=== PATIENT | male | born 1930 | race African-American/Black ===

== ENCOUNTER 2016-10-12 08:34 | Day surgery (SDC) | payer MEDICARE, MEDICAID ==
[~2016-10-12 08:34] MED LIST: CYCLOPENTOLATE 0.2%/PHENYLEPHRINE 1% OPH SOLN 2 ML OS PRN; EPINEPHRINE INJ/PF 1 MG/1 ML AMPULE ONE; KETOROLAC TROMETHAMINE 0.45% 4 DROP/0.4 ML DROPERETTE OS PRN; LIDOCAINE 1% INJ-PF (10 MG/ML) 30 ML SDV ONE; TROPICAMIDE 1% OPH SOLN 3 ML OS PRN
[2016-10-12] MEDS: BESIFLOXACIN HCL 0.6% OPH SUSP 5 ML BOTTLE OS PRN ×4 (08:51→09:58)
[2016-10-12] MEDS: TETRACAINE HCL 0.5% OPH SOLN 2 ML OS PRN ×3 (08:52→09:33)
[2016-10-12] MEDS: CYCLOPENTOLATE 0.2%/PHENYLEPHRINE 1% OPH SOLN 2 ML OS PRN ×3 (08:56→09:16)
[2016-10-12] MEDS: TROPICAMIDE 1% OPH SOLN 3 ML OS PRN ×2 (09:03→09:14)
[2016-10-12] MEDS ORDERED: MIDAZOLAM 2 MG/2 ML INJ ONE (09:28)
[2016-10-12] MEDS: CHONDR SU A NA/HYALUR INTRAOC KIT (SURGICARE) ONE ×2 (09:53)
--- NOTE | 2016-10-12 16:54 | [facility] OPERATIVE REPORT E ---
[facility] Operative Report NAME: Terrell MA AGE: 86Y DATE OF SURGERY: ROOM: PREOPERATIVE DIAGNOSIS: CATARACT, LEFT EYE. POSTOPERATIVE DIAGNOSIS: CATARACT, LEFT EYE. OPERATION: Cataract extraction with intraocular lens implant of the left eye. SURGEON: MARCO A ANAND M.D. ANESTHESIA: Topical. PROCEDURE: After obtaining appropriate consent, the patient's left eye was prepped and draped in sterile fashion as well as the surgeon in a sterile manner and cataract surgery was started. First a paracentesis blade was used to make a small side-port incision. Viscoelastic was used to inflate the anterior chamber. Next a 2.4 mm incision was made with the paracentesis blade. A continuous capsulorrhexis incision was made using a cystotome and Utrata forceps. Following this hydrodissection was carried out to make the lens fully loose and mobile and it was rotated 90 degrees. Following this, a wcoxxe-rqz-yhqcitw technique was used to phacoemulsify the lens with a CDE of 15.48. The remaining cortex was removed with irrigation/aspiration. Provisc was instilled into the capsular bag to inflate the bag. A SN60WF, 19.0 diopter lens was placed. The remaining viscoelastic material was removed with irrigation/aspiration. Following this, a 10-0 nylon suture was used to close the incision and it was found to be watertight. Vigamox was instilled in the eye and a protective shield was placed over the eye. The patient returned to the postoperative recovery in stable condition. DICTATING PHYSICIAN: MARCO A ANAND M.D. [id number] PHY#: [id number] ID: [id number] JOB#: [id number] ACCT: [id number] cc:MARCO A ANAND M.D. >
--- NOTE | 2016-10-12 16:54 | DISCHARGE SUMMARY E ---
Discharge Summary NAME: Terrell MA : 1930 AGE: 86Y ADMITTED: 10/12/2016 DISCHARGED: 10/12/2016 HISTORY: This is an 86-year-old male who underwent cataract extraction of the left eye. DIAGNOSIS: Cataract left eye. He underwent surgery because he was having trouble seeing words on the TV. DISCHARGE INSTRUCTIONS: He is to be on a regular diet. No bending at his waist, no heavy lifting. He is to use Besivance, Ilevro, and Durezol at 3:00 p.m. and 8:00 p.m., and sleep with a rigid shield. I will see him for his one day postoperative tomorrow. DICTATING PHYSICIAN: MARCO A ANAND M.D. [id number] PHY#: [id number] ID: [id number] JOB#: [id number] ACCT: [id number] cc:MARCO A ANAND M.D. >
== END 2016-10-12 10:52 | disposition home or self-care (01) ==
LOC: SC 08:34
PROVIDERS: ATTEND Internal Medicine
PROC: 08RK3JZ Replacement of Left Lens with Synthetic Substitute, Percutaneous Approach (ICD-10-PCS; principal; 2016-10-12 09:30)
DX: H25.813 Combined forms of age-related cataract, bilateral (principal); E07.9 Disorder of thyroid, unspecified; I10 Essential (primary) hypertension; M10.9 Gout, unspecified; Z79.899 Other long term (current) drug therapy; Z79.82 Long term (current) use of aspirin; Z95.0 Presence of cardiac pacemaker
CPT/HCPCS: 66984; V2632; J2250; J3490 ×2; A9270; J0171; 142

== ENCOUNTER 2016-11-02 08:05 | Day surgery (SDC) | payer MEDICARE, MEDICAID ==
[~2016-11-02 08:05] MED LIST changes: -CYCLOPENTOLATE 0.2%/PHENYLEPHRINE 1% OPH SOLN 2 ML OS PRN; -EPINEPHRINE INJ/PF 1 MG/1 ML AMPULE ONE; +KETOROLAC TROMETHAMINE 0.45% 4 DROP/0.4 ML DROPERETTE OD PRN; -KETOROLAC TROMETHAMINE 0.45% 4 DROP/0.4 ML DROPERETTE OS PRN; -LIDOCAINE 1% INJ-PF (10 MG/ML) 30 ML SDV ONE; -TROPICAMIDE 1% OPH SOLN 3 ML OS PRN
[2016-11-02] MEDS: TETRACAINE HCL 0.5% OPH SOLN 2 ML OD PRN ×3 (08:52→09:32)
[2016-11-02] MEDS: TROPICAMIDE 1% OPH SOLN 3 ML OD PRN ×3 (08:53→09:13)
[2016-11-02] MEDS: CYCLOPENTOLATE 0.2%/PHENYLEPHRINE 1% OPH SOLN 2 ML OD PRN ×3 (08:54→09:14)
[2016-11-02] MEDS: BESIFLOXACIN HCL 0.6% OPH SUSP 5 ML BOTTLE OD PRN ×3 (08:54→10:06)
[2016-11-02] MEDS ORDERED: EPINEPHRINE INJ/PF 1 MG/1 ML AMPULE ONE (09:04)
[2016-11-02] MEDS ORDERED: LIDOCAINE 1% INJ-PF (10 MG/ML) 30 ML SDV ONE (09:05)
[2016-11-02] MEDS ORDERED: CHONDR SU A NA/HYALUR INTRAOC KIT (SURGICARE) ONE (09:05)
[2016-11-02] MEDS ORDERED: MIDAZOLAM 2 MG/2 ML INJ ONE (09:23)
[2016-11-02] MEDS ORDERED: FENTANYL CITRATE INJ/PF 100 MCG/2 ML AMPUL ONE (09:23)
--- NOTE | 2016-11-02 20:13 | [facility] OPERATIVE REPORT E ---
[facility] Operative Report NAME: Terrell MA AGE: 86Y DATE OF SURGERY: 11/02/2016 ROOM: PREOPERATIVE DIAGNOSIS: CATARACT, RIGHT EYE. POSTOPERATIVE DIAGNOSIS: CATARACT, RIGHT EYE. OPERATION: Cataract extraction with intraocular lens implant of the right eye. SURGEON: MARCO A ANAND M.D. ANESTHESIA: Topical. PROCEDURE: After obtaining appropriate consent, the patient's right eye was prepped and draped in sterile fashion as well as the surgeon in a sterile manner and cataract surgery was started. First a paracentesis blade was used to make a small side-port incision. Viscoelastic was used to inflate the anterior chamber. Next a 2.4 mm incision was made with the paracentesis blade. A continuous capsulorrhexis incision was made using a cystotome and Utrata forceps. Following this hydrodissection was carried out to make the lens fully loose and mobile and it was rotated 90 degrees. Following this, a gljbqs-ruo-fjwmsgr technique was used to phacoemulsify the lens with a CDE of 15.74. The remaining cortex was removed with irrigation/aspiration. Provisc was instilled into the capsular bag to inflate the bag. A SN60WF, 18.0 diopter lens was placed. The remaining viscoelastic material was removed with irrigation/aspiration. Following this, a 10-0 nylon suture was used to close the incision and it was found to be watertight. Vigamox was instilled in the eye and a protective shield was placed over the eye. The patient returned to the postoperative recovery in stable condition. DICTATING PHYSICIAN: MARCO A ANAND M.D. [id number] [id number] PHY#: [id number] ID: [id number] JOB#: [id number] ACCT: [id number] cc:MARCO A ANAND M.D. >
--- NOTE | 2016-11-02 20:18 | DISCHARGE SUMMARY E ---
Discharge Summary NAME: Terrell MA : 1930 AGE: 86Y ADMITTED: 11/02/2016 DISCHARGED: 11/02/2016 This is an 86-year-old male who underwent cataract extraction of the right eye. DIAGNOSIS: Cataract, right eye. He underwent surgery because he was having difficulty reading small print *------*. DISCHARGE INSTRUCTIONS: He is to be on a regular diet. No bending at his waist, no heavy lifting. He is to use Besivance, Ilevro, and Durezol at 3:00 p.m. and 8:00 p.m., and sleep with a rigid shield. I will see him for his one day postoperative tomorrow. DICTATING PHYSICIAN: MARCO A ANAND M.D. [id number] [id number] PHY#: [id number] ID: [id number] JOB#: [id number] ACCT: [id number] cc:MARCO A ANAND M.D. >
== END 2016-11-02 11:06 | disposition home or self-care (01) ==
LOC: SC 08:05
PROVIDERS: ATTEND Internal Medicine
PROC: 08RJ3JZ Replacement of Right Lens with Synthetic Substitute, Percutaneous Approach (ICD-10-PCS; principal; 2016-11-02 09:30)
DX: H25.811 Combined forms of age-related cataract, right eye (principal); Z96.1 Presence of intraocular lens; I10 Essential (primary) hypertension; E07.9 Disorder of thyroid, unspecified; M10.9 Gout, unspecified; Z79.899 Other long term (current) drug therapy; Z88.8 Allergy status to other drugs, medicaments and biological substances; Z79.82 Long term (current) use of aspirin
CPT/HCPCS: 66984; V2632; J2250; J3490 ×2; A9270; J0171; J3010; 142

== ENCOUNTER → 2016-11-17 | Outpatient (CLI) | payer MEDICARE, MEDICAID ==
[2016-11-17 12:09] LABS: ABSOLUTE BASOPHILS # (AUTO) 0.1 10^3/uL (0.0-0.2); ABSOLUTE EOSINOPHILS # (AUTO) 0.1 10^3/uL (0.0-0.6); ABSOLUTE LYMPHOCYTES (AUTO) 1.1 10^3/uL (0.5-4.7); ABSOLUTE MONOCYTES (AUTO) 0.8 10^3/uL (0.1-1.4); BASOPHILS % (AUTO) 1.4 % (0-2); HEMATOCRIT 32.2 % (37.9-51.0); HEMOGLOBIN 10.5 g/dL (13.5-17.0); HGB HCT DIFFERENCE -0.7; MEAN CORPUSCULAR HEMOGLOBIN 34.1 pg (27.0-33.4); MEAN CORPUSCULAR HGB CONC 32.6 g/dL (32.0-36.0); MEAN CORPUSCULAR VOLUME 105 fl (80-97); MONOCYTES % (AUTO) 15.1 % (3-13); RED BLOOD COUNT 3.08 10^6/uL (4.35-5.55); RED CELL DISTRIBUTION WIDTH 16.7 % (11.5-14.0); SEGMENTED NEUTROPHILS % (AUTO) 59.5 % (42-78); WHITE BLOOD COUNT 5.1 10^3/uL (4.0-10.5)
[2016-11-17 12:45] LABS: ALBUMIN 4.1 g/dL (3.5-5.0); ANION GAP 14 (5-19); BLOOD UREA NITROGEN 55 mg/dL (7-20); CARBON DIOXIDE 22 mmol/L (22-30); CHLORIDE 108 mmol/L (98-107); CREATININE RESULT 1.99 mg/dL (0.52-1.25); GLUCOSE 88 mg/dL (75-110); PHOSPHORUS 4.2 mg/dL (2.5-4.5); POTASSIUM 4.6 mmol/L (3.6-5.0); SODIUM 143.7 mmol/L (137-145)
[2016-11-18 10:37] LABS: CREATININE URINE 256.8 mg/dL (Not Estab.); MICROALBUMIN URINE 6.3 ug/mL (Not Estab.)
[2016-11-18 14:15] LABS: VITAMIN D 25-HYDROXY 61.2 ng/mL (30.0-100.0)
== END ==
LOC: OD 11:15
PROVIDERS: ATTEND Internal Medicine Nephrology
DX: N18.3 Chronic kidney disease, stage 3 (moderate) (principal); D63.1 Anemia in chronic kidney disease; E55.9 Vitamin D deficiency, unspecified
CPT/HCPCS: 36415; 80048; 82040; 82043; 82306; 82570; 83970; 84100; 85025

== ENCOUNTER → 2017-05-24 | Outpatient (CLI) | payer MEDICARE, MEDICAID ==
[2017-05-24 11:08] LABS: ABSOLUTE LYMPHOCYTES (AUTO) 0.8 10^3/uL (0.5-4.7); ABSOLUTE MONOCYTES (AUTO) 0.5 10^3/uL (0.1-1.4); ABSOLUTE NEUT (AUTO) 6.7 10^3/uL (1.7-8.2); BASOPHILS % (AUTO) 0.3 % (0-2); EOSINOPHILS % (AUTO) 0.1 % (0-6); HEMOGLOBIN 10.4 g/dL (13.5-17.0); HGB HCT DIFFERENCE 0.2; LYMPHOCYTES % (AUTO) 9.9 % (13-45); MEAN CORPUSCULAR HEMOGLOBIN 34.1 pg (27.0-33.4); MEAN CORPUSCULAR HGB CONC 33.4 g/dL (32.0-36.0); MEAN CORPUSCULAR VOLUME 102 fl (80-97); MONOCYTES % (AUTO) 6.3 % (3-13); RED BLOOD COUNT 3.04 10^6/uL (4.35-5.55); RED CELL DISTRIBUTION WIDTH 15.8 % (11.5-14.0); SEGMENTED NEUTROPHILS % (AUTO) 83.4 % (42-78)
[2017-05-24 11:26] LABS: ANION GAP 17 (5-19); BLOOD UREA NITROGEN 38 mg/dL (7-20); CALCIUM 9.9 mg/dL (8.4-10.2); CARBON DIOXIDE 21 mmol/L (22-30); CHLORIDE 104 mmol/L (98-107); GLUCOSE 109 mg/dL (75-110); POTASSIUM 4.5 mmol/L (3.6-5.0); SODIUM 141.6 mmol/L (137-145)
[2017-05-24 12:32] LABS: FOLATE 8.97 ng/mL (>2.76)
== END ==
LOC: OD 10:08
PROVIDERS: ATTEND Internal Medicine Nephrology
DX: N18.3 Chronic kidney disease, stage 3 (moderate) (principal); D63.1 Anemia in chronic kidney disease
CPT/HCPCS: 36415; 80048; 82607; 82728; 82746; 83540; 83550; 85025

== ENCOUNTER → 2017-11-28 | Outpatient (CLI) | payer MEDICARE, MEDICAID ==
[2017-11-28 10:39] LABS: ABSOLUTE EOSINOPHILS # (AUTO) 0.1 10^3/uL (0.0-0.6); ABSOLUTE LYMPHOCYTES (AUTO) 1.7 10^3/uL (0.5-4.7); ABSOLUTE MONOCYTES (AUTO) 0.4 10^3/uL (0.1-1.4); ABSOLUTE NEUT (AUTO) 3.6 10^3/uL (1.7-8.2); BASOPHILS % (AUTO) 0.5 % (0-2); EOSINOPHILS % (AUTO) 2.2 % (0-6); HEMATOCRIT 33.1 % (37.9-51.0); HEMOGLOBIN 10.8 g/dL (13.5-17.0); LYMPHOCYTES % (AUTO) 28.6 % (13-45); MEAN CORPUSCULAR HEMOGLOBIN 33.1 pg (27.0-33.4); MEAN CORPUSCULAR HGB CONC 32.7 g/dL (32.0-36.0); MEAN CORPUSCULAR VOLUME 101 fl (80-97); MONOCYTES % (AUTO) 7.1 % (3-13); PLATELET COUNT 117 10^3/uL (150-450); RED BLOOD COUNT 3.27 10^6/uL (4.35-5.55); RED CELL DISTRIBUTION WIDTH 14.6 % (11.5-14.0); SEGMENTED NEUTROPHILS % (AUTO) 61.6 % (42-78); TOTAL CELLS COUNTED % (AUTO) 100 %; WHITE BLOOD COUNT 5.8 10^3/uL (4.0-10.5)
[2017-11-28 10:45] LABS: ANION GAP 12 (5-19); BLOOD UREA NITROGEN 39 mg/dL (7-20); CALCIUM 9.9 mg/dL (8.4-10.2); CARBON DIOXIDE 25 mmol/L (22-30); CHLORIDE 106 mmol/L (98-107); GLUCOSE 126 mg/dL (75-110); IRON(TIBC) 119.1 ug/dL (49-181); POTASSIUM 3.9 mmol/L (3.6-5.0); SODIUM 142.9 mmol/L (137-145)
[2017-11-28 11:48] LABS: FOLATE 7.91 ng/mL (>2.76)
== END ==
LOC: OD 09:09
PROVIDERS: ATTEND Internal Medicine Nephrology
DX: N18.9 Chronic kidney disease, unspecified (principal)
CPT/HCPCS: 36415; 80048; 82607; 82728; 82746; 83540; 83550; 84466; 85025

== ENCOUNTER → 2018-05-31 | Outpatient (CLI) | payer MEDICARE, MEDICAID ==
[2018-05-31 13:18] LABS: APPEARANCE,URINE CLOUDY; BILIRUBIN,URINE NEGATIVE (NEGATIVE); GLUCOSE, URINE NEGATIVE (NEGATIVE); KETONES,URINE NEGATIVE (NEGATIVE); LEUKOCYTE ESTERASE,URINE TRACE (NEGATIVE); NITRITE,URINE NEGATIVE (NEGATIVE); PROTEIN,URINE NEGATIVE (NEGATIVE)
[2018-05-31 13:20] LABS: COLOR,URINE YELLOW
[2018-05-31 13:47] LABS: ALBUMIN 3.8 g/dL (3.5-5.0); ANION GAP 13 (5-19); BLOOD UREA NITROGEN 24 mg/dL (7-20); CALCIUM 9.7 mg/dL (8.4-10.2); CARBON DIOXIDE 21 mmol/L (22-30); CHLORIDE 108 mmol/L (98-107); GLUCOSE 103 mg/dL (75-110); PHOSPHORUS 3.6 mg/dL (2.5-4.5); POTASSIUM 4.5 mmol/L (3.6-5.0); SODIUM 141.8 mmol/L (137-145)
[2018-05-31 14:18] LABS: ABSOLUTE EOSINOPHILS # (AUTO) 0.2 10^3/uL (0.0-0.6); ABSOLUTE LYMPHOCYTES (AUTO) 1.4 10^3/uL (0.5-4.7); ABSOLUTE MONOCYTES (AUTO) 0.4 10^3/uL (0.1-1.4); ABSOLUTE NEUT (AUTO) 3.4 10^3/uL (1.7-8.2); BASOPHILS % (AUTO) 0.9 % (0-2); EOSINOPHILS % (AUTO) 3.3 % (0-6); HEMATOCRIT 32.6 % (37.9-51.0); HEMOGLOBIN 10.9 g/dL (13.5-17.0); MEAN CORPUSCULAR HEMOGLOBIN 34.5 pg (27.0-33.4); MEAN CORPUSCULAR HGB CONC 33.3 g/dL (32.0-36.0); MEAN CORPUSCULAR VOLUME 103 fl (80-97); PLATELET COUNT 143 10^3/uL (150-450); RED BLOOD COUNT 3.15 10^6/uL (4.35-5.55); RED CELL DISTRIBUTION WIDTH 16.2 % (11.5-14.0); SEGMENTED NEUTROPHILS % (AUTO) 61.8 % (42-78); TOTAL CELLS COUNTED % (AUTO) 100 %; WHITE BLOOD COUNT 5.5 10^3/uL (4.0-10.5)
[2018-06-01 13:37] LABS: CREATININE URINE 199.6 mg/dL (Not Estab.); MICROALBUMIN URINE 13.7 ug/mL (Not Estab.)
== END ==
LOC: OD 12:02
PROVIDERS: ATTEND Internal Medicine Nephrology
DX: I12.9 Hypertensive chronic kidney disease with stage 1 through stage 4 chronic kidney disease, or unspecified chronic kidney disease (principal); N18.3 Chronic kidney disease, stage 3 (moderate); D63.1 Anemia in chronic kidney disease; E55.9 Vitamin D deficiency, unspecified
CPT/HCPCS: 36415; 80048; 81001; 82040; 82043; 82306; 82570; 83970; 84100; 85025

== ENCOUNTER → 2018-08-16 | Outpatient (CLI) | payer MEDICARE, MEDICAID ==
--- NOTE | 2018-08-16 13:11 | RADIOLOGY REPORT (SQ) ---
EXAM DESCRIPTION: CHEST PA/LATERAL COMPLETED DATE/TIME: 08/16/2018 12:41 pm REASON FOR STUDY: SOB COMPARISON: Two-view chest 08/19/2014 CT chest 06/22/2011 EXAM PARAMETERS: NUMBER OF VIEWS: two views TECHNIQUE: Digital Frontal and Lateral radiographic views of the chest acquired. RADIATION DOSE: NA LIMITATIONS: none FINDINGS: LUNGS AND PLEURA: Small bilateral pleural effusions are present. There is mild bibasilar airspace disease likely atelectasis. Pneumonia could not entirely be exclude d. No pneumothorax MEDIASTINUM AND HILAR STRUCTURES: No masses or contour abnormalities. HEART AND VASCULAR STRUCTURES: Mild cardiomegaly BONES: No acute findings. HARDWARE: Left-sided pacemaker/defibrillator OTHER: No other significant finding. IMPRESSION: Small bilateral pleural effusions with mild bibasilar atelectasis TECHNICAL DOCUMENTATION: JOB ID: [id number] [employer]- All Rights Reserved Reading location - IP/workstation name: [email or web address]
--- NOTE | 2018-08-16 13:13 | RADIOLOGY REPORT (SQ) ---
EXAM DESCRIPTION: KUB COMPLETED DATE/TIME: 08/16/2018 12:41 pm REASON FOR STUDY: ABDOMINAL PAIN R06.02 SHORTNESS OF BREATH R10.84 GENERALIZED ABDOMINAL PAIN COMPARISON: Three-way abdomen series 08/18/2014 CT abdomen pelvis 08/19/2014 NUMBER OF VIEWS: One view. TECHNIQUE: Supine radiographic image of the abdomen acquired. LIMITATIONS: None. FINDINGS: BOWEL GAS PATTERN: Normal bowel gas pattern. No dilated loops. CALCIFICATIONS: Multiple calcified pelvic phleboliths. Arterial vascular calcifications in the pelvi s SOFT TISSUES: No gross mass or suggestion of organomegaly. HARDWARE: None in the abdomen. BONES: Advanced osteoarthritis bilateral hips. Advanced facet arthropathy lower lumbar spine OTHER: No other significant finding. IMPRESSION: NO RADIOGRAPHIC EVIDENCE FOR ACUTE ABDOMINAL DISEASE. TECHNICAL DOCUMENTATION: JOB ID: [id number] [employer]- All Rights Reserved Reading location - IP/workstation name: [email or web address]
== END ==
LOC: OD 12:17
PROVIDERS: ATTEND Family Medicine
DX: J90 Pleural effusion, not elsewhere classified (principal); R06.02 Shortness of breath; R10.84 Generalized abdominal pain
CPT/HCPCS: 71046; 74018

== ENCOUNTER → 2018-10-14 | Outpatient (CLI) | payer MEDICARE, MEDICAID ==
[2018-10-14 12:28] LABS: ANION GAP 11 (5-19); BLOOD UREA NITROGEN 28 mg/dL (7-20); CALCIUM 9.2 mg/dL (8.4-10.2); CARBON DIOXIDE 24 mmol/L (22-30); CHLORIDE 110 mmol/L (98-107); GLUCOSE 88 mg/dL (75-110); POTASSIUM 3.8 mmol/L (3.6-5.0); SODIUM 144.6 mmol/L (137-145)
== END ==
LOC: OD 10:38
PROVIDERS: ATTEND Internal Medicine Nephrology
DX: N18.3 Chronic kidney disease, stage 3 (moderate) (principal); D63.1 Anemia in chronic kidney disease
CPT/HCPCS: 36415; 80048

== ENCOUNTER → 2018-11-11 | Outpatient (CLI) | payer MEDICARE, MEDICAID ==
[2018-11-11 13:21] LABS: ABSOLUTE EOSINOPHILS # (AUTO) 0.1 10^3/uL (0.0-0.6); ABSOLUTE LYMPHOCYTES (AUTO) 0.9 10^3/uL (0.5-4.7); ABSOLUTE MONOCYTES (AUTO) 0.4 10^3/uL (0.1-1.4); ABSOLUTE NEUT (AUTO) 1.7 10^3/uL (1.7-8.2); BASOPHILS % (AUTO) 1.4 % (0-2); HEMOGLOBIN 10.9 g/dL (13.5-17.0); LYMPHOCYTES % (AUTO) 28.8 % (13-45); MEAN CORPUSCULAR HEMOGLOBIN 34.5 pg (27.0-33.4); MEAN CORPUSCULAR VOLUME 105 fl (80-97); MONOCYTES % (AUTO) 12.9 % (3-13); PLATELET COUNT 100 10^3/uL (150-450); RED BLOOD COUNT 3.16 10^6/uL (4.35-5.55); RED CELL DISTRIBUTION WIDTH 17.5 % (11.5-14.0); SEGMENTED NEUTROPHILS % (AUTO) 52.9 % (42-78); TOTAL CELLS COUNTED % (AUTO) 100 %; WHITE BLOOD COUNT 3.1 10^3/uL (4.0-10.5)
[2018-11-11 13:42] LABS: ALBUMIN 3.5 g/dL (3.5-5.0); ANION GAP 9 (5-19); BLOOD UREA NITROGEN 27 mg/dL (7-20); CARBON DIOXIDE 30 mmol/L (22-30); CHLORIDE 102 mmol/L (98-107); GLUCOSE 103 mg/dL (75-110); PHOSPHORUS 3.8 mg/dL (2.5-4.5); SODIUM 141.4 mmol/L (137-145)
[2018-11-11 13:51] LABS: POTASSIUM 2.9 mmol/L (3.6-5.0)
[2018-11-11 14:32] LABS: APPEARANCE,URINE SLIGHTLY HAZY; BILIRUBIN,URINE NEGATIVE (NEGATIVE); COLOR,URINE LIGHT YELLOW; GLUCOSE, URINE NEGATIVE (NEGATIVE); KETONES,URINE NEGATIVE (NEGATIVE); LEUKOCYTE ESTERASE,URINE TRACE (NEGATIVE); NITRITE,URINE NEGATIVE (NEGATIVE); PROTEIN,URINE 30 mg/dL (NEGATIVE); URINE SPECIFIC GRAVITY 1.014
[2018-11-11 14:33] LABS: ADD MANUAL MICROSCOPIC YES; BACTERIA,URINE TRACE /HPF; GRANULAR CASTS,URINE 0-1 /LPF
[2018-11-11 14:34] LABS: WBC,URINE 0-1 /HPF
== END ==
LOC: OD 12:11
PROVIDERS: ATTEND Internal Medicine Nephrology
DX: I12.9 Hypertensive chronic kidney disease with stage 1 through stage 4 chronic kidney disease, or unspecified chronic kidney disease (principal); N18.3 Chronic kidney disease, stage 3 (moderate); D63.1 Anemia in chronic kidney disease; R80.9 Proteinuria, unspecified; E53.9 Vitamin B deficiency, unspecified
CPT/HCPCS: 36415; 80069; 81001; 82306; 83970; 85025

== ENCOUNTER 2019-01-07 08:32 | Inpatient (IN) | payer MEDICARE, MEDICAID ==
--- NOTE | 2019-01-07 08:42 | ER Document Report ---
ED General - General Stated Complaint: WEAKNESS Time Seen by Provider: 01/07/19 08:36 Primary Care Provider: MAL LYNCH MD [Primary Care Provider] - Follow up as needed Notes: 88-year-old male resents from home via EMS for generalized weakness not taking medications and lethargy for 3 days. History of CKD has not had any of his meds. Hypotensive to 50 systolic for EMS, received a total of 2 L of fluid increasing his pressure to the 110s. He says only his toes hurt. He is largely disoriented and unclear if this is his baseline. Apparently he has an EF in the 30s. TRAVEL OUTSIDE OF THE [place] IN LAST 30 DAYS: No - Related Data Allergies/Adverse Reactions: pseudoephedrine HCl [From Sudafed] Allergy (Severe, Verified 01/07/19 09:09) SWELLING amlodipine besylate [From Lotrel] Allergy (Unknown, Verified 01/07/19 09:09) benazepril HCl [From Lotrel] Allergy (Unknown, Verified 01/07/19 09:09) Past Medical History - Social History Smoking Status: Never Smoker Family History: None - Past Medical History Cardiac Medical History: Reports: Hx Hypertension Denies: Hx Heart Attack Pulmonary Medical History: Denies: Hx Asthma Neurological Medical History: Denies: Hx Cerebrovascular Accident, Hx Seizures GI Medical History: Denies: Hx Hepatitis, Hx Hiatal Hernia, Hx Ulcer Infectious Medical History: Denies: Hx Hepatitis Past Surgical History: Reports: Hx Pacemaker. Denies: Hx Open Heart Surgery - Immunizations Hx Diphtheria, Pertussis, Tetanus Vaccination: Yes Review of Systems - Review of Systems Notes: REVIEW OF SYSTEMS Due to dementia PHYSICAL EXAMINATION General: Appears dehydrated and chronically ill Head: Atraumatic, normocephalic ENT: Mouth normal, oropharynx moist, no exudates or tonsillar enlargement Eyes: Conjunctiva normal, pupils equal, lids normal Neck: No JVD, supple, no guarding CVS: Normal rate, regular rhythm, no murmurs Resp: No resp distress, equal and normal breath sounds bilaterally GI: Nondistended, soft, no tenderness to palpation, no rebound or guarding Ext: No deformities, no edema, normal range of motion in upper and lower ext Back: No CVA or midline TTP Skin: No rash, warm Lymphatic: No lymphadeopathy noted Neuro: Awake, alert. Face follows commands with all 4 extremities, oriented to name and place but not year Physical Exam - Vital signs Vitals: Resp Pulse Ox 20 100 01/07/19 09:00 01/07/19 09:00 Course - Re-evaluation Re-evalutation: 01/07/19 09:20 Presents with hypotension and altered mental status in the setting of poor EF and lack of food or medication. Electro lites versus infection versus anemia versus dehydration. Given fluids. We did send a septic work-up on the patient. His EKG showed a paced rhythm. After arrival his blood pressure dropped and at about 9:20 AM had a long conversation with his son/power of divorce attorney. We agreed to continue aggressive care up until pressors and antibiotics but we both agreed that he would not want to have CPR or be intubated so he was made DNR per his son's wishes and I filled out this paperwork. 01/07/19 10:26 Reevaluated after fluidsblood pressure is in the 110s and patient looks better. Today he has acute kidney injury with low magnesium and very mild hyperkalemia. Is likely the cause of his ectopy. I have ordered a magnesium I will also treat for hyperkalemia given his EKG abnormality is although is difficult to tell given his pacemaker. 01/07/19 10:[address] Barton who recommends inpatient admission to the ICU, and that I speak with Dr. Nelson from renal. Agrees with treatment plan. 01/07/19 10:40 Patient's chest x-ray and CT head are negative. Acute changes. - Vital Signs Vital signs: Temp Pulse Resp BP Pulse Ox 97.5 F 29 H 105/39 L 100 01/07/19 09:12 01/07/19 10:09 01/07/19 10:09 01/07/19 09:46 - Laboratory Result Diagrams: 01/07/19 09:00 01/07/19 09:00 Laboratory results interpreted by me: 01/07/19 01/07/19 09:00 09:00 WBC 3.7 L RBC 3.22 L Hgb 10.6 L Hct 33.4 L MCV 104 H MCHC 31.8 L RDW 16.0 H Plt Count 87 L Potassium 5.5 H Chloride 109 H Carbon Dioxide 21 L BUN 79 H Creatinine 3.72 H Est GFR ( Amer) 19 L Est GFR (Non-Af Amer) 15 L Glucose 131 H Magnesium 1.3 L - Diagnostic Test Radiology reviewed: Image reviewed, Reports reviewed - EKG Interpretation by Me EKG shows normal: Sinus rhythm, QRS Complexes - Wide/paced Rate: Tachycardia When compared to previous EKG there are: Changes noted - Ectopic beats Critical Care Note - Critical Care Note Total time excluding time spent on procedures (mins): 35 Comments: The above patient is critically ill. Not including procedures, but including direct re-evaluations, speaking with patient and/or consultants, interpreting results, and documenting, I spent the total amount of minute listed listed above on critical care time. CODE STATUS changed from full code to DNR. Discharge - Discharge Clinical Impression: Hypotension Qualifiers: Hypotension type: unspecified hypotension type Qualified Code(s): I95.9 - Hypotension, unspecified Condition: Critical Disposition: ADMITTED INPATIENT Admitting Provider: [facility] Unit Admitted: ICU Referrals: MAL LYNCH MD [Primary Care Provider] - Follow up as needed
[2019-01-07] MEDS ORDERED: RINGERS SOLUTION,LACTATED 1,000 ML IV ONE (09:19)
[2019-01-07] MEDS ORDERED: CEFTRIAXONE 1 GM/D5W RTU 1 GM/50 ML RTUPB IV ONE (09:19)
[2019-01-07 09:29] LABS: ABSOLUTE EOSINOPHILS # (AUTO) 0.1 10^3/uL (0.0-0.6); ABSOLUTE LYMPHOCYTES (AUTO) 0.8 10^3/uL (0.5-4.7); ABSOLUTE MONOCYTES (AUTO) 0.5 10^3/uL (0.1-1.4); ABSOLUTE NEUT (AUTO) 2.3 10^3/uL (1.7-8.2); BASOPHILS % (AUTO) 1.2 % (0-2); EOSINOPHILS % (AUTO) 1.7 % (0-6); HEMATOCRIT 33.4 % (37.9-51.0); HEMOGLOBIN 10.6 g/dL (13.5-17.0); LYMPHOCYTES % (AUTO) 22.7 % (13-45); MEAN CORPUSCULAR HGB CONC 31.8 g/dL (32.0-36.0); MEAN CORPUSCULAR VOLUME 104 fl (80-97); MONOCYTES % (AUTO) 12.8 % (3-13); RED BLOOD COUNT 3.22 10^6/uL (4.35-5.55); SEGMENTED NEUTROPHILS % (AUTO) 61.6 % (42-78); TOTAL CELLS COUNTED % (AUTO) 100 %; WHITE BLOOD COUNT 3.7 10^3/uL (4.0-10.5)
[2019-01-07 09:31] LABS: ANION GAP 11 (5-19); BLOOD UREA NITROGEN 79 mg/dL (7-20); CALCIUM 9.5 mg/dL (8.4-10.2); CARBON DIOXIDE 21 mmol/L (22-30); CHLORIDE 109 mmol/L (98-107); GLUCOSE 131 mg/dL (75-110); POTASSIUM 5.5 mmol/L (3.6-5.0); SODIUM 141.4 mmol/L (137-145)
[2019-01-07 09:56] LABS: PLATELET COUNT 87 10^3/uL (150-450)
--- NOTE | 2019-01-07 10:22 | RADIOLOGY REPORT (SQ) ---
EXAM DESCRIPTION: CT HEAD WITHOUT COMPLETED DATE/TIME: 01/07/2019 10:02 am REASON FOR STUDY: AMS COMPARISON: CT brain 06/13/2011 TECHNIQUE: Axial images acquired through the brain without intravenous contrast. Images reviewed wi th bone, brain and subdural windows. Additional sagittal and coronal reconstructions were generated. Images stored on PACS. All CT scanners at this facility use dose modulation, iterative reconstruction, and/or weight based d osing when appropriate to reduce radiation dose to as low as reasonably achievable (ALARA). [facility]: Dose Right [facility]: CareDose [facility]: Dose Right [facility]: Teradose 4D [facility]: GovDelivery RADIATION DOSE: CT Rad equipment meets quality standard of care and radiation dose reduction techniq ues were employed. CTDIvol: 53.2 mGy. DLP: 1044 mGy-cm. mGy. LIMITATIONS: None. FINDINGS: VENTRICLES: Normal size and contour. CEREBRUM: No masses. No hemorrhage. No midline shift. No evidence for acute infarction. Bilateral basal ganglia calcifications. Minimal spotty age-appropriate bifrontal and biparietal chronic small vessel ischemic change in the hemispheric white matter CEREBELLUM: No masses. No hemorrhage. No alteration of density. No evidence for acute infarction. EXTRAAXIAL SPACES: No fluid collections. No masses. ORBITS AND GLOBE: No intra- or extraconal masses. Globes post cataract surgery CALVARIUM: No fracture. PARANASAL SINUSES: No fluid or mucosal thickening. SOFT TISSUES: No mass or hematoma. OTHER: No other significant finding. IMPRESSION: No acute findings EVIDENCE OF ACUTE STROKE: NO. COMMENT: Quality ID # [id number]: Final reports with documentation of one or more dose reduction techniques (e.g., Automated exposure control, adjustment of the mA and/or kV according to patient size, use of iterative reconstruction technique) TECHNICAL DOCUMENTATION: JOB ID: [id number] [employer]- All Rights Reserved Reading location - IP/workstation name: [email or web address]
[2019-01-07] MEDS ORDERED: MAGNESIUM SULFATE/D5W 1 GM/100 ML RTUPB IV ONE (10:24)
--- NOTE | 2019-01-07 10:24 | RADIOLOGY REPORT (SQ) ---
EXAM DESCRIPTION: CHEST SINGLE VIEW COMPLETED DATE/TIME: 01/07/2019 9:58 am REASON FOR STUDY: FTT, rpo PNA COMPARISON: Two-view chest 08/16/2018, 08/19/2014 EXAM PARAMETERS: NUMBER OF VIEWS: One view. TECHNIQUE: Single frontal radiographic view of the chest acquired. RADIATION DOSE: NA LIMITATIONS: None. FINDINGS: LUNGS AND PLEURA: No opacities, masses or pneumothorax. No pleural effusion. MEDIASTINUM AND HILAR STRUCTURES: No masses. Contour normal. HEART AND VASCULAR STRUCTURES: Mild cardiomegaly BONES: No acute findings. HARDWARE: Left-sided dual lead pacemaker OTHER: No other significant finding. IMPRESSION: NO ACUTE RADIOGRAPHIC FINDING IN THE CHEST. TECHNICAL DOCUMENTATION: JOB ID: [id number] [employer]- All Rights Reserved Reading location - IP/workstation name: [email or web address]
[2019-01-07] MEDS ORDERED: ALBUTEROL SULFATE 0.083% NEB 2.5 MG/3 ML AMPUL NEB ONE (10:27)
[2019-01-07] MEDS ORDERED: DEXTROSE 5%-1/2 NORMAL SALINE 1,000 ML IV ONE (10:28)
[2019-01-07] MEDS ORDERED: NORMAL SALINE 1000 ML 1,000 ML IV PRN (10:31)
[2019-01-07] MEDS ORDERED: IPRATROPIUM/ALBUTEROL 0.5-2.5 MG/3 ML AMPUL NEB PRN (10:31)
[2019-01-07 10:54] LABS: APPEARANCE,URINE SLIGHTLY-CLOUDY; BILIRUBIN,URINE NEGATIVE (NEGATIVE); COLOR,URINE YELLOW; GLUCOSE, URINE NEGATIVE (NEGATIVE); KETONES,URINE NEGATIVE (NEGATIVE); LEUKOCYTE ESTERASE,URINE NEGATIVE (NEGATIVE); NITRITE,URINE NEGATIVE (NEGATIVE); PROTEIN,URINE NEGATIVE (NEGATIVE); URINE SPECIFIC GRAVITY 1.009; UROBILINOGEN,URINE NEGATIVE mg/dL (<2.0)
[2019-01-07] MEDS: PIPERACILLIN SODIUM/TAZOBACTAM 2.25 GM in NORMAL SALINE 50 ML IV SCH ×3 (11:24→23:15)
--- NOTE | 2019-01-07 13:20 | PDOC H&P ---
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 Nelson history of the hypertension's hyperlipidemia history of the underlying dementia and multiple other comorbidity brought to the emergency department because of the patient was very lethargic for the last 3 days not eating not drinking much and patient's blood pressure was systolic around 50 patient at this point giving IV fluid and patient had underlying further blood work and a CT scan with source the patient on acute renal failure and hyperkalemia and hypomagnesemia CT head was negative for any acute stroke or any findings Patient at this point most likely from hypovolemic shock due to the dehydra tion's and acute renal failure Patient's when I saw in the emergency department feeling much better more alert awake oriented patient's blood pressure systolic 120 but diastolic is still running low in the 40 range Patient denied any chest pain denied any shortness of the breath Patient is denied any abdominal pain no nausea no vomiting Patient is complaining of right toe pain No fever no chills Past Medical History Cardiac Medical History: Reports: Congestive Heart Failure, Coronary Artery Disease, Hyperlipidema, Hypertension Denies: Myocardial Infarction Pulmonary Medical History: Denies: Asthma Neurological Medical History: Denies: Seizures Renal/ Medical History: Reports: Chronic Kidney Disease GI Medical History: Reports: Gastroesophageal Reflux Disease Denies: Hepatitis, Hiatal Hernia Musculoskeltal Medical History: Reports: Arthritis - osteo Hematology: Reports: Anemia Denies: Sickle Cell Disease Past Surgical History Past Surgical History: Reports: Pacemaker Social History Smoking Status: Never Smoker Frequency of Alcohol Use: None - Advance Directive Resuscitation Status: Do Not Resuscitate Family History Family History: None Parental Family History Reviewed: Yes Children Family History Reviewed: Yes Sibling(s) Family History Reviewed.: Yes Medication/Allergy Home Medications: Allopurinol [Zyloprim 300 mg Tablet] 300 mg PO DAILY 01/07/19 Carvedilol [Coreg 3.125 mg Tablet] 3.125 mg PO Q12 01/07/19 Colchicine [Colcrys 0.6 mg Tablet] 0.6 mg PO DAILYP PRN 01/07/19 Docusate Sodium [Colace 100 mg Capsule] 100 mg PO DAILY 01/07/19 Dutasteride [Avodart Lf 0.5 mg Capsule] 0.5 mg PO DAILY 01/07/19 Ferrous Sulfate [Feosol 325 mg Tablet] 325 mg PO DAILY 01/07/19 Furosemide [Lasix 20 mg Tablet] 20 mg PO QPM 01/07/19 Furosemide [Lasix 20 mg Tablet] 40 mg PO QAM 01/07/19 Levothyroxine Sodium [Synthroid 0.1 mg Tablet] 0.1 mg PO Q6AM 01/07/19 Paricalcitol [Zemplar 1 Mcg Capsule] 1 mcg PO MOWEFR@1000 01/07/19 Potassium Chloride [Klor-Con M20] 20 meq PO DAILY 01/07/19 Pravastatin Sodium [Pravachol] 40 mg PO QHS 01/07/19 Allergies/Adverse Reactions: pseudoephedrine HCl [From Sudafed] Allergy (Severe, Verified 01/07/19 09:09) SWELLING amlodipine besylate [From Lotrel] Allergy (Unknown, Verified 01/07/19 09:09) benazepril HCl [From Lotrel] Allergy (Unknown, Verified 01/07/19 09:09) Review of Systems Constitutional: PRESENT: fatigue, weakness. ABSENT: chills, fever(s), headache(s), weight gain, weight loss Eyes: ABSENT: visual disturbances Ears: ABSENT: hearing changes Cardiovascular: ABSENT: chest pain, dyspnea on exertion, edema, orthropnea, palpitations Respiratory: ABSENT: cough, hemoptysis Gastrointestinal: ABSENT: abdominal pain, constipation, diarrhea, hematemesis, hematochezia, nausea, vomiting Genitourinary: ABSENT: dysuria, hematuria Musculoskeletal: ABSENT: joint swelling Integumentary: ABSENT: rash, wounds Neurological: ABSENT: abnormal gait, abnormal speech, confusion, dizziness, focal weakness, syncope Psychiatric: ABSENT: anxiety, depression, homidical ideation, suicidal ideation Endocrine: ABSENT: cold intolerance, heat intolerance, menstrual abnormalities, polydipsia, polyuria Hematologic/Lymphatic: ABSENT: easy bleeding, easy bruising, lymphadenopathy Physical Exam Vital Signs: Temp Pulse Resp BP Pulse Ox 97.5 F 14 125/33 L 100 01/07/19 09:12 01/07/19 12:31 01/07/19 12:31 01/07/19 12:11 Intake & Output 01/06/19 01/07/19 01/08/19 06:59 06:59 06:59 Intake Total 2100 Output Total Balance 2094 Weight 65.7 kg General appearance: PRESENT: no acute distress, well-developed, well-nourished Head exam: PRESENT: atraumatic, normocephalic Eye exam: PRESENT: conjunctiva pink, EOMI, PERRLA. ABSENT: scleral icterus Ear exam: PRESENT: normal external ear exam Mouth exam: PRESENT: moist, tongue midline Neck exam: PRESENT: full ROM. ABSENT: carotid bruit, JVD, lymphadenopathy, thyromegaly Respiratory exam: PRESENT: clear to auscultation rama Cardiovascular exam: PRESENT: RRR. ABSENT: diastolic murmur, rubs, systolic murmur Vascular exam: PRESENT: normal capillary refill GI/Abdominal exam: PRESENT: normal bowel sounds, soft. ABSENT: distended, guarding, mass, organolmegaly, rebound, tenderness Rectal exam: PRESENT: deferred Extremities exam: ABSENT: pedal edema Neurological exam: PRESENT: alert, awake, oriented to person, oriented to place, oriented to time, oriented to situation, CN II-XII grossly intact. ABSENT: motor sensory deficit Psychiatric exam: PRESENT: appropriate affect, normal mood. ABSENT: homicidal ideation, suicidal ideation Skin exam: PRESENT: dry, intact, warm. ABSENT: cyanosis, rash Results Laboratory Results: 01/07/19 09:00 01/07/19 09:00 01/07/19 01/07/19 01/07/19 09:00 09:00 09:29 WBC 3.7 L RBC 3.22 L Hgb 10.6 L Hct 33.4 L MCV 104 H MCH 33.0 MCHC 31.8 L RDW 16.0 H Plt Count 87 L Seg Neutrophils % 61.6 Lymphocytes % 22.7 Monocytes % 12.8 Eosinophils % 1.7 Basophils % 1.2 Absolute Neutrophils 2.3 Absolute Lymphocytes 0.8 Absolute Monocytes 0.5 Absolute Eosinophils 0.1 Absolute Basophils 0.0 Sodium 141.4 Potassium 5.5 H Chloride 109 H Carbon Dioxide 21 L Anion Gap 11 BUN 79 H Creatinine 3.72 H Est GFR ( Amer) 19 L Est GFR (Non-Af Amer) 15 L Glucose 131 H Lactic Acid 2.0 Calcium 9.5 Magnesium 1.3 L Urine Color Urine Appearance Urine pH Ur Specific [place] Urine Protein Urine Glucose (UA) Urine Ketones Urine Blood Urine Nitrite Ur Leukocyte Esterase Urine WBC (Auto) Urine RBC (Auto) 01/07/19 10:25 WBC RBC Hgb Hct MCV MCH MCHC RDW Plt Count Seg Neutrophils % Lymphocytes % Monocytes % Eosinophils % Basophils % Absolute Neutrophils Absolute Lymphocytes Absolute Monocytes Absolute Eosinophils Absolute Basophils Sodium Potassium Chloride Carbon Dioxide Anion Gap BUN Creatinine Est GFR ( Amer) Est GFR (Non-Af Amer) Glucose Lactic Acid Calcium Magnesium Urine Color YELLOW Urine Appearance SLIGHTLY-CLOUDY Urine pH 5.0 Ur Specific [place] 1.009 Urine Protein NEGATIVE Urine Glucose (UA) NEGATIVE Urine Ketones NEGATIVE Urine Blood NEGATIVE Urine Nitrite NEGATIVE Ur Leukocyte Esterase NEGATIVE Urine WBC (Auto) 1 Urine RBC (Auto) 0 Impressions: Chest X-Ray 01/07/19 08:36 IMPRESSION: NO ACUTE RADIOGRAPHIC FINDING IN THE CHEST. Head CT 01/07/19 08:36 IMPRESSION: No acute findings EVIDENCE OF ACUTE STROKE: NO. Assessment & Plan - Diagnosis (1) Hypotension Qualifiers: Hypotension type: unspecified hypotension type Qualified Code(s): I95.9 - Hypotension, unspecified Is this a current diagnosis for this admission?: Yes Plan: Most likely due to the hypovolemic shock due to the mostly dehydration's and currently in acute renal failure Patient is already started feeling better after IV hydration's With the patient's very low EF only 20%'s was slowly hydrate the patient's continues closely monitor currently hold all blood pressure medications and hold the diuretics We also get the cultures to rule out any underlying sepsis and empirically cover with the IV antibiotic (2) Acute renal failure Qualifiers: Acute renal failure type: unspecified Qualified Code(s): N17.9 - Acute kidney failure, unspecified Is this a current diagnosis for this admission?: Yes Plan: Due to the patient's generalized weakness poor p.o. intake we will continue IV hydrations consult the nephrology (3) Combined congestive systolic and diastolic heart failure Qualifiers: Heart failure chronicity: chronic Qualified Code(s): I50.42 - Chronic co mbined systolic (congestive) and diastolic (congestive) heart failure Is this a current diagnosis for this admission?: Yes Plan: We will consult the cardiology to rule out any other cardiogenic issues with the low blood pressure especially diastolic blood pressure is running low (4) Hypertension Qualifiers: Hypertension type: unspecified Qualified Code(s): I10 - Essential (primary) hypertension Is this a current diagnosis for this admission?: Yes Plan: Please hold the blood pressure medications (5) Dementia Qualifiers: Dementia type: unspecified type Dementia behavioral disturbance: without behavioral disturbance Qualified Code(s): F03.90 - Unspecified dementia without behavioral disturbance Is this a current diagnosis for this admission?: Yes (6) Pacemaker Is this a current diagnosis for this admission?: Yes (7) Prostatic hyperplasia Is this a current diagnosis for this admission?: Yes - Time Time Spent: 50 to 70 Minutes Critical Time spent with patient: 35 or more minutes Medications reviewed and adjusted accordingly: Yes Anticipated discharge: SNF Within: Other - Inpatient Certification Based on my medical assessment, after consideration of the patient's comorbidities, presenting symptoms, or acuity I expect that the services needed warrant INPATIENT care.: Yes I certify that my determination is in accordance with my understanding of Medicare's requirements for reasonable and necessary INPATIENT services [42 CFR 412.3e].: Yes Medical Necessity: Need Close Monitoring Due to Risk of Patient Decompensation, Need For IV Fluids, Need For Continuous Telemetry Monitoring, Need for IV Antibiotics Post Hospital Care: D/C [employer] Engagement Partner Documentation - Plan Summary Plan Summary: Admit the patient in ICU Continues to IV fluid and IV antibiotic Consult the cardiology and nephrology Discussed with the patient's nephew who is currently caregiver for the patient and discussed with the patient's patient is currently DNR/DNI
[2019-01-07] MEDS ORDERED: HEPARIN SOD (PORCINE) 5,000 UNIT/ML 1 ML SYRINGE SUBCUT SCH (14:00)
[2019-01-07 16:16] LABS: ANION GAP 12 (5-19); BLOOD UREA NITROGEN 73 mg/dL (7-20); CALCIUM 9.4 mg/dL (8.4-10.2); CARBON DIOXIDE 20 mmol/L (22-30); CHLORIDE 108 mmol/L (98-107); GLUCOSE 151 mg/dL (75-110); POTASSIUM 5.3 mmol/L (3.6-5.0); SODIUM 139.8 mmol/L (137-145)
--- NOTE | 2019-01-07 17:45 | EKG REPORT ---
SEVERITY:- ABNORMAL ECG - ATRIAL-SENSED VENTRICULAR-PACED COMPLEXES IVCD, CONSIDER ATYPICAL RBBB : Confirmed by: Arpita Cintron MD 07-Jan-2019 17:44:35
[2019-01-07] MEDS: DOCUSATE SODIUM 100 MG CAPSULE PO SCH (18:25)
[2019-01-07] MEDS: DEXTROSE 5%-1/2 NORMAL SALINE 1,000 ML IV PRN (21:16)
[2019-01-07] MEDS ORDERED: (PENDING PHARMACY ID) (Pravastatin Sodium [Pravachol] 40 MG) PO SCH (22:00)
[2019-01-07] MEDS ORDERED: FAMOTIDINE INJ/PF 20 MG/2 ML SDV IV SCH (22:00)
--- NOTE | 2019-01-07 22:51 | PDOC CONSULTATION ---
Consultation-Blank Consultation: CARDIOLOGY CONSULTATION by Dr. Arpita Cintron on 01/07/2019. REASON FOR CONSULTATION: Hypotension in a patient with the cardiomyopathy. CONSULT REQUESTING PHYSICIAN: Dr. Rudi Barton HISTORY OF PRESENT ILLNESS: Past Medical History Cardiac Medical History: Reports: Congestive Heart Failure, Coronary Artery Disease, Hyperlipidema, Hypertension Denies: Myocardial Infarction Pulmonary Medical History: Denies: Asthma Neurological Medical History: Denies: Seizures Renal/ Medical History: Reports: Chronic Kidney Disease GI Medical History: Reports: Gastroesophageal Reflux Disease Denies: Hepatitis, Hiatal Hernia Musculoskeltal Medical History: Reports: Arthritis - osteo Hematology: Reports: Anemia Denies: Sickle Cell Disease Past Surgical History Past Surgical History: Reports: AICD, and cardiac catheterization. Social History Smoking Status: Never Smoker Frequency of Alcohol Use: None - Advance Directive Resuscitation Status: Do Not Resuscitate. The patient's nephew is his surrogate healthcare decision maker. Family History Family History: Is positive for hypertension. Negative for coronary artery dis ease. Home Medications: Allopurinol [Zyloprim 300 mg Tablet] 300 mg PO DAILY 01/07/19 Carvedilol [Coreg 3.125 mg Tablet] 3.125 mg PO Q12 01/07/19 Colchicine [Colcrys 0.6 mg Tablet] 0.6 mg PO DAILYP PRN 01/07/19 Docusate Sodium [Colace 100 mg Capsule] 100 mg PO DAILY 01/07/19 Dutasteride [Avodart Lf 0.5 mg Capsule] 0.5 mg PO DAILY 01/07/19 Ferrous Sulfate [Feosol 325 mg Tablet] 325 mg PO DAILY 01/07/19 Furosemide [Lasix 20 mg Tablet] 20 mg PO QPM 01/07/19 Furosemide [Lasix 20 mg Tablet] 40 mg PO QAM 01/07/19 Levothyroxine Sodium [Synthroid 0.1 mg Tablet] 0.1 mg PO Q6AM 01/07/19 Paricalcitol [Zemplar 1 Mcg Capsule] 1 mcg PO MOWEFR@1000 01/07/19 Potassium Chloride [Klor-Con M20] 20 meq PO DAILY 01/07/19 Pravastatin Sodium [Pravachol] 40 mg PO QHS 01/07/19 Allergies/Adverse Reactions: pseudoephedrine HCl [From Sudafed] Allergy (Severe, Verified 01/07/19 09:09) SWELLING amlodipine besylate [From Lotrel] Allergy (Unknown, Verified 01/07/19 09:09) benazepril HCl [From Lotrel] Allergy (Unknown, Verified 01/07/19 09:09) Review of Systems Constitutional: PRESENT: fatigue, weakness. ABSENT: chills, fever(s), headache(s), weight gain, weight loss Eyes: ABSENT: visual disturbances Ears: ABSENT: hearing changes Cardiovascular: ABSENT: chest pain, dyspnea on exertion, edema, orthropnea, palpitations Respiratory: ABSENT: cough, hemoptysis Gastrointestinal: ABSENT: abdominal pain, constipation, diarrhea, hematemesis, hematochezia, nausea, vomiting Genitourinary: ABSENT: dysuria, hematuria Musculoskeletal: ABSENT: joint swelling Integumentary: ABSENT: rash, wounds Neurological: ABSENT: abnormal gait, abnormal speech, confusion, dizziness, focal weakness, syncope Psychiatric: ABSENT: anxiety, depression, homidical ideation, suicidal ideation Endocrine: ABSENT: cold intolerance, heat intolerance, menstrual abnormalities, polydipsia, polyuria Hematologic/Lymphatic: ABSENT: easy bleeding, easy bruising, lymphadenopathy PHYSICAL EXAMINATION: The patient is chronically ill appearing, frail build, and is malnourished. Selected Entries 01/07/19 01/07/19 01/07/19 08:32 09:45 16:02 Heart Rate ( 91 Monitors) Respiratory 25 H Rate Blood Pressure 99/60 L Blood Pressure 73 Mean O2 Sat by Pulse 100 Oximetry Oxygen Delivery Room Air Method ( includes room air) HEAD: Is atraumatic, normocephalic. EYES: Pupils equal round regular reactive to light accommodation. Extraocular movements are normal. There is no conjunctival pallor. There is no scleral icterus. EARS: Tympanic memories are intact. External auditory canals are clear. NOSE: There is no deviated nasal septum. There is no inflammation nasal mucous membrane. MOUTH: Mucous members of mouth are dry. Tongue is dry. There is no ulcers in the mouth. There is no bleeding from the gums. THROAT: There is no redness of the oropharynx. There is no exudates. SKIN: There is no skin rashes, there is no petechia or ecchymosis. There is no skin lesions. NECK: Is supple. There is no JVD. Carotids are equal there is no bruit. LUNGS: Clear to auscultation percussion without any rhonchi rales or wheezing. HEART: S1-S2 is heard. There is no S3 gallop. There is no S4 gallop. There is systolic murmur left sternal border and the apex there is no rub. ABDOMEN: Soft. Nontender. There is no hepat osplenic megaly. Bowel sounds are well heard. EXTREMITIES: Femorals are diminished. There is no femoral bruits. Leg pulses are diminished. There is no pedal edema. There is no DVT or cellulitis. There is no cyanosis or clubbing. There is no calf tenderness. [employer]: Patient is conscious awake ,alert, but confused, with no focal deficits PSYCHIATRIC: The patient does not appear to be anxious or agitated. In-depth psychiatric exam not done Current Medications Generic Name Dose Route Start Last Admin Trade Name Freq PRN Reason Stop Dose Admin Acetaminophen 650 mg 01/07/19 10:31 Tylenol 325 Mg Tablet PO 02/06/19 10:30 Q4HP PRN FOR PAIN OR TEMP Albuterol/Ipratropium 3 ml 01/07/19 10:31 Duoneb 3 Ml Ampul NEB 02/06/19 10:30 [id number] PRN SHORTNESS OF BREATH Atorvastatin Calcium 10 mg 01/07/19 22:00 Lipitor 10 Mg Tablet PO 02/06/19 21:59 QHS ELVIN Docusate Sodium 100 mg 01/07/19 18:00 01/07/19 18:25 Colace 100 Mg Capsule PO 02/06/19 17:59 100 mg BID ELVIN Administration Dutasteride 0.5 mg 01/08/19 10:00 Avodart Lf 0.5 Mg Capsule PO 02/07/19 09:59 DAILY ELVIN Famotidine 20 mg 01/07/19 22:00 Pepcid Inj/Pf 20 Mg/2 Ml Sdv IV 02/06/19 21:59 QHS ELVIN Piperacillin Sod/Tazobactam 50 mls @ 100 mls/hr 01/07/19 12:00 01/07/19 18:57 Sod 2.25 gm/ Sodium Chloride IV 01/14/19 11:59 Infused Q6 ELVIN Infusion Dextrose/Sodium Chloride 1,000 mls @ 100 mls/hr 01/07/19 16:49 01/07/19 22:31 D5-1/2ns 1000 Ml Iv Soln IV 02/06/19 16:48 100 mls/hr CONTINUOUS PRN Infusion THIS MED IS NOT "PRN" Levothyroxine Sodium 0.1 mg 01/08/19 06:00 Synthroid 0.1 Mg Tablet PO 02/07/19 05:59 Q6AM ELVIN Sodium Chloride 2.5 ml 01/07/19 14:00 01/07/19 13:34 Saline Flush 2.5 Ml Monoject Prefil Syrin IV 02/06/19 13:59 2.5 ml Q8 ELVIN Administration Discontinued Medications Generic Name Dose Route Start Last Admin Trade Name Freq PRN Reason Stop Dose Admin Albuterol 5 mg 01/07/19 10:27 01/07/19 10:49 Ventolin 0.083% Neb 2.5 Mg/3 Ml Ampul NEB 01/07/19 10:28 5 mg NOW ONE Administration Heparin Sodium (Porcine) 5,000 unit 01/07/19 14:00 01/07/19 13:33 Heparin Inj 5,000 Units/Ml 1 Ml Syringe SUBCUT 02/06/19 13:59 Not Given Q8 ELVIN Ceftriaxone Sodium/Dextrose 1 gm in 50 mls @ 100 mls/hr 01/07/19 09:19 01/07/19 10:35 Rocephin Rtu 1 Gm/D5w 50 Ml Premix IV 01/07/19 09:48 Infused NOW ONE Infusion Lactated Ringer's 1,000 mls @ 500 mls/hr 01/07/19 09:19 01/07/19 11:22 Lactated Ringers 1000 Ml Iv Soln IV 01/07/19 11:18 Infused NOW ONE Infusion Magnesium Sulfate/Dextrose 1 gm in 100 mls @ 100 mls/hr 01/07/19 10:24 01/07/19 11:48 Magnesium Sulfate Rtu-D5w 1 Gm/100 Ml Premix IV 01/07/19 11:23 Infused NOW ONE Infusion Dextrose/Sodium Chloride 1,000 mls @ 150 mls/hr 01/07/19 10:28 01/07/19 18:26 D5-1/2ns 1000 Ml Iv Soln IV 01/07/19 17:07 Infused NOW ONE Infusion Sodium Chloride 1,000 mls @ 70 mls/hr 01/07/19 10:31 Nacl 0.9% 1000 Ml Iv Soln IV 02/06/19 10:30 CONTINUOUS PRN THIS MED IS NOT "PRN" Labs- All tests 24 hr 01/07/19 01/07/19 01/07/19 09:00 09:00 09:29 WBC 3.7 L RBC 3.22 L Hgb 10.6 L Hct 33.4 L MCV 104 H MCH 33.0 MCHC 31.8 L RDW 16.0 H Plt Count 87 L Seg Neutrophils % 61.6 Lymphocytes % 22.7 Monocytes % 12.8 Eosinophils % 1.7 Basophils % 1.2 Absolute Neutrophils 2.3 Absolute Lymphocytes 0.8 Absolute Monocytes 0.5 Absolute Eosinophils 0.1 Absolute Basophils 0.0 Sodium 141.4 Potassium 5.5 H Chloride 109 H Carbon Dioxide 21 L Anion Gap 11 BUN 79 H Creatinine 3.72 H Est GFR ( Amer) 19 L Est GFR (Non-Af Amer) 15 L Glucose 131 H Lactic Acid 2.0 Calcium 9.5 Magnesium 1.3 L Urine Color Urine Appearance Urine pH Ur Specific [place] Urine Protein Urine Glucose (UA) Urine Ketones Urine Blood Urine Nitrite Urine Bilirubin Urine Urobilinogen Ur Leukocyte Esterase Urine WBC (Auto) Urine RBC (Auto) U Hyaline Cast (Auto) Squamous Epi Cells Auto Urine Mucus (Auto) Urine Ascorbic Acid 01/07/19 01/07/19 10:25 15:35 WBC RBC Hgb Hct MCV MCH MCHC RDW Plt Count Seg Neutrophils % Lymphocytes % Monocytes % Eosinophils % Basophils % Absolute Neutrophils Absolute Lymphocytes Absolute Monocytes Absolute Eosinophils Absolute Basophils Sodium 139.8 Potassium 5.3 H Chloride 108 H Carbon Dioxide 20 L Anion Gap 12 BUN 73 H Creatinine 3.22 H Est GFR ( Amer) 22 L Est GFR (Non-Af Amer) 18 L Glucose 151 H Lactic Acid Calcium 9.4 Magnesium Urine Color YELLOW Urine Appearance SLIGHTLY-CLOUDY Urine pH 5.0 Ur Specific [place] 1.009 Urine Protein NEGATIVE Urine Glucose (UA) NEGATIVE Urine Ketones NEGATIVE Urine Blood NEGATIVE Urine Nitrite NEGATIVE Urine Bilirubin NEGATIVE Urine Urobilinogen NEGATIVE Ur Leukocyte Esterase NEGATIVE Urine WBC (Auto) 1 Urine RBC (Auto) 0 U Hyaline Cast (Auto) 28 Squamous Epi Cells Auto 16 Urine Mucus (Auto) OCC Urine Ascorbic Acid NEGATIVE Chest X-Ray 01/07/19 08:36 IMPRESSION: NO ACUTE RADIOGRAPHIC FINDING IN THE CHEST. Head CT 01/07/19 08:36 IMPRESSION: No acute findings EVIDENCE OF ACUTE STROKE: NO.
[2019-01-07] MEDS: ATORVASTATIN CALCIUM 10 MG TABLET PO SCH (23:12)
[2019-01-07] MEDS: FAMOTIDINE INJ/PF 20 MG/2 ML SDV IV SCH (23:12)
[2019-01-08] MEDS: PIPERACILLIN SODIUM/TAZOBACTAM 2.25 GM in NORMAL SALINE 50 ML IV SCH ×4 (05:29→23:09)
[2019-01-08] MEDS: LEVOTHYROXINE SODIUM 0.1 MG TABLET PO SCH (05:30)
[2019-01-08] MEDS: DEXTROSE 5%-1/2 NORMAL SALINE 1,000 ML IV PRN (06:02)
[2019-01-08 07:45] LABS: ABSOLUTE BASOPHILS # (AUTO) 0.1 10^3/uL (0.0-0.2); ABSOLUTE EOSINOPHILS # (AUTO) 0.1 10^3/uL (0.0-0.6); ABSOLUTE LYMPHOCYTES (AUTO) 1.1 10^3/uL (0.5-4.7); ABSOLUTE MONOCYTES (AUTO) 0.6 10^3/uL (0.1-1.4); ABSOLUTE NEUT (AUTO) 2.4 10^3/uL (1.7-8.2); BASOPHILS % (AUTO) 1.2 % (0-2); EOSINOPHILS % (AUTO) 2.7 % (0-6); HEMOGLOBIN 10.8 g/dL (13.5-17.0); LYMPHOCYTES % (AUTO) 25.5 % (13-45); MEAN CORPUSCULAR HEMOGLOBIN 33.1 pg (27.0-33.4); MEAN CORPUSCULAR HGB CONC 32.6 g/dL (32.0-36.0); MEAN CORPUSCULAR VOLUME 102 fl (80-97); MONOCYTES % (AUTO) 13.5 % (3-13); RED BLOOD COUNT 3.25 10^6/uL (4.35-5.55); RED CELL DISTRIBUTION WIDTH 15.7 % (11.5-14.0); SEGMENTED NEUTROPHILS % (AUTO) 57.1 % (42-78); TOTAL CELLS COUNTED % (AUTO) 100 %; WHITE BLOOD COUNT 4.2 10^3/uL (4.0-10.5)
[2019-01-08 08:07] LABS: ALANINE AMINOTRANSFERASE 39 U/L (21-72); ALBUMIN 3.3 g/dL (3.5-5.0); ALKALINE PHOSPHATASE 74 U/L (38-126); ANION GAP 14 (5-19); ASPARTATE AMINO TRANSFERASE 51 U/L (17-59); BILIRUBIN,DIRECT 0.7 mg/dL (0.0-0.4); BILIRUBIN,TOTAL 1.1 mg/dL (0.2-1.3); BLOOD UREA NITROGEN 62 mg/dL (7-20); CALCIUM 9.7 mg/dL (8.4-10.2); CARBON DIOXIDE 20 mmol/L (22-30); CHLORIDE 107 mmol/L (98-107); GLUCOSE 89 mg/dL (75-110); POTASSIUM 5.1 mmol/L (3.6-5.0); TOTAL PROTEIN 6.3 g/dL (6.3-8.2)
[2019-01-08 08:19] LABS: PLATELET COUNT 79 10^3/uL (150-450)
--- NOTE | 2019-01-08 09:04 | PDOC PROGRESS REPORT ---
Subjective Progress Note for:: 01/08/19 Subjective:: Patient is feeling much better Denied any chest pain denied any shortness of the breath Patient's denied any weakness Reason For Visit: HYPOTENSION Physical Exam Vital Signs: Temp Pulse Resp BP Pulse Ox 97.7 F 103 H 21 H 95/61 L 98 01/08/19 03:54 01/08/19 03:54 01/08/19 03:54 01/08/19 03:54 01/08/19 03:54 Intake & Output 01/07/19 01/08/19 01/09/19 06:59 06:59 06:59 Intake Total 4050 Output Total 1087 Balance 2963 Weight 66.3 kg General appearance: PRESENT: no acute distress, well-developed, well-nourished Head exam: PRESENT: atraumatic, normocephalic Eye exam: PRESENT: conjunctiva pink, EOMI, PERRLA. ABSENT: scleral icterus Ear exam: PRESENT: normal external ear exam Mouth exam: PRESENT: moist, tongue midline Neck exam: PRESENT: full ROM. ABSENT: carotid bruit, JVD, lymphadenopathy, thyromegaly Respiratory exam: PRESENT: clear to auscultation rama Cardiovascular exam: PRESENT: RRR. ABSENT: diastolic murmur, rubs, systolic murmur Vascular exam: PRESENT: normal capillary refill GI/Abdominal exam: PRESENT: normal bowel sounds, soft. ABSENT: distended, guarding, mass, organolmegaly, rebound, tenderness Rectal exam: PRESENT: deferred Extremities exam: ABSENT: pedal edema Neurological exam: PRESENT: alert, awake, oriented to person, oriented to place, oriented to time, oriented to situation, CN II-XII grossly intact. ABSENT: motor sensory deficit Psychiatric exam: PRESENT: appropriate affect, normal mood. ABSENT: homicidal ideation, suicidal ideation Skin exam: PRESENT: dry, intact, warm. ABSENT: cyanosis, rash Results Laboratory Results: 01/08/19 06:11 01/08/19 06:11 01/07/19 01/07/19 01/07/19 09:00 09:00 09:29 WBC 3.7 L RBC 3.22 L Hgb 10.6 L Hct 33.4 L MCV 104 H MCH 33.0 MCHC 31.8 L RDW 16.0 H Plt Count 87 L Seg Neutrophils % 61.6 Lymphocytes % 22.7 Monocytes % 12.8 Eosinophils % 1.7 Basophils % 1.2 Absolute Neutrophils 2.3 Absolute Lymphocytes 0.8 Absolute Monocytes 0.5 Absolute Eosinophils 0.1 Absolute Basophils 0.0 Sodium 141.4 Potassium 5.5 H Chloride 109 H Carbon Dioxide 21 L Anion Gap 11 BUN 79 H Creatinine 3.72 H Est GFR ( Amer) 19 L Est GFR (Non-Af Amer) 15 L Glucose 131 H Lactic Acid 2.0 Calcium 9.5 Magnesium 1.3 L Total Bilirubin AST ALT Alkaline Phosphatase Total Protein Albumin Urine Color Urine Appearance Urine pH Ur Specific [place] Urine Protein Urine Glucose (UA) Urine Ketones Urine Blood Urine Nitrite Ur Leukocyte Esterase Urine WBC (Auto) Urine RBC (Auto) 01/07/19 01/07/19 01/08/19 10:25 15:35 06:11 WBC 4.2 RBC 3.25 L Hgb 10.8 L Hct 33.0 L MCV 102 H MCH 33.1 MCHC 32.6 RDW 15.7 H Plt Count 79 L Seg Neutrophils % 57.1 Lymphocytes % 25.5 Monocytes % 13.5 H Eosinophils % 2.7 Basophils % 1.2 Absolute Neutrophils 2.4 Absolute Lymphocytes 1.1 Absolute Monocytes 0.6 Absolute Eosinophils 0.1 Absolute Basophils 0.1 Sodium 139.8 Potassium 5.3 H Chloride 108 H Carbon Dioxide 20 L Anion Gap 12 BUN 73 H Creatinine 3.22 H Est GFR ( Amer) 22 L Est GFR (Non-Af Amer) 18 L Glucose 151 H Lactic Acid Calcium 9.4 Magnesium Total Bilirubin AST ALT Alkaline Phosphatase Total Protein Albumin Urine Color YELLOW Urine Appearance SLIGHTLY-CLOUDY Urine pH 5.0 Ur Specific [place] 1.009 Urine Protein NEGATIVE Urine Glucose (UA) NEGATIVE Urine Ketones NEGATIVE Urine Blood NEGATIVE Urine Nitrite NEGATIVE Ur Leukocyte Esterase NEGATIVE Urine WBC (Auto) 1 Urine RBC (Auto) 0 01/08/19 06:11 WBC RBC Hgb Hct MCV MCH MCHC RDW Plt Count Seg Neutrophils % Lymphocytes % Monocytes % Eosinophils % Basophils % Absolute Neutrophils Absolute Lymphocytes Absolute Monocytes Absolute Eosinophils Absolute Basophils Sodium 141.0 Potassium 5.1 H Chloride 107 Carbon Dioxide 20 L Anion Gap 14 BUN 62 H Creatinine 2.86 H Est GFR ( Amer) 25 L Est GFR (Non-Af Amer) 21 L Glucose 89 Lactic Acid Calcium 9.7 Magnesium 1.4 L Total Bilirubin 1.1 AST 51 ALT 39 Alkaline Phosphatase 74 Total Protein 6.3 Albumin 3.3 L Urine Color Urine Appearance Urine pH Ur Specific [place] Urine Protein Urine Glucose (UA) Urine Ketones Urine Blood Urine Nitrite Ur Leukocyte Esterase Urine WBC (Auto) Urine RBC (Auto) 01/08/19 06:11 NT-Pro-B Natriuret Pep [id number] H Impressions: Chest X-Ray 01/07/19 08:36 IMPRESSION: NO ACUTE RADIOGRAPHIC FINDING IN THE CHEST. Head CT 01/07/19 08:36 IMPRESSION: No acute findings EVIDENCE OF ACUTE STROKE: NO. 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 Qualifiers: Heart failure chronicity: chronic Qualified Code(s): I50.42 - Chronic combined systolic (congestive) and diastolic (congestive) heart failure Is this a current diagnosis for this admission?: Yes Plan: Continues to hold the Lasix continues close monitor (4) Hypertension Qualifiers: Hypertension type: unspecified Qualified Code(s): I10 - Essential (primary) hypertension Is this a current diagnosis for this admission?: Yes (5) Dementia Qualifiers: Dementia type: unspecified type Dementia behavioral disturbance: without behavioral disturbance Qualified Code(s): F03.90 - Unspecified dementia without behavioral disturbance Is this a current diagnosis for this admission?: Yes (6) Pacemaker Is this a current diagnosis for this admission?: Yes (7) Prostatic hyperplasia Is this a current diagnosis for this admission?: Yes - Time Time Spent with patient: 15-24 minutes Medications reviewed and adjusted accordingly: Yes Anticipated discharge: SNF Within: within 48 hours - Plan Summary Plan Summary: Get the physical therapy evaluations today
[2019-01-08] MEDS: DOCUSATE SODIUM 100 MG CAPSULE PO SCH ×2 (10:44→17:27)
[2019-01-08] MEDS: DUTASTERIDE 0.5 MG CAPSULE PO SCH (10:44)
[2019-01-08] MEDS: ACETAMINOPHEN 325 MG TABLET PO PRN (10:47)
[2019-01-08] MEDS ORDERED: NORMAL SALINE 250 ML IV ONE (11:30)
[2019-01-08] MEDS ORDERED: MIDODRINE HCL 5 MG TABLET PO ONE (12:00)
--- NOTE | 2019-01-08 16:54 | PDOC CONSULTATION ---
Consultation Consult Date: 01/08/19 Consult reason:: CASANDRA History of Present Illness Admission Date/PCP: 01/07/19 12:13 MAL LYNCH MD History of Present Illness: ITZEL MA is a 88 year old male with a history of the combined congestive heart failure with EF is only 20%, currently followed by Dr. 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 Lynch, hypertension, hyperlipidemia, dementia and multiple other comorbidity. He was brought to the emergency department because he was found to be lethargic for 3 days prior to admission. He was not eating or drinking much. In the ER the patient's blood pressure found to be around 50 syst olic, he was given IV fluid. Blood work showed a creatinine of 3.7 with a BUN in the 70s. CT of the head did not show any abnormalities. On admission blood cultures and a urine culture were done. He was placed on a broad spectrum antibiotic. Continued to receive 1/2 NS with D5 until later today. Bp was in the 70s systolic for which he was given a bolus of a whole bag of 1/2 NS. BP came up to the 90s systolic. Patient denied chest pain, SOB, N/V/D/C. Patient did not seem to be a reliable historian. Past Medical History Cardiac Medical History: Reports: Coronary Artery Disease, Hyperlipidemia Denies: Myocardial Infarction Pulmonary Medical History: Denies: Asthma Neurological Medical History: Denies: Seizures Renal/ Medical History: Reports: Chronic Kidney Disease Stage III, Chronic Kidney Disease Stage IV GI Medical History: Reports: Gastroesophageal Reflux Disease Denies: Hepatitis, Hiatal Hernia Musculoskeltal Medical History: Reports: Arthritis - osteo Past Surgical History Past Surgical History: Reports: Pacemaker Social History Smoking Status: Never Smoker Frequency of Alcohol Use: None Hx Recreational Drug Use: No Drugs: None - Advance Directive Resuscitation Status: Do Not Resuscitate Family History Parental Family History Reviewed: No - patient was not a reliable source Children Family History Reviewed: Unknown Sibling(s) Family History Reviewed.: Unknown Medication/Allergy Home Medications: Allopurinol [Zyloprim 300 mg Tablet] 300 mg PO DAILY 01/07/19 Carvedilol [Coreg 3.125 mg Tablet] 3.125 mg PO Q12 01/07/19 Colchicine [Colcrys 0.6 mg Tablet] 0.6 mg PO DAILYP PRN 01/07/19 Docusate Sodium [Colace 100 mg Capsule] 100 mg PO DAILY 01/07/19 Dutasteride [Avodart Lf 0.5 mg Capsule] 0.5 mg PO DAILY 01/07/19 Ferrous Sulfate [Feosol 325 mg Tablet] 325 mg PO DAILY 01/07/19 Furosemide [Lasix 20 mg Tablet] 20 mg PO QPM 01/07/19 Furosemide [Lasix 20 mg Tablet] 40 mg PO QAM 01/07/19 Levothyroxine Sodium [Synthroid 0.1 mg Tablet] 0.1 mg PO Q6AM 01/07/19 Paricalcitol [Zemplar 1 Mcg Capsule] 1 mcg PO MOWEFR@1000 01/07/19 Potassium Chloride [Klor-Con M20] 20 meq PO DAILY 01/07/19 Pravastatin Sodium [Pravachol] 40 mg PO QHS 01/07/19 Allergies/Adverse Reactions: pseudoephedrine HCl [From Sudafed] Allergy (Severe, Verified 01/07/19 09:09) SWELLING amlodipine besylate [From Lotrel] Allergy (Unknown, Verified 01/07/19 09:09) benazepril HCl [From Lotrel] Allergy (Unknown, Verified 01/07/19 09:09) Review of Systems ROS unobtainable: Due to mental status Constitutional: PRESENT: weakness. ABSENT: chills, fever(s) Eyes: ABSENT: visual disturbances Cardiovascular: ABSENT: chest pain, dyspnea on exertion, edema, orthropnea, palpitations Respiratory: ABSENT: cough, dyspnea, sputum Gastrointestinal: ABSENT: abdominal pain, constipation, diarrhea, nausea, vomiting Genitourinary: ABSENT: difficulty urinating, dysuria, nocturia Musculoskeletal: ABSENT: muscle weakness Neurological: PRESENT: confusion, dizziness, weakness. ABSENT: focal weakness, numbness Physical Exam Vital Signs: Temp Pulse Resp BP Pulse Ox 97.4 F 39 L 18 92/64 L 88 L 01/08/19 10:56 01/08/19 10:56 01/08/19 08:42 01/08/19 11:12 01/08/19 10:56 Intake & Output 01/07/19 01/08/19 01/09/19 06:59 06:59 06:59 Intake Total 4050 600 Output Total 1087 Balance 2963 600 Weight 66.3 kg General appearance: PRESENT: no acute distress, cooperative. ABSENT: well- nourished Eye exam: ABSENT: PERRLA, scleral icterus Mouth exam: PRESENT: dry mucosa. ABSENT: moist, neck supple Neck exam: ABSENT: JVD, tracheal deviation Respiratory exam: PRESENT: crackles - -course. ABSENT: clear to auscultation rama, rales, rhonchi, wheezes Cardiovascular exam: PRESENT: RRR, +S1, +S2 GI/Abdominal exam: PRESENT: soft. ABSENT: tenderness Extremities exam: ABSENT: pedal edema, tenderness, +1 edema, +2 edema Musculoskeletal exam: PRESENT: normal inspection. ABSENT: tenderness Neurological exam: PRESENT: alert, oriented to place, oriented to time, oriented to situation. ABSENT: oriented to person Psychiatric exam: PRESENT: appropriate affect, normal mood. ABSENT: anxious, depressed Skin exam: PRESENT: dry, intact, warm Results Laboratory Results: 01/08/19 06:11 01/08/19 06:11 01/08/19 01/08/19 06:11 06:11 WBC 4.2 RBC 3.25 L Hgb 10.8 L Hct 33.0 L MCV 102 H MCH 33.1 MCHC 32.6 RDW 15.7 H Plt Count 79 L Seg Neutrophils % 57.1 Lymphocytes % 25.5 Monocytes % 13.5 H Eosinophils % 2.7 Basophils % 1.2 Absolute Neutrophils 2.4 Absolute Lymphocytes 1.1 Absolute Monocytes 0.6 Absolute Eosinophils 0.1 Absolute Basophils 0.1 Sodium 141.0 Potassium 5.1 H Chloride 107 Carbon Dioxide 20 L Anion Gap 14 BUN 62 H Creatinine 2.86 H Est GFR ( Amer) 25 L Est GFR (Non-Af Amer) 21 L Glucose 89 Calcium 9.7 Magnesium 1.4 L Total Bilirubin 1.1 AST 51 ALT 39 Alkaline Phosphatase 74 Total Protein 6.3 Albumin 3.3 L 01/07/19 10:25 Clean Catch Midstream Urine Culture - Final Mixed Urogenital Angela 01/08/19 06:11 NT-Pro-B Natriuret Pep [id number] H Impressions: Chest X-Ray 01/07/19 08:36 IMPRESSION: NO ACUTE RADIOGRAPHIC FINDING IN THE CHEST. Head CT 01/07/19 08:36 IMPRESSION: No acute findings EVIDENCE OF ACUTE STROKE: NO. Assessment & Plan - Diagnosis (1) Acute renal failure Qualifiers: Acute renal failure type: unspecified Qualified Code(s): N17.9 - Acute kidney failure, unspecified Is this a current diagnosis for this admission?: Yes Plan: Nonoliguric, due to dehydration and hypotension caused by dehydration. Looks to be improving from the kidney function standpoint. BP is still low, will look to start NS at 75mL an hour re-evaluate tomorrow. No signs of fluid overload. (2) Hypotension Qualifiers: Hypotension type: unspecified hypotension type Qualified Code(s): I95.9 - Hypotension, unspecified Is this a current diagnosis for this admission?: Yes Plan: currently holding bp medications and starting NS at 75mL an hour. Looks to be due to dehydration. No signs currently of an infection. (3) Hypertension Qualifiers: Hypertension type: unspecified Qualified Code(s): I10 - Essential (primary) hypertension Is this a current diagnosis for this admission?: Yes Plan: currently holding bp medications and starting NS at 75mL an hour. (4) Combined congestive systolic and diastolic heart failure Qualifiers: Heart failure chronicity: chronic Qualified Code(s): I50.42 - Chronic combi laureano systolic (congestive) and diastolic (congestive) heart failure Is this a current diagnosis for this admission?: Yes Plan: currently stable, furosemide is on hold due to dehydration (5) Pacemaker Is this a current diagnosis for this admission?: Yes Plan: per cardiology (6) Dementia Qualifiers: Dementia type: unspecified type Dementia behavioral disturbance: without behavioral disturbance Qualified Code(s): F03.90 - Unspecified dementia without behavioral disturbance Is this a current diagnosis for this admission?: Yes Plan: per primary (7) Hypomagnesemia Plan: will look infuse 1g of magnesium and re-evaluate tomorrow.
[2019-01-08] MEDS: NORMAL SALINE 1000 ML 1,000 ML IV PRN (17:18)
[2019-01-08] MEDS ORDERED: MAGNESIUM SULFATE/D5W 1 GM/100 ML RTUPB IV ONE (17:30)
[2019-01-08] MEDS: FAMOTIDINE INJ/PF 20 MG/2 ML SDV IV SCH (21:10)
[2019-01-08] MEDS: ATORVASTATIN CALCIUM 10 MG TABLET PO SCH (21:10)
[2019-01-09] MEDS: LEVOTHYROXINE SODIUM 0.1 MG TABLET PO SCH (05:07)
[2019-01-09] MEDS: PIPERACILLIN SODIUM/TAZOBACTAM 2.25 GM in NORMAL SALINE 50 ML IV SCH ×4 (05:07→23:27)
[2019-01-09 07:42] LABS: ALANINE AMINOTRANSFERASE 41 U/L (21-72); ALBUMIN 3.1 g/dL (3.5-5.0); ALKALINE PHOSPHATASE 72 U/L (38-126); ANION GAP 11 (5-19); ASPARTATE AMINO TRANSFERASE 42 U/L (17-59); BILIRUBIN,DIRECT 0.7 mg/dL (0.0-0.4); BILIRUBIN,TOTAL 1.1 mg/dL (0.2-1.3); BLOOD UREA NITROGEN 50 mg/dL (7-20); CALCIUM 9.4 mg/dL (8.4-10.2); CARBON DIOXIDE 21 mmol/L (22-30); CHLORIDE 107 mmol/L (98-107); GLUCOSE 87 mg/dL (75-110); POTASSIUM 4.4 mmol/L (3.6-5.0); SODIUM 139.3 mmol/L (137-145); TOTAL PROTEIN 5.7 g/dL (6.3-8.2)
[2019-01-09 08:17] LABS: ABSOLUTE EOSINOPHILS # (AUTO) 0.1 10^3/uL (0.0-0.6); ABSOLUTE LYMPHOCYTES (AUTO) 1.2 10^3/uL (0.5-4.7); ABSOLUTE MONOCYTES (AUTO) 0.4 10^3/uL (0.1-1.4); BASOPHILS % (AUTO) 0.8 % (0-2); EOSINOPHILS % (AUTO) 2.8 % (0-6); HEMATOCRIT 33.2 % (37.9-51.0); HEMOGLOBIN 10.8 g/dL (13.5-17.0); LYMPHOCYTES % (AUTO) 31.5 % (13-45); MEAN CORPUSCULAR HEMOGLOBIN 33.2 pg (27.0-33.4); MEAN CORPUSCULAR HGB CONC 32.3 g/dL (32.0-36.0); MEAN CORPUSCULAR VOLUME 103 fl (80-97); MONOCYTES % (AUTO) 11.6 % (3-13); PLATELET COUNT 81 10^3/uL (150-450); RED BLOOD COUNT 3.24 10^6/uL (4.35-5.55); RED CELL DISTRIBUTION WIDTH 16.3 % (11.5-14.0); SEGMENTED NEUTROPHILS % (AUTO) 53.3 % (42-78); TOTAL CELLS COUNTED % (AUTO) 100 %; WHITE BLOOD COUNT 3.7 10^3/uL (4.0-10.5)
--- NOTE | 2019-01-09 09:24 | PDOC PROGRESS REPORT ---
Subjective Progress Note for:: 01/09/19 Subjective:: Patient is currently doing well Patient is denied any chest pain denied any shortness of the breath No fever no chills Patient blood pressure is still low seen by the nephrology change the IV fluid patient was giving the Midrin yesterday by the nc manager but still not much difference Patient is asymptomatic actually feel better Patient's platelet count is running lower and Reason For Visit: HYPOTENSION Physical Exam Vital Signs: Temp Pulse Resp BP Pulse Ox 97.2 F 98 24 H 86/54 L 97 01/09/19 03:05 01/09/19 07:05 01/09/19 03:05 01/09/19 03:05 01/09/19 03:05 Intake & Output 01/08/19 01/09/19 01/10/19 06:59 06:59 06:59 Intake Total 4050 1374 Output Total 1087 1400 Balance 2963 -26 Weight 66.3 kg 67.8 kg General appearance: PRESENT: no acute distress, well-developed, well-nourished Head exam: PRESENT: atraumatic, normocephalic Eye exam: PRESENT: conjunctiva pink, EOMI, PERRLA. ABSENT: scleral icterus Ear exam: PRESENT: normal external ear exam Mouth exam: PRESENT: moist, tongue midline Neck exam: PRESENT: full ROM. ABSENT: carotid bruit, JVD, lymphadenopathy, th yromegaly Respiratory exam: PRESENT: clear to auscultation rama Cardiovascular exam: PRESENT: RRR. ABSENT: diastolic murmur, rubs, systolic murmur Vascular exam: PRESENT: normal capillary refill GI/Abdominal exam: PRESENT: normal bowel sounds, soft. ABSENT: distended, guarding, mass, organolmegaly, rebound, tenderness Rectal exam: PRESENT: deferred Extremities exam: ABSENT: pedal edema Neurological exam: PRESENT: alert, awake, oriented to person, oriented to place, oriented to time, oriented to situation, CN II-XII grossly intact. ABSENT: motor sensory deficit Psychiatric exam: PRESENT: appropriate affect, normal mood. ABSENT: homicidal ideation, suicidal ideation Skin exam: PRESENT: dry, intact, warm. ABSENT: cyanosis, rash Results Laboratory Results: 01/09/19 07:06 01/09/19 07:06 01/09/19 01/09/19 07:06 07:06 WBC 3.7 L RBC 3.24 L Hgb 10.8 L Hct 33.2 L MCV 103 H MCH 33.2 MCHC 32.3 RDW 16.3 H Plt Count 81 L Seg Neutrophils % 53.3 Lymphocytes % 31.5 Monocytes % 11.6 Eosinophils % 2.8 Basophils % 0.8 Absolute Neutrophils 2.0 Absolute Lymphocytes 1.2 Absolute Monocytes 0.4 Absolute Eosinophils 0.1 Absolute Basophils 0.0 Sodium 139.3 Potassium 4.4 Chloride 107 Carbon Dioxide 21 L Anion Gap 11 BUN 50 H Creatinine 2.30 H Est GFR ( Amer) 33 L Est GFR (Non-Af Amer) 27 L Glucose 87 Calcium 9.4 Magnesium 1.4 L Total Bilirubin 1.1 AST 42 ALT 41 Alkaline Phosphatase 72 Total Protein 5.7 L Albumin 3.1 L 01/07/19 10:25 Clean Catch Midstream Urine Culture - Final Mixed Urogenital Angela 01/08/19 01/09/19 06:11 07:06 NT-Pro-B Natriuret Pep [id number] H [id number] H Impressions: Chest X-Ray 01/07/19 08:36 IMPRESSION: NO ACUTE RADIOGRAPHIC FINDING IN THE CHEST. Head CT 01/07/19 08:36 IMPRESSION: No acute findings EVIDENCE OF ACUTE STROKE: NO. 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 Qualifiers: Heart failure chronicity: chronic Qualified Code(s): I50.42 - Chronic combined systolic (congestive) and diastolic (congestive) heart failure Is this a current diagnosis for this admission?: Yes Plan: Continues to follow with the cardiology (4) Hypertension Qualifiers: Hypertension type: unspecified Qualified Code(s): I10 - Essential (primary) hypertension Is this a current diagnosis for this admission?: Yes (5) Dementia Qualifiers: Dementia type: unspecified type Dementia behavioral disturbance: without behavioral disturbance Qualified Code(s): F03.90 - Unspecified dementia without behavioral disturbance Is this a current diagnosis for this admission?: Yes (6) Pacemaker Is this a current diagnosis for this admission?: Yes (7) Prostatic hyperplasia Is this a current diagnosis for this admission?: Yes (8) Thrombocytopenia Is this a current diagnosis for this admission?: Yes Plan: We will consult hematology - Time Time Spent with patient: 15-24 minutes Medications reviewed and adjusted accordingly: Yes Anticipated discharge: SNF Within: Other - Plan Summary Plan Summary: current medications
[2019-01-09] MEDS: NORMAL SALINE 1000 ML 1,000 ML IV PRN (09:56)
[2019-01-09] MEDS: ACETAMINOPHEN 325 MG TABLET PO PRN ×2 (09:59→18:02)
[2019-01-09] MEDS: DOCUSATE SODIUM 100 MG CAPSULE PO SCH ×2 (10:00→18:04)
[2019-01-09] MEDS: MIDODRINE HCL 5 MG TABLET PO SCH ×3 (10:00→18:03)
[2019-01-09] MEDS: DUTASTERIDE 0.5 MG CAPSULE PO SCH (10:00)
[2019-01-09] MEDS: FAMOTIDINE 20 MG TABLET PO SCH (21:06)
[2019-01-09] MEDS: ATORVASTATIN CALCIUM 10 MG TABLET PO SCH (21:06)
--- NOTE | 2019-01-09 22:22 | Progress Note ---
Provider Note Provider Note: CARDIOLOGY PROGRESS NOTE by Dr. Arpita Cintron on 01/09/2019.
[2019-01-10] MEDS: NORMAL SALINE 1000 ML 1,000 ML IV PRN (04:10)
[2019-01-10] MEDS: PIPERACILLIN SODIUM/TAZOBACTAM 2.25 GM in NORMAL SALINE 50 ML IV SCH (05:05)
[2019-01-10] MEDS: LEVOTHYROXINE SODIUM 0.1 MG TABLET PO SCH (05:06)
[2019-01-10 07:18] LABS: ABSOLUTE EOSINOPHILS # (AUTO) 0.1 10^3/uL (0.0-0.6); ABSOLUTE LYMPHOCYTES (AUTO) 1.2 10^3/uL (0.5-4.7); ABSOLUTE MONOCYTES (AUTO) 0.5 10^3/uL (0.1-1.4); ABSOLUTE NEUT (AUTO) 2.3 10^3/uL (1.7-8.2); EOSINOPHILS % (AUTO) 1.9 % (0-6); HEMATOCRIT 31.4 % (37.9-51.0); HEMOGLOBIN 10.2 g/dL (13.5-17.0); LYMPHOCYTES % (AUTO) 28.8 % (13-45); MEAN CORPUSCULAR HEMOGLOBIN 33.2 pg (27.0-33.4); MEAN CORPUSCULAR HGB CONC 32.3 g/dL (32.0-36.0); MEAN CORPUSCULAR VOLUME 103 fl (80-97); MONOCYTES % (AUTO) 12.7 % (3-13); RED BLOOD COUNT 3.06 10^6/uL (4.35-5.55); SEGMENTED NEUTROPHILS % (AUTO) 55.6 % (42-78); TOTAL CELLS COUNTED % (AUTO) 100 %; WHITE BLOOD COUNT 4.1 10^3/uL (4.0-10.5)
[2019-01-10 07:36] LABS: ALANINE AMINOTRANSFERASE 36 U/L (21-72); ALKALINE PHOSPHATASE 72 U/L (38-126); ANION GAP 11 (5-19); ASPARTATE AMINO TRANSFERASE 38 U/L (17-59); BILIRUBIN,DIRECT 0.6 mg/dL (0.0-0.4); BILIRUBIN,TOTAL 0.9 mg/dL (0.2-1.3); BLOOD UREA NITROGEN 44 mg/dL (7-20); CALCIUM 9.1 mg/dL (8.4-10.2); CARBON DIOXIDE 20 mmol/L (22-30); CHLORIDE 108 mmol/L (98-107); GLUCOSE 74 mg/dL (75-110); POTASSIUM 4.3 mmol/L (3.6-5.0); SODIUM 139.4 mmol/L (137-145); TOTAL PROTEIN 5.7 g/dL (6.3-8.2)
[2019-01-10 07:47] LABS: PLATELET COUNT 69 10^3/uL (150-450)
[2019-01-10] MEDS: DOCUSATE SODIUM 100 MG CAPSULE PO SCH ×2 (10:05→17:27)
[2019-01-10] MEDS: DUTASTERIDE 0.5 MG CAPSULE PO SCH (10:05)
[2019-01-10] MEDS: MIDODRINE HCL 5 MG TABLET PO SCH ×3 (10:05→17:26)
--- NOTE | 2019-01-10 10:27 | PDOC PROGRESS REPORT ---
Subjective Progress Note for:: 01/10/19 Subjective:: Patient is currently doing fair Patient's denied any chest pain to than any shortness of the breath Patient's blood pressure still running 90 range Patient was put on Midrin yesterday by the cardiology Patient is giving some IV fluid Patient's otherwise denied any other symptoms Reason For Visit: HYPOTENSION Physical Exam Vital Signs: Temp Pulse Resp BP Pulse Ox 97.3 F 99 16 110/38 L 97 01/10/19 08:41 01/10/19 08:41 01/10/19 08:41 01/10/19 08:41 01/10/19 08:41 Intake & Output 01/09/19 01/10/19 01/11/19 06:59 06:59 06:59 Intake Total 2374 1690 Output Total 1400 800 Balance 974 890 Weight 67.8 kg 67.3 kg General appearance: PRESENT: no acute distress, well-developed, well-nourished Head exam: PRESENT: atraumatic, normocephalic Eye exam: PRESENT: conjunctiva pink, EOMI, PERRLA. ABSENT: scleral icterus Ear exam: PRESENT: normal external ear exam Mouth exam: PRESENT: moist, tongue midline Neck exam: PRESENT: full ROM. ABSENT: carotid bruit, JVD, lymphadenopathy, thy romegaly Respiratory exam: PRESENT: clear to auscultation rama Cardiovascular exam: PRESENT: RRR. ABSENT: diastolic murmur, rubs, systolic murmur Vascular exam: PRESENT: normal capillary refill GI/Abdominal exam: PRESENT: normal bowel sounds, soft. ABSENT: distended, guarding, mass, organolmegaly, rebound, tenderness Rectal exam: PRESENT: deferred Neurological exam: PRESENT: alert, awake, oriented to person, oriented to place, oriented to time, oriented to situation, CN II-XII grossly intact. ABSENT: motor sensory deficit Psychiatric exam: PRESENT: appropriate affect, normal mood. ABSENT: homicidal ideation, suicidal ideation Skin exam: PRESENT: dry, intact, warm. ABSENT: cyanosis, rash Results Laboratory Results: 01/10/19 06:28 01/10/19 06:28 01/10/19 01/10/19 06:28 06:28 WBC 4.1 RBC 3.06 L Hgb 10.2 L Hct 31.4 L MCV 103 H MCH 33.2 MCHC 32.3 RDW 16.0 H Plt Count 69 L Seg Neutrophils % 55.6 Lymphocytes % 28.8 Monocytes % 12.7 Eosinophils % 1.9 Basophils % 1.0 Absolute Neutrophils 2.3 Absolute Lymphocytes 1.2 Absolute Monocytes 0.5 Absolute Eosinophils 0.1 Absolute Basophils 0.0 Sodium 139.4 Potassium 4.3 Chloride 108 H Carbon Dioxide 20 L Anion Gap 11 BUN 44 H Creatinine 2.32 H Est GFR ( Amer) 32 L Est GFR (Non-Af Amer) 27 L Glucose 74 L Calcium 9.1 Magnesium 1.4 L Total Bilirubin 0.9 AST 38 ALT 36 Alkaline Phosphatase 72 Total Protein 5.7 L Albumin 3.0 L 01/08/19 01/09/19 01/10/19 06:11 07:06 06:28 NT-Pro-B Natriuret Pep 29290 H [id number] H [id number] H Impressions: Chest X-Ray 01/07/19 08:36 IMPRESSION: NO ACUTE RADIOGRAPHIC FINDING IN THE CHEST. Head CT 01/07/19 08:36 IMPRESSION: No acute findings EVIDENCE OF ACUTE STROKE: NO. 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 Qualifiers: Heart failure chronicity: chronic Qualified Code(s): I50.42 - Chronic combined systolic (congestive) and diastolic (congestive) heart failure Is this a current diagnosis for this admission?: Yes Plan: Continues to follow with the cardiology (4) Hypertension Qualifiers: Hypertension type: unspecified Qualified Code(s): I10 - Essential (primary) hypertension Is this a current diagnosis for this admission?: Yes (5) Dementia Qualifiers: Dementia type: unspecified type Dementia behavioral disturbance: without b ehavioral disturbance Qualified Code(s): F03.90 - Unspecified dementia without behavioral disturbance Is this a current diagnosis for this admission?: Yes (6) Pacemaker Is this a current diagnosis for this admission?: Yes (7) Prostatic hyperplasia Is this a current diagnosis for this admission?: Yes (8) Thrombocytopenia Is this a current diagnosis for this admission?: Yes Plan: We will continues to monitor may be need hematology consults if is going down - Time Time Spent with patient: 15-24 minutes Medications reviewed and adjusted accordingly: Yes Anticipated discharge: SNF Within: Other - Plan Summary Plan Summary: As per discussed with other store sales consultant patient's prognosis is poor Patient is currently DNR/DNI
[2019-01-10] MEDS ORDERED: NORMAL SALINE 1000 ML 1,000 ML IV PRN (14:50)
--- NOTE | 2019-01-10 14:56 | PDOC PROGRESS REPORT ---
Subjective Progress Note for:: 01/10/19 Subjective:: Patient was seen today sitting comfortably in his bed. He claimed to be feeling better. Appetite was also improving. Denied chest pain, SOB ,N/V/D/C. Reason For Visit: HYPOTENSION Physical Exam Vital Signs: Temp Pulse Resp BP Pulse Ox 97.6 F 96 16 129/94 H 100 01/10/19 11:46 01/10/19 11:46 01/10/19 11:46 01/10/19 11:46 01/10/19 11:46 Intake & Output 01/09/19 01/10/19 01/11/19 06:59 06:59 06:59 Intake Total 2374 1690 Output Total 1400 800 Balance 974 890 Weight 67.8 kg 67.3 kg General appearance: PRESENT: no acute distress, well-developed, well-nourished Mouth exam: PRESENT: moist, neck supple Neck exam: ABSENT: JVD, tracheal deviation Respiratory exam: PRESENT: clear to auscultation rama. ABSENT: crackles, rales, rhonchi, wheezes Cardiovascular exam: PRESENT: RRR, +S1, +S2 GI/Abdominal exam: PRESENT: soft. ABSENT: tenderness Extremities exam: ABSENT: tenderness, +1 edema, +2 edema Musculoskeletal exam: PRESENT: normal inspection. ABSENT: tenderness Neurological exam: PRESENT: alert, awake, oriented to person, oriented to place, oriented to time, oriented to situation Skin exam: PRESENT: dry, intact, warm Results Laboratory Results: 01/10/19 06:28 01/10/19 06:28 01/10/19 01/10/19 01/10/19 06:28 06:28 12:40 WBC 4.1 RBC 3.06 L Hgb 10.2 L Hct 31.4 L MCV 103 H MCH 33.2 MCHC 32.3 RDW 16.0 H Plt Count 69 L Seg Neutrophils % 55.6 Lymphocytes % 28.8 Monocytes % 12.7 Eosinophils % 1.9 Basophils % 1.0 Absolute Neutrophils 2.3 Absolute Lymphocytes 1.2 Absolute Monocytes 0.5 Absolute Eosinophils 0.1 Absolute Basophils 0.0 Sodium 139.4 Potassium 4.3 Chloride 108 H Carbon Dioxide 20 L Anion Gap 11 BUN 44 H Creatinine 2.32 H Est GFR ( Amer) 32 L Est GFR (Non-Af Amer) 27 L Glucose 74 L Calcium 9.1 Magnesium 1.4 L Total Bilirubin 0.9 AST 38 ALT 36 Alkaline Phosphatase 72 Total Protein 5.7 L Albumin 3.0 L Stool Occult Blood NEGATIVE 01/08/19 01/09/19 01/10/19 06:11 07:06 06:28 NT-Pro-B Natriuret Pep 18397 H 98500 H 55518 H Impressions: Chest X-Ray 01/07/19 08:36 IMPRESSION: NO ACUTE RADIOGRAPHIC FINDING IN THE CHEST. Head CT 01/07/19 08:36 IMPRESSION: No acute findings EVIDENCE OF ACUTE STROKE: NO. Assessment & Plan - Diagnosis (1) Acute renal failure Qualifiers: Acute renal failure type: unspecified Qualified Code(s): N17.9 - Acute kidney failure, unspecified Is this a current diagnosis for this admission?: Yes Plan: continue with NS at 60mL an hour, currently he is not drinking much. Almost at baseline (2) Hypotension Qualifiers: Hypotension type: unspecified hypotension type Qualified Code(s): I95.9 - Hypotension, unspecified Is this a current diagnosis for this admission?: Yes Plan: improved with midodrine and NS. 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 Qualifiers: Heart failure chronicity: chronic Qualified Code(s): I50.42 - Chronic combined systolic (congestive) and diastolic (congestive) heart failure Is this a current diagnosis for this admission?: Yes Plan: currently stable (5) Pacemaker Is this a current diagnosis for this admission?: Yes (6) Dementia Qualifiers: Dementia type: unspecified type Dementia behavioral disturbance: without behavioral disturbance Qualified Code(s): F03.90 - Unspecified dementia without behavioral disturbance Is this a current diagnosis for this admission?: Yes Plan: per primary (7) Hypomagnesemia Plan: On PO magnesium that is maintaining him at 1.4. Will also look to give him 2g of magnesium via IV.
[2019-01-10] MEDS: MAGNESIUM SULFATE/D5W 1 GM/100 ML RTUPB IV SCH ×2 (17:26→18:38)
[2019-01-10] MEDS: FAMOTIDINE 20 MG TABLET PO SCH (21:56)
[2019-01-10] MEDS: ATORVASTATIN CALCIUM 10 MG TABLET PO SCH (21:56)
[2019-01-11] MEDS: LEVOTHYROXINE SODIUM 0.1 MG TABLET PO SCH (06:12)
[2019-01-11] MEDS: MIDODRINE HCL 5 MG TABLET PO SCH ×3 (09:36→18:24)
[2019-01-11] MEDS: DUTASTERIDE 0.5 MG CAPSULE PO SCH (09:36)
[2019-01-11] MEDS: DOCUSATE SODIUM 100 MG CAPSULE PO SCH ×2 (09:37→18:22)
--- NOTE | 2019-01-11 14:19 | PDOC PROGRESS REPORT ---
Subjective Progress Note for:: 01/11/19 Subjective:: Patient denied chest pain or difficulty with breathing. His afternoon Midodrin dose was not given due to sbp at 140mmHg. Reason For Visit: HYPOTENSION Physical Exam Vital Signs: Temp Pulse Resp BP Pulse Ox 97.5 F 99 16 143/50 H 100 01/11/19 11:38 01/11/19 11:38 01/11/19 11:38 01/11/19 11:38 01/11/19 11:38 Intake & Output 01/10/19 01/11/19 01/12/19 06:59 06:59 06:59 Intake Total 1690 1521 354 Output Total 800 800 300 Balance 890 721 54 Weight 67.3 kg 70.3 kg General appearance: PRESENT: no acute distress Head exam: PRESENT: atraumatic, normocephalic Eye exam: PRESENT: conjunctiva pink, scleral icterus Ear exam: PRESENT: normal external ear exam Mouth exam: PRESENT: moist Respiratory exam: PRESENT: clear to auscultation rama Cardiovascular exam: PRESENT: RRR. ABSENT: diastolic murmur, rubs, systolic murmur Vascular exam: ABSENT: pallor GI/Abdominal exam: PRESENT: normal bowel sounds, soft. ABSENT: distended, guarding, mass, organolmegaly, rebound, tenderness Extremities exam: ABSENT: pedal edema Neurological exam: PRESENT: alert, awake Psychiatric exam: PRESENT: appropriate affect, normal mood. ABSENT: homicidal i deation, suicidal ideation Skin exam: PRESENT: dry, warm Results Laboratory Results: 01/10/19 06:28 01/10/19 06:28 01/08/19 01/09/19 01/10/19 06:11 07:06 06:28 NT-Pro-B Natriuret Pep 79417 H 35370 H 62928 H Impressions: Chest X-Ray 01/07/19 08:36 IMPRESSION: NO ACUTE RADIOGRAPHIC FINDING IN THE CHEST. Head CT 01/07/19 08:36 IMPRESSION: No acute findings EVIDENCE OF ACUTE STROKE: NO. Assessment & Plan - Diagnosis (1) Hypotension Qualifiers: Hypotension type: unspecified hypotension type Qualified Code(s): I95.9 - Hypotension, unspecified Is this a current diagnosis for this admission?: Yes Plan: Continue current medication management. (2) Acute renal failure Qualifiers: Acute renal failure type: unspecified Qualified Code(s): N17.9 - Acute kidney failure, unspecified Is this a current diagnosis for this admission?: Yes Plan: Continue current medication management. (3) Combined congestive systolic and diastolic heart failure Qualifiers: Heart failure chronicity: chronic Qualified Code(s): I50.42 - Chronic combined systolic (congestive) and diastolic (congestive) heart failure Is this a current diagnosis for this admission?: Yes Plan: Continue current medication management. (4) Thrombocytopenia Is this a current diagnosis for this admission?: Yes Plan: Continue current medication management. - Time Time Spent with patient: 25-34 minutes Medications reviewed and adjusted accordingly: Yes Anticipated discharge: Home with Homehealth, SNF Within: Other - Inpatient Certification Based on my medical assessment, after consideration of the patient's comorbidities, presenting symptoms, or acuity I expect that the services needed warrant INPATIENT care.: Yes I certify that my determination is in accordance with my understanding of Medicare's requirements for reasonable and necessary INPATIENT services [42 CFR 412.3e].: Yes Medical Necessity: Significant Comorbidiites Make Outpatient Treatment Too Risky, Need Close Monitoring Due to Risk of Patient Decompensation, Need For IV Fluids, Risk of Complication if Not Cared For in Hospital, Risk of Diagnosis Which Will Require Inpatient Eval/Care/Monitoring Post Hospital Care: D/C Structures Engineer Documentation, D/C or Transfer Summary - Plan Summary Plan Summary: Continue current medication management. Obtain CBC with diff, CMP in AM.
[2019-01-11] MEDS: ATORVASTATIN CALCIUM 10 MG TABLET PO SCH (21:15)
[2019-01-11] MEDS: FAMOTIDINE 20 MG TABLET PO SCH (21:15)
[2019-01-12 05:01] LABS: ABSOLUTE LYMPHOCYTES (AUTO) 0.9 10^3/uL (0.5-4.7); ABSOLUTE MONOCYTES (AUTO) 0.5 10^3/uL (0.1-1.4); ABSOLUTE NEUT (AUTO) 3.3 10^3/uL (1.7-8.2); BASOPHILS % (AUTO) 0.8 % (0-2); EOSINOPHILS % (AUTO) 0.7 % (0-6); HEMATOCRIT 30.9 % (37.9-51.0); LYMPHOCYTES % (AUTO) 17.9 % (13-45); MEAN CORPUSCULAR HEMOGLOBIN 32.7 pg (27.0-33.4); MEAN CORPUSCULAR HGB CONC 32.4 g/dL (32.0-36.0); MEAN CORPUSCULAR VOLUME 101 fl (80-97); RED BLOOD COUNT 3.06 10^6/uL (4.35-5.55); RED CELL DISTRIBUTION WIDTH 15.7 % (11.5-14.0); SEGMENTED NEUTROPHILS % (AUTO) 69.6 % (42-78); TOTAL CELLS COUNTED % (AUTO) 100 %; WHITE BLOOD COUNT 4.8 10^3/uL (4.0-10.5)
[2019-01-12] MEDS: LEVOTHYROXINE SODIUM 0.1 MG TABLET PO SCH (05:13)
[2019-01-12 05:22] LABS: PLATELET COUNT 84 10^3/uL (150-450)
[2019-01-12 05:24] LABS: ALANINE AMINOTRANSFERASE 34 U/L (21-72); ALBUMIN 3.2 g/dL (3.5-5.0); ALKALINE PHOSPHATASE 67 U/L (38-126); ANION GAP 15 (5-19); ASPARTATE AMINO TRANSFERASE 38 U/L (17-59); BILIRUBIN,DIRECT 0.6 mg/dL (0.0-0.4); BLOOD UREA NITROGEN 38 mg/dL (7-20); CALCIUM 9.3 mg/dL (8.4-10.2); CARBON DIOXIDE 17 mmol/L (22-30); CHLORIDE 105 mmol/L (98-107); GLUCOSE 102 mg/dL (75-110); POTASSIUM 4.5 mmol/L (3.6-5.0); SODIUM 136.8 mmol/L (137-145); TOTAL PROTEIN 6.1 g/dL (6.3-8.2)
[2019-01-12] MEDS: DOCUSATE SODIUM 100 MG CAPSULE PO SCH ×2 (10:27→18:03)
[2019-01-12] MEDS: MIDODRINE HCL 5 MG TABLET PO SCH ×3 (10:43→18:12)
[2019-01-12] MEDS: DUTASTERIDE 0.5 MG CAPSULE PO SCH (10:43)
--- NOTE | 2019-01-12 19:10 | PDOC PROGRESS REPORT ---
Subjective Progress Note for:: 01/12/19 Subjective:: No chest pain or difficulty with breathing. No fever or chills. No nausea, vomiting or abdominal pain. Nursing staff reported that patient is hardly getting out of bed. Reason For Visit: HYPOTENSION Physical Exam Vital Signs: Temp Pulse Resp BP Pulse Ox 97.3 F 106 H 16 112/82 100 01/12/19 15:53 01/12/19 15:53 01/12/19 15:53 01/12/19 15:53 01/12/19 15:53 Intake & Output 01/11/19 01/12/19 01/13/19 06:59 06:59 06:59 Intake Total 3976 627 5832 Output Total 800 550 225 Balance 279 965 9815 Weight 70.3 kg 70.7 kg Physical Exam: General appearance: PRESENT: no acute distress Head exam: PRESENT: atraumatic, normocephalic Eye exam: PRESENT: conjunctiva pink, scleral icterus ABSENT: pallor Ear exam: PRESENT: normal external ear exam Mouth exam: PRESENT: moist Respiratory exam: PRESENT: clear to auscultation rama Cardiovascular exam: PRESENT: RRR. ABSENT: diastolic murmur, rubs, systolic murmur GI/Abdominal exam: PRESENT: normal bowel sounds, soft. ABSENT: distended, guarding, mass, organomegaly, rebound, tenderness Extremities exam: ABSENT: pedal edema Neurological exam: PRESENT: alert, awake Psychiatric exam: PRESENT: appropriate affect, normal mood. ABSENT: homicidal ideation, suicidal ideation Skin exam: PRESENT: dry, warm Results Laboratory Results: 01/12/19 03:59 01/12/19 03:59 01/12/19 01/12/19 03:59 03:59 WBC 4.8 RBC 3.06 L Hgb 10.0 L Hct 30.9 L MCV 101 H MCH 32.7 MCHC 32.4 RDW 15.7 H Plt Count 84 L Seg Neutrophils % 69.6 Lymphocytes % 17.9 Monocytes % 11.0 Eosinophils % 0.7 Basophils % 0.8 Absolute Neutrophils 3.3 Absolute Lymphocytes 0.9 Absolute Monocytes 0.5 Absolute Eosinophils 0.0 Absolute Basophils 0.0 Sodium 136.8 L Potassium 4.5 Chloride 105 Carbon Dioxide 17 L Anion Gap 15 BUN 38 H Creatinine 1.89 H Est GFR ( Amer) 41 L Est GFR (Non-Af Amer) 34 L Glucose 102 Calcium 9.3 Total Bilirubin 1.0 AST 38 ALT 34 Alkaline Phosphatase 67 Total Protein 6.1 L Albumin 3.2 L 01/07/19 10:46 Blood Blood Culture - Final NO GROWTH IN 5 DAYS 01/07/19 09:29 Blood Blood Culture - Final NO GROWTH IN 5 DAYS 01/08/19 01/09/19 01/10/19 06:11 07:06 06:28 NT-Pro-B Natriuret Pep 17805 H 69827 H 90006 H Impressions: Chest X-Ray 01/07/19 08:36 IMPRESSION: NO ACUTE RADIOGRAPHIC FINDING IN THE CHEST. Head CT 01/07/19 08:36 IMPRESSION: No acute findings EVIDENCE OF ACUTE STROKE: NO. Assessment & Plan - Diagnosis (1) Hypotension Qualifiers: Hypotension type: unspecified hypotension type Qualified Code(s): I95.9 - Hypotension, unspecified Is this a current diagnosis for this admission?: Yes (2) Acute renal failure Qualifiers: Acute renal failure type: unspecified Qualified Code(s): N17.9 - Acute kidney failure, unspecified Is this a current diagnosis for this admission?: Yes (3) Combined congestive systolic and diastolic heart failure Qualifiers: Heart failure chronicity: chronic Qualified Code(s): I50.42 - Chronic combined systolic (congestive) and diastolic (congestive) heart failure Is this a current diagnosis for this admission?: Yes (4) Thrombocytopenia Is this a current diagnosis for this admission?: Yes - Time Time Spent with patient: 25-34 minutes Medications reviewed and adjusted accordingly: Yes Anticipated discharge: Home with Homehealth, SNF Within: Other - Inpatient Certification Based on my medical assessment, after consideration of the patient's comorbidities, presenting symptoms, or acuity I expect that the services needed warrant INPATIENT care.: Yes I certify that my determination is in accordance with my understanding of [facility]'s requirements for reasonable and necessary INPATIENT services [42 CFR 412.3e].: Yes Medical Necessity: Significant Comorbidiites Make Outpatient Treatment Too Risky, Need Close Monitoring Due to Risk of Patient Decompensation, Need For IV Fluids, Need For Continuous Telemetry Monitoring, Risk of Complication if Not Cared For in Hospital, Risk of Diagnosis Which Will Require Inpatient Eval/Care/Monitoring Post Hospital Care: D/C Inside Sales Manager Documentation, D/C or Transfer Summary - Plan Summary Plan Summary: Continue current medication management. Request for PT intervention.
[2019-01-12] MEDS: ATORVASTATIN CALCIUM 10 MG TABLET PO SCH (21:36)
[2019-01-12] MEDS: FAMOTIDINE 20 MG TABLET PO SCH (21:36)
[2019-01-13] MEDS: LEVOTHYROXINE SODIUM 0.1 MG TABLET PO SCH (06:31)
--- NOTE | 2019-01-13 09:15 | PDOC TRANSFER SUMMARY ---
General - Admit/Disc Date/PCP Admission Date/Primary Care Provider: 01/07/19 12:13 MAL LYNCH MD Discharge Date: 01/13/19 - Discharge Diagnosis (1) Hypotension Is this a current diagnosis for this admission?: Yes Summary: Currently all resolving (2) Acute renal failure Is this a current diagnosis for this admission?: Yes Summary: Currently all stable (3) Combined congestive systolic and diastolic heart failure Is this a current diagnosis for this admission?: Yes Summary: Fluid restrictions Currently hold the diuretics Follow with the Dr. Cintron Patient's EF is only 20% Check the weight daily (4) Hypertension Is this a current diagnosis for this admission?: Yes Summary: hold all blood pressure medications (5) Dementia Is this a current diagnosis for this admission?: Yes (6) Pacemaker Is this a current diagnosis for this admission?: Yes (7) Prostatic hyperplasia Is this a current diagnosis for this admission?: Yes (8) Thrombocytopenia Is this a current diagnosis for this admission?: Yes Summary: Repeat the CBC in 1 week If is still low platelet count follow outpatients hematology - Additional Information Resuscitation Status: Do Not Resuscitate Discharge Diet: Cardiac, Other (Comments) - fliud restriction 1500 cc Discharge Activity: Activity As Tolerated Prescriptions: Acetaminophen [Tylenol 325 mg Tablet] 650 mg PO Q4HP PRN #30 tablet PRN Reason: Docusate Sodium [Colace 100 mg Capsule] 100 mg PO BID #60 capsule Famotidine [Pepcid 20 mg Tablet] 20 mg PO QHS #30 tablet Midodrine HCl [Proamatine 5 mg Tablet] 10 mg PO TID #90 tablet Home Medications: Dutasteride [Avodart Lf 0.5 mg Capsule] 0.5 mg PO DAILY 01/07/19 Ferrous Sulfate [Feosol 325 mg Tablet] 325 mg PO DAILY 01/07/19 Furosemide [Lasix 20 mg Tablet] 20 mg PO QPM 01/07/19 Levothyroxine Sodium [Synthroid 0.1 mg Tablet] 0.1 mg PO Q6AM 01/07/19 Paricalcitol [Zemplar 1 Mcg Capsule] 1 mcg PO MOWEFR@1000 01/07/19 Pravastatin Sodium [Pravachol] 40 mg PO QHS 01/07/19 Acetaminophen [Tylenol 325 mg Tablet] 650 mg PO Q4HP PRN #30 tablet 01/13/19 Allopurinol [Zyloprim 300 mg Tablet] 100 mg PO DAILY #0 01/13/19 Docusate Sodium [Colace 100 mg Capsule] 100 mg PO BID #60 capsule 01/13/19 Famotidine [Pepcid 20 mg Tablet] 20 mg PO QHS #30 tablet 01/13/19 Midodrine HCl [Proamatine 5 mg Tablet] 10 mg PO TID #90 tablet 01/13/19 History of Present Illness Admission Date/PCP: 01/07/19 12:13 MAL LYNCH MD History of Present Illness: ITZEL MA is a 88 year old male This is a 88-year-old male with a history of the combined congestive heart failure with EF is only 20% currently see a Dr. 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 Nelson history of the hypertension's hyperlipidemia history of the underlying dementia and multiple other comorbidity brought to the emergency department because of the patient was very lethargic for the last 3 days not eating not drinking much and patient's blood pressure was systolic around 50 patient at this point giving IV fluid and patient had underlying further blood work and a CT scan with source the patient on acute renal failure and hyperkalemia and hypomagnesemia CT head was negative for any acute stroke or any findings Patient at this point most likely from hypovolemic shock due to the de hydration's and acute renal failure Patient's when I saw in the emergency department feeling much better more alert awake oriented patient's blood pressure systolic 120 but diastolic is still running low in the 40 range Patient denied any chest pain denied any shortness of the breath Patient is denied any abdominal pain no nausea no vomiting Patient is complaining of right toe pain No fever no chills Hospital Course Hospital Course: This is a 88-year-old male's with a significant history of the congestive heart failure renal failure dementia came to the emergency department with a very hypotensive's and patient's most likely dehydrated and over diuretics Patients treated with IV fluid and response very well Patient seen by Dr. Cintron the service superintendent and put on middron Seen by Dr. Nelson Patient otherwise doing well Patient's p.o. intake is fair Overall patient's prognosis is not good as per discussed with her testing consultant Discussed with the patient's nephew patient is currently DNR/DNI Patient still very weak Patient is discharged to the rehab facilities Patients follow outpatients cardiology and nephrology make appointment Check a CBC and Chem-7 in 1 week If the patient's platelet count is still low need to follow outpatient hematolog y for further evaluations Physical Exam Vital Signs: Temp Pulse Resp BP Pulse Ox 98.4 F 97 16 133/72 H 99 01/13/19 07:41 01/13/19 07:41 01/13/19 07:41 01/13/19 07:41 01/13/19 07:41 Intake & Output 01/12/19 01/13/19 01/14/19 06:59 06:59 06:59 Intake Total 949 1425 Output Total 550 275 Balance 399 1150 Weight 70.7 kg 71.6 kg General appearance: PRESENT: no acute distress, well-developed, well-nourished Head exam: PRESENT: atraumatic, normocephalic Eye exam: PRESENT: conjunctiva pink, EOMI, PERRLA. ABSENT: scleral icterus Ear exam: PRESENT: normal external ear exam Mouth exam: PRESENT: moist, tongue midline Neck exam: ABSENT: carotid bruit, JVD, lymphadenopathy, thyromegaly Respiratory exam: PRESENT: clear to auscultation rama. ABSENT: rales, rhonchi, wheezes Cardiovascular exam: PRESENT: RRR. ABSENT: diastolic murmur, rubs, systolic murmur Pulses: PRESENT: normal dorsalis pedis pul Vascular exam: PRESENT: normal capillary refill GI/Abdominal exam: PRESENT: normal bowel sounds, soft. ABSENT: distended, guarding, mass, organolmegaly, rebound, tenderness Rectal exam: PRESENT: deferred Extremities exam: PRESENT: full ROM. ABSENT: calf tenderness, clubbing, pedal edema Neurological exam: PRESENT: alert, awake, oriented to person, oriented to place. ABSENT: motor sensory deficit Psychiatric exam: PRESENT: appropriate affect, normal mood. ABSENT: homicidal ideation, suicidal ideation Skin exam: PRESENT: dry, intact, warm. ABSENT: cyanosis, rash Results Laboratory Results: 01/12/19 03:59 01/12/19 03:59 01/07/19 10:46 Blood Blood Culture - Final NO GROWTH IN 5 DAYS 01/07/19 09:29 Blood Blood Culture - Final NO GROWTH IN 5 DAYS 01/08/19 01/09/19 01/10/19 06:11 07:06 06:28 NT-Pro-B Natriuret Pep 00194 H 51461 H 07292 H Impressions: Chest X-Ray 01/07/19 08:36 IMPRESSION: NO ACUTE RADIOGRAPHIC FINDING IN THE CHEST. Head CT 01/07/19 08:36 IMPRESSION: No acute findings EVIDENCE OF ACUTE STROKE: NO. Transfer Plan - Time Spent with Patient Time spent with patient: Greater than 30 Minutes Qualifiers - * PATIENT BEING DISCHARGED WITH ANY OF THE FOLLOWING DIAGNOSIS: No VTE patient discharged on overlapping Therapy?: Yes Acute Heart Failure Is this a Heart Failure Patient?: No Plan Time Spent: Greater than 30 Minutes - Check a CBC and Chem-7 1 week Follow outpatients cardiology and nephrology Check her weight daily If the patient's increasing any swelling any short of breath slowly start the diuretics
[2019-01-13] MEDS: DOCUSATE SODIUM 100 MG CAPSULE PO SCH ×2 (09:38→19:05)
[2019-01-13] MEDS: DUTASTERIDE 0.5 MG CAPSULE PO SCH (09:39)
[2019-01-13] MEDS: MIDODRINE HCL 5 MG TABLET PO SCH ×3 (09:39→19:04)
--- NOTE | 2019-01-13 14:38 | PDOC PROGRESS REPORT ---
Subjective Progress Note for:: 01/13/19 Subjective:: Patient is an 88-year-old gentleman known to me with history of chronic kidney disease who was admitted last week due to generalized weakness associated with hypotension. Patient was started on midodrine and blood pressure is now improving. However the patient said he still feels weak and has no appetite. He denies any chest pains no shortness of breath. He is making a decent amount of urine output anywhere between 500 to 800 mL a day. His kidney function is is slowly improving with improvement of the blood pressure. Since patient lives alone Dr. Barton is working on having him being admitted at the rehab center for more physical therapy while recuperating. Reason For Visit: HYPOTENSION Physical Exam Vital Signs: Temp Pulse Resp BP Pulse Ox 98.1 F 69 16 102/70 96 01/13/19 11:15 01/13/19 11:15 01/13/19 11:15 01/13/19 11:15 01/13/19 11:15 Intake & Output 01/12/19 01/13/19 01/14/19 06:59 06:59 06:59 Intake Total 949 1425 Output Total 550 275 Balance 399 1150 Weight 70.7 kg 71.6 kg Exam: General appearance: PRESENT: no acute distress, cooperative, well-developed, well-nourished Head exam: PRESENT: atraumatic, normocephalic Eye exam: PRESENT: conjunctiva slightly pale, PERRLA. ABSENT: scleral icterus Neck exam: ABSENT: JVD Respiratory exam: PRESENT: Diminished breath sounds. ABSENT: crackles, rales, rhonchi, unlabored, wheezes Cardiovascular exam: PRESENT: Regular rate rhythm -+S1, +S2. Soft grade 2/6 systolic murmur GI/Abdominal exam: PRESENT: normal bowel sounds, soft. ABSENT: guarding, mass, tenderness Extremities exam: ABSENT: No edema Neurological exam: PRESENT: alert, awake, oriented to person, place and time. Skin exam: PRESENT: dry, warm, Cardiovascular exam: PRESENT: RRR, +S1, +S2 GI/Abdominal exam: PRESENT: soft. ABSENT: tenderness Results Laboratory Results: 01/12/19 03:59 01/12/19 03:59 01/07/19 10:46 Blood Blood Culture - Final NO GROWTH IN 5 DAYS 01/08/19 01/09/1901/10/19 06:11 07:06 06:28 NT-Pro-B Natriuret Pep 83652 H 83237 H 15439 H Impressions: Chest X-Ray 01/07/19 08:36 IMPRESSION: NO ACUTE RADIOGRAPHIC FINDING IN THE CHEST. Head CT 01/07/19 08:36 IMPRESSION: No acute findings EVIDENCE OF ACUTE STROKE: NO. Assessment & Plan - Diagnosis (1) Acute renal failure superimposed on stage 3 chronic kidney disease Is this a current diagnosis for this admission?: Yes Plan: The acute worsening of kidney function is most likely secondary to significant and severe hypotension on presentation. Patient's kidney function has improved and is actually currently at baseline kidney function. It needs to maintain a decent amount of mean arterial pressure for adequate renal perfusion. No need of any renal replacement therapy. (2) Hypotension Qualifiers: Hypotension type: unspecified hypotension type Qualified Code(s): I95.9 - Hypotension, unspecified Is this a current diagnosis for this admission?: Yes Plan: This is likely related to the patient's poor cardiac function. Agree to continue midodrine as currently prescribed. (3) Combined congestive systolic and diastolic heart failure Qualifiers: Heart failure chronicity: chronic Qualified Code(s): I50.42 - Chronic combined systolic (congestive) and diastolic (congestive) heart failure Is this a current diagnosis for this admission?: Yes (4) Metabolic acidosis Is this a current diagnosis for this admission?: Yes Plan: Slightly getting worse. I will start him on sodium bicarbonate. (5) Generalized weakness Is this a current diagnosis for this admission?: Yes Plan: Likely secondary to severe hypotension along with other comorbidities including CHF and CKD. Agree with the patient would need continuous physical therapy in a rehab facility. (6) Anemia in chronic kidney disease Is this a current diagnosis for this admission?: Yes Plan: Stable. Does not need Procrit at this point. - Time Time with patient: 15-25 minutes
[2019-01-13] MEDS: SODIUM BICARBONATE 650 MG TABLET PO SCH ×2 (17:55→21:39)
[2019-01-13] MEDS: FAMOTIDINE 20 MG TABLET PO SCH (21:39)
[2019-01-13] MEDS: ATORVASTATIN CALCIUM 10 MG TABLET PO SCH (21:39)
[2019-01-14] MEDS: LEVOTHYROXINE SODIUM 0.1 MG TABLET PO SCH (05:29)
[2019-01-14] MEDS: MIDODRINE HCL 5 MG TABLET PO SCH ×2 (09:16→14:43)
[2019-01-14] MEDS: DUTASTERIDE 0.5 MG CAPSULE PO SCH (09:16)
[2019-01-14] MEDS: SODIUM BICARBONATE 650 MG TABLET PO SCH (09:17)
[2019-01-14] MEDS: DOCUSATE SODIUM 100 MG CAPSULE PO SCH (09:17)
[2019-01-14 15:42] VITALS: BP 101/65
== END 2019-01-14 16:10 | DRG 872 ==
LOC: ER 08:32 → EH 12:13 → 3S 22:40
PROVIDERS: ADMIT Family Medicine; ATTEND Family Medicine
DX: R57.1 Hypovolemic shock (principal); N17.9 Acute kidney failure, unspecified; I13.0 Hypertensive heart and chronic kidney disease with heart failure and stage 1 through stage 4 chronic kidney disease, or unspecified chronic kidney disease; I50.42 Chronic combined systolic (congestive) and diastolic (congestive) heart failure; N18.4 Chronic kidney disease, stage 4 (severe); I95.9 Hypotension, unspecified; Z66 Do not resuscitate; E87.5 Hyperkalemia; E83.42 Hypomagnesemia; D69.6 Thrombocytopenia, unspecified; N40.0 Benign prostatic hyperplasia without lower urinary tract symptoms; F03.90 Unspecified dementia, unspecified severity, without behavioral disturbance, psychotic disturbance, mood disturbance, and anxiety; Z60.2 Problems related to living alone; Z95.0 Presence of cardiac pacemaker
CPT/HCPCS: 36415; 70450; 71045; 80048; 80053; 81001; 82272; 83605; 83735; 83880; 85025; 87040; 87086; 87493; 93005; 93010; 94640; 96361; 96365; 96367; 99285; J0696; J2543; J3475; J3490; J7030; J7050; J7120; S0028

== ENCOUNTER 2019-01-31 13:12 | Inpatient (IN) | payer MEDICARE, MEDICAID ==
[2019-01-31 15:42] LABS: HEMATOCRIT 36.8 % (37.9-51.0); HEMOGLOBIN 11.7 g/dL (13.5-17.0); MEAN CORPUSCULAR HEMOGLOBIN 33.4 pg (27.0-33.4); MEAN CORPUSCULAR HGB CONC 31.8 g/dL (32.0-36.0); MEAN CORPUSCULAR VOLUME 105 fl (80-97); RED CELL DISTRIBUTION WIDTH 20.1 % (11.5-14.0)
--- NOTE | 2019-01-31 15:43 | RADIOLOGY REPORT (SQ) ---
EXAM DESCRIPTION: CHEST SINGLE VIEW COMPLETED DATE/TIME: 01/31/2019 3:33 pm REASON FOR STUDY: Fever COMPARISON: 01/07/2019 EXAM PARAMETERS: NUMBER OF VIEWS: One view. TECHNIQUE: Single frontal radiographic view of the chest acquired. RADIATION DOSE: NA LIMITATIONS: Suboptimal patient positioning. FINDINGS: LUNGS AND PLEURA: Focal consolidation of the right lower lobe with likely layering pleural effusion. Patchy airspace opacities are likewise seen of the left lower lobe. MEDIASTINUM AND HILAR STRUCTURES: No masses. Contour normal. HEART AND VASCULAR STRUCTURES: Cardiomegaly. The central vasculature is poorly characterized given c oncomitant pulmonary findings. BONES: No acute findings. HARDWARE: Transvenous cardiac pacer. OTHER: No other significant finding. IMPRESSION: Given reported fever, findings are favored to represent multi lobar pneumonia. Superimp osed CHF exacerbation is not excluded. TECHNICAL DOCUMENTATION: JOB ID: [id number] [employer]- All Rights Reserved Reading location - IP/workstation name: [email or web address]
[2019-01-31 15:44] LABS: INTERNATIONAL RATION (INR) 2.03; PROTHROMBIN TIME 23.9 SEC (11.4-15.4)
[2019-01-31 15:54] LABS: ALANINE AMINOTRANSFERASE 74 U/L (21-72); ALBUMIN 3.1 g/dL (3.5-5.0); ALKALINE PHOSPHATASE 138 U/L (38-126); ANION GAP 17 (5-19); ASPARTATE AMINO TRANSFERASE 67 U/L (17-59); BILIRUBIN,DIRECT 2.2 mg/dL (0.0-0.4); BILIRUBIN,TOTAL 2.7 mg/dL (0.2-1.3); BLOOD UREA NITROGEN 103 mg/dL (7-20); CALCIUM 9.1 mg/dL (8.4-10.2); CARBON DIOXIDE 14 mmol/L (22-30); CHLORIDE 110 mmol/L (98-107); GLUCOSE 116 mg/dL (75-110); POTASSIUM 4.8 mmol/L (3.6-5.0); SODIUM 140.6 mmol/L (137-145); TOTAL PROTEIN 6.1 g/dL (6.3-8.2)
[2019-01-31 16:01] LABS: ABSOLUTE LYMPHOCYTES# (MANUAL) 0.4 10^3/uL (0.5-4.7); ABSOLUTE MONOCYTES # (MANUAL) 0.3 10^3/uL (0.1-1.4); ABSOLUTE NEUTROPHILS# (MANUAL) 6.6 10^3/uL (1.7-8.2); BAND NEUTROPHILS % (MANUAL) 3 % (3-5); BASOPHILS % (MANUAL) 0 % (0-2); EOSINOPHILS % (MANUAL) 0 % (0-6); LYMPHOCYTES % (MANUAL) 5 % (13-45); MONOCYTES % (MANUAL) 4 % (3-13); SEGMENTED NEUTROPHILS % (MAN) 88 % (42-78); TOTAL CELLS COUNTED 100
[2019-01-31 16:03] LABS: PLATELET COMMENT DECREASED
[2019-01-31 16:11] LABS: ANISOCYTOSIS 2+; BURR CELLS 1+; POIKILOCYTOSIS 1+; TARGET CELLS 2+; TEAR DROP CELLS 2+
[2019-01-31 16:12] LABS: OVALOCYTES SLIGHT; PLATELET COUNT 46 10^3/uL (150-450)
[2019-01-31 16:13] LABS: NUCLEATED RED BLOOD CELLS 11 /100 WBC (0)
[2019-01-31] MEDS ORDERED: CEFTRIAXONE 1 GM/D5W RTU 1 GM/50 ML RTUPB IV ONE (16:21)
[2019-01-31 16:24] LABS: APPEARANCE,URINE SLIGHTLY-CLOUDY; BILIRUBIN,URINE NEGATIVE (NEGATIVE); COLOR,URINE YELLOW; GLUCOSE, URINE NEGATIVE (NEGATIVE); KETONES,URINE NEGATIVE (NEGATIVE); LEUKOCYTE ESTERASE,URINE SMALL (NEGATIVE); NITRITE,URINE NEGATIVE (NEGATIVE); PROTEIN,URINE 30 mg/dL (NEGATIVE); URINE SPECIFIC GRAVITY 1.016
[2019-01-31] MEDS ORDERED: IPRATROPIUM/ALBUTEROL 0.5-2.5 MG/3 ML AMPUL NEB PRN (16:54)
[2019-01-31] MEDS ORDERED: ACETAMINOPHEN 325 MG TABLET PO PRN (16:54)
--- NOTE | 2019-01-31 17:51 | RADIOLOGY REPORT (SQ) ---
EXAM DESCRIPTION: CT ABD/PELVIS NO ORAL OR IV COMPLETED DATE/TIME: 01/31/2019 5:37 pm REASON FOR STUDY: Hx CHF, slight elevation of LFTs and bilirubin. COMPARISON: Chest radiograph 01/31/[address] abdomen and pelvis 08/19/2014 TECHNIQUE: CT scan of the abdomen and pelvis performed without intravenous or oral contrast. Images reviewed with lung, soft tissue, and bone windows. Reconstructed coronal and sagittal MPR images revi ewed. All images stored on PACS. All CT scanners at this facility use dose modulation, iterative reconstruction, and/or weight based d osing when appropriate to reduce radiation dose to as low as reasonably achievable (ALARA). [facility]: Dose Right [facility]: CareDose [facility]: Dose Right [facility]: Teradose 4D [facility]: [email or web address] RADIATION DOSE: CT Rad equipment meets quality standard of care and radiation dose reduction techniq ues were employed. CTDIvol: 12.4 mGy. DLP: 653 mGy-cm.mGy. LIMITATIONS: Noncontrast technique and patient positioning. FINDINGS: LOWER CHEST: Cardiomegaly and bilateral pleural effusions with compressive atelectasis of the right lower lobe. NON-CONTRASTED LIVER, SPLEEN, ADRENALS: Evaluation limited by lack of IV contrast. No identified sign ificant masses. PANCREAS: No masses. No peripancreatic inflammatory changes. GALLBLADDER: Multiple dependent gallstones without mural thickening or pericholecystic fluid. No int rahepatic or extrahepatic biliary dilatation. RIGHT KIDNEY AND URETER: No suspicious masses. Assessment limited by lack of IV contrast. No signif icant calcifications. No hydronephrosis or hydroureter. LEFT KIDNEY AND URETER: No suspicious masses. Incidental note is again made of a 5 cm simple cyst em anating from the anterior cortex. Assessment limited by lack of IV contrast. No significant calcif ications. No hydronephrosis or hydroureter. AORTA AND RETROPERITONEUM: No aneurysm. No retroperitoneal masses or adenopathy. BOWEL AND PERITONEAL CAVITY: Free fluid tracks along the right pericolic recess to the level of the p emmanuel. Mild, diffuse mesenteric fat stranding is demonstrated. The an opacified bowel demonstrates no discrete or focal inflammatory changes. APPENDIX: Not visualized. PELVIS, BLADDER, AND ABDOMINAL WALL:No abnormal masses. The bladder is decompressed by a Melendez tammy ter. BONES: Degenerative changes are seen of the hips and spine. OTHER: Diffuse subcutaneous fat stranding is demonstrated without focal fluid collection. IMPRESSION: Limited examination. Given cardiomegaly and bilateral pleural effusions, favor CHF exac erbation with resultant 3rd spacing to include ascites and subcutaneous fat stranding. Stable chroni c and incidental findings as detailed above. COMMENT: Quality ID # [id number]: Final reports with documentation of one or more dose reduction techniques (e.g., Automated exposure control, adjustment of the mA and/or kV according to patient size, use of iterative reconstruction technique) TECHNICAL DOCUMENTATION: JOB ID: [id number] [employer]- All Rights Reserved Reading location - IP/workstation name: [email or web address]
--- NOTE | 2019-01-31 17:57 | PDOC H&P ---
History of Present Illness Admission Date/PCP: MARCOS VANCE MD Patient complains of: Altered mental status History of Present Illness: ITZEL MA is a 88 year old male This is a 88-year-old male with a history of the congestive heart failure with EF is only 20% with a history of the chronic kidney disease history of the thrombocytopenia most likely due to the cardiac cirrhosis history of the dementia hypertension's hyperlipidemia multiple other comorbidity with extensive admission in the hospital following a couple of weeks back seen by the nephrology cardiology nothing much they can offer Discussed with the patient's nephew who is the patient's caregiver regarding the patient's current conditions patient is a DNR/DNI at the times Patient's was sent to the nursing facility brought to the department because of the altered mental status and the fever and presumed urinary tract infections Patient had a urine culture was done no record at this point in the nursing facilities In emergency department patient's have a questionable multilobar pneumonia and a fever and diagnosed with the sepsis and the patient also have a heart failure and the kidney failure and decided to admit in the hospital Patient's when I saw it basically on a baseline alert awake answer the questions still very weak Past Medical History Cardiac Medical History: Reports: Congestive Heart Failure, Coronary Artery Disease, Hyperlipidema, Hypertension Denies: Myocardial Infarction Pulmonary Medical History: Denies: Asthma Neurological Medical History: Denies: Seizures Renal/ Medical History: Reports: Chronic Kidney Disease GI Medical History: Reports: Gastroesophageal Reflux Disease Denies: Hepatitis, Hiatal Hernia Musculoskeltal Medical History: Reports: Arthritis - osteo Psychiatric Medical History: Reports: Dementia Hematology: Reports: Anemia Denies: Sickle Cell Disease Past Surgical History Past Surgical History: Reports: Pacemaker Social History Information Source: Patient Smoking Status: Unknown if Ever Smoked Frequency of Alcohol Use: None Hx Recreational Drug Use: No Drugs: None Family History Family History: None Parental Family History Reviewed: Yes Children Family History Reviewed: Yes Sibling(s) Family History Reviewed.: Yes Medication/Allergy Home Medications: Dutasteride [Avodart Lf 0.5 mg Capsule] 0.5 mg PO DAILY 01/07/19 Ferrous Sulfate [Feosol 325 mg Tablet] 325 mg PO DAILY 01/07/19 Furosemide [Lasix 20 mg Tablet] 20 mg PO 01/07/19 Levothyroxine Sodium [Synthroid 0.1 mg Tablet] 0.1 mg PO Q6AM 01/07/19 Paricalcitol [Zemplar 1 Mcg Capsule] 1 mcg PO MOWEFR@1000 01/07/19 Pravastatin Sodium [Pravachol] 40 mg PO QHS 01/07/19 Allopurinol [Zyloprim 300 mg Tablet] 100 mg PO DAILY #0 01/13/19 Famotidine [Pepcid 20 mg Tablet] 20 mg PO QHS #30 tablet 01/13/19 Valsartan 40 mg PO Q12 01/31/19 Allergies/Adverse Reactions: pseudoephedrine HCl [From Sudafed] Allergy (Severe, Verified 01/07/19 09:09) SWELLING amlodipine besylate [From Lotrel] Allergy (Unknown, Verified 01/07/19 09:09) benazepril HCl [From Lotrel] Allergy (Unknown, Verified 01/07/19 09:09) Review of Systems ROS unobtainable: Due to mental status All systems: reviewed and no additional remarkable complaints except as stated Constitutional: PRESENT: chills, fatigue, weakness. ABSENT: fever(s), headache(s), weight gain, weight loss Eyes: ABSENT: visual disturbances Ears: ABSENT: hearing changes Cardiovascular: ABSENT: chest pain, dyspnea on exertion, edema, orthropnea, palpitations Respiratory: ABSENT: cough, hemoptysis Gastrointestinal: ABSENT: abdominal pain, constipation, diarrhea, hematemesis, hematochezia, nausea, vomiting Genitourinary: ABSENT: dysuria, hematuria Musculoskeletal: ABSENT: joint swelling Integumentary: ABSENT: rash, wounds Neurological: ABSENT: abnormal gait, abnormal speech, confusion, dizziness, focal weakness, syncope Psychiatric: ABSENT: anxiety, depression, homidical ideation, suicidal ideation Endocrine: ABSENT: cold intolerance, heat intolerance, menstrual abnormalities, polydipsia, polyuria Hematologic/Lymphatic: ABSENT: easy bleeding, easy bruising, lymphadenopathy Physical Exam Vital Signs: Temp Pulse Resp BP Pulse Ox 97.5 F 32 H 163/142 H 01/31/19 14:52 01/31/19 14:01 01/31/19 14:01 Intake & Output 01/30/19 01/31/19 02/01/19 06:59 06:59 06:59 Weight 72.1 kg General appearance: PRESENT: no acute distress Head exam: PRESENT: atraumatic, normocephalic Eye exam: PRESENT: conjunctiva pink, EOMI, PERRLA. ABSENT: scleral icterus Ear exam: PRESENT: normal external ear exam Mouth exam: PRESENT: moist, tongue midline Neck exam: PRESENT: full ROM. ABSENT: carotid bruit, JVD, lymphadenopathy, thyromegaly Respiratory exam: PRESENT: decreased breath sounds Cardiovascular exam: PRESENT: RRR. ABSENT: diastolic murmur, rubs, systolic murmur Pulses: PRESENT: normal dorsalis pedis pul, +2 pedal pulses bilateral Vascular exam: PRESENT: normal capillary refill GI/Abdominal exam: PRESENT: normal bowel sounds, soft. ABSENT: distended, guarding, mass, organolmegaly, rebound, tenderness Rectal exam: PRESENT: deferred Extremities exam: ABSENT: pedal edema Neurological exam: PRESENT: alert, awake, oriented to person. ABSENT: motor sensory deficit Psychiatric exam: PRESENT: appropriate affect, normal mood. ABSENT: homicidal ideation, suicidal ideation Skin exam: PRESENT: dry, intact, warm. ABSENT: cyanosis, rash Results Laboratory Results: 01/31/19 15:23 01/31/19 15:23 01/31/19 01/31/19 01/31/19 14:35 15:23 15:23 WBC 7.0 RBC 3.50 L Hgb 11.7 L Hct 36.8 L MCV 105 H MCH 33.4 MCHC 31.8 L RDW 20.1 H Plt Count 46 L Seg Neutrophils % Not Reportable Lymphocytes % Not Reportable Monocytes % Not Reportable Eosinophils % Not Reportable Basophils % Not Reportable Absolute Neutrophils Not Reportable Absolute Lymphocytes Not Reportable Absolute Monocytes Not Reportable Absolute Eosinophils Not Reportable Absolute Basophils Not Reportable Sodium 140.6 Potassium 4.8 Chloride 110 H Carbon Dioxide 14 L Anion Gap 17 BUN 103 H Creatinine 2.20 H Est GFR ( Amer) 34 L Est GFR (Non-Af Amer) 28 L Glucose 116 H Lactic Acid Calcium 9.1 Total Bilirubin 2.7 H AST 67 H ALT 74 H Alkaline Phosphatase 138 H Total Protein 6.1 L Albumin 3.1 L Urine Color YELLOW Urine Appearance SLIGHTLY-CLOUDY Urine pH 5.0 Ur Specific [place] 1.016 Urine Protein 30 H Urine Glucose (UA) NEGATIVE Urine Ketones NEGATIVE Urine Blood NEGATIVE Urine Nitrite NEGATIVE Ur Leukocyte Esterase SMALL H Urine WBC (Auto) 17 Urine RBC (Auto) 0 01/31/19 15:23 WBC RBC Hgb Hct MCV MCH MCHC RDW Plt Count Seg Neutrophils % Lymphocytes % Monocytes % Eosinophils % Basophils % Absolute Neutrophils Absolute Lymphocytes Absolute Monocytes Absolute Eosinophils Absolute Basophils Sodium Potassium Chloride Carbon Dioxide Anion Gap BUN Creatinine Est GFR ( Amer) Est GFR (Non-Af Amer) Glucose Lactic Acid 3.4 H Calcium Total Bilirubin AST ALT Alkaline Phosphatase Total Protein Albumin Urine Color Urine Appearance Urine pH Ur Specific [place] Urine Protein Urine Glucose (UA) Urine Ketones Urine Blood Urine Nitrite Ur Leukocyte Esterase Urine WBC (Auto) Urine RBC (Auto) Impressions: Chest X-Ray 01/31/19 15:02 IMPRESSION: Given reported fever, findings are favored to represent multi lobar pneumonia. Superimposed CHF exacerbation is not excluded. Assessment & Plan - Diagnosis (1) Pneumonia Qualifiers: Pneumonia type: due to unspecified organism Is this a current diagnosis for this admission?: Yes Plan: We will start the patient on broad-spectrum IV antibiotics (2) Altered mental status Is this a current diagnosis for this admission?: Yes Plan: Is likely from the sepsis and pneumonia Start the patient on broad-spectrum IV antibiotic (3) Acute renal failure Qualifiers: Acute renal failure type: unspecified Qualified Code(s): N17.9 - Acute kidney failure, unspecified Is this a current diagnosis for this admission?: Yes Plan: With the multifactorial Given some slowly IV fluid (4) Anemia in chronic kidney disease Qualifiers: Chronic kidney disease stage: stage 3 (moderate) Qualified Code(s): N18.3 - Chronic kidney disease, stage 3 (moderate); D63.1 - Anemia in chronic kidney disease Is this a current diagnosis for this admission?: Yes (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 Qualifiers: Heart failure chronicity: acute on chronic Qualified Code(s): I50.43 - Acute on chronic combined systolic (congestive) and diastolic (congestive) heart failure Is this a current diagnosis for this admission?: Yes Plan: Consult the cardiology (6) Dementia Qualifiers: Dementia behavioral disturbance: without behavioral disturbance Is this a current diagnosis for this admission?: Yes (7) Pacemaker Is this a current diagnosis for this admission?: Yes (8) Prostatic hyperplasia Is this a current diagnosis for this admission?: Yes (9) Thrombocytopenia Is this a current diagnosis for this admission?: Yes Plan: Likely due to the related to the sepsis and with the significant congestive heart failure (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 Is this a current diagnosis for this admission?: Yes Plan: At the CT scan of the abdomen and pelvis and ultrasound - Time Time Spent: 50 to 70 Minutes Medications reviewed and adjusted accordingly: Yes Anticipated discharge: SNF Within: Other - Inpatient Certification Based on my medical assessment, after consideration of the patient's comorbidities, presenting symptoms, or acuity I expect that the services needed warrant INPATIENT care.: Yes Medical Necessity: Failure to Improve With Outpatient Therapy, Significant Comorbidiites Make Outpatient Treatment Too Risky, Need For IV Fluids, Need For Continuous Telemetry Monitoring, Need for IV Antibiotics Post Hospital Care: D/C Client Strategist Documentation - Plan Summary Plan Summary: With the patient in IMCU Started on IV antibiotic We left the message for the patient's nephew who has a power of attorney law clerk to confirm the patient still is DNR/DNI I spoke myself last time confirmed the DNR/DNI With the multiple comorbidity patient is a very poor prognosis d/w pt family and d/w about poor prognosisi pt is dnr/dni
--- NOTE | 2019-01-31 18:11 | ER Document Report ---
ED General - General Chief Complaint: Altered Mental Status Stated Complaint: POSSIBLE SEPSIS Time Seen by Provider: 01/31/19 15:01 Notes: Patient is a resident at [facility] and was sent here for evaluation of worsening altered mental status.. Reportedly more confused. Also, seems to have increased respirations which sounds like some grunting. Has not had any significant cough. Or shortness of breath. No fever reported. History of CHF. Staff at [facility] saying patient's blood pressure was low and EMS recorded a blood pressure of 81/45. Other vital signs were unremarkable. Patient was just an inpatient here at [facility] and discharged a couple of weeks ago. TRAVEL OUTSIDE OF THE [place] IN LAST 30 DAYS: No - Related Data Allergies/Adverse Reactions: pseudoephedrine HCl [From Sudafed] Allergy (Severe, Verified 01/07/19 09:09) SWELLING amlodipine besylate [From Lotrel] Allergy (Unknown, Verified 01/07/19 09:09) benazepril HCl [From Lotrel] Allergy (Unknown, Verified 01/07/19 09:09) Past Medical History - Social History Smoking Status: Unknown if Ever Smoked Family History: None, Reviewed & Not Pertinent Patient has suicidal ideation: No Patient has homicidal ideation: No - Past Medical History Cardiac Medical History: Reports: Hx Congestive Heart Failure, Hx Coronary Artery Disease, Hx Hypercholesterolemia, Hx Hypertension Denies: Hx Heart Attack GI Medical History: Reports: Hx Gastroesophageal Reflux Disease Musculoskeletal Medical History: Reports Hx Arthritis - osteo Psychiatric Medical History: Reports: Hx Dementia Infectious Medical History: Denies: Hx Hepatitis Past Surgical History: Reports: Hx Cardiac Surgery - pacemake, Hx Pacemaker - Immunizations Hx Diphtheria, Pertussis, Tetanus Vaccination: Yes Review of Systems - Review of Systems -: Yes ROS unobtainable due to patient's medical condition - Patient is confused and unreliable source for review of systems Physical Exam - Vital signs Vitals: Resp 47 H 01/31/19 13:23 Interpretation: Normal. No: Hypotensive, Febrile - Actually somewhat hy pothermic. Notes: PHYSICAL EXAMINATION: GENERAL: Well-appearing, in no acute distress. Vital signs are all normal. Blood pressure 130/90. Patient is confused and I do not think he can provide a reliable history. HEAD: Atraumatic, normocephalic. EYES: Pupils equal round and reactive to light, extraocular movements intact. ENT: oropharynx clear without exudates. Moist mucous membranes. NECK: Normal range of motion, supple. LUNGS: Breath sounds decreased bilaterally, more on the right. HEART: Regular rate and rhythm without murmurs. ABDOMEN: Soft, nontender. No guarding or rebound. No masses. BACK: No tenderness throughout entire back. EXTREMITIES: Normal range of motion without pain. No peripheral pitting edema. NEUROLOGICAL: confused. Weak and feebly moves his 4 extremities. Unable to assess further. SKIN: Warm, dry, no rashes. Course - Re-evaluation Re-evalutation: 01/31/19 18:45 Patient's BUN is 106. Creatinine is in the twos. Spoke with Dr. Barton who will admit the patient to IMCU. Rocephin was started. Patient was put in a bear hugger because his core temperature declined into the 95 region. - Vital Signs Vital signs: Temp Pulse Resp BP Pulse Ox 97.5 F 28 H 114/100 H 65 L 01/31/19 14:52 01/31/19 18:02 01/31/19 18:02 01/31/19 17:00 - Laboratory Result Diagrams: 01/31/19 15:23 01/31/19 15:23 Laboratory results interpreted by me: 01/31/19 01/31/19 01/31/19 14:02 14:35 15:23 RBC 3.50 L Hgb 11.7 L Hct 36.8 L MCV 105 H MCHC 31.8 L RDW 20.1 H Plt Count 46 L Seg Neuts % (Manual) 88 H Lymphocytes % (Manual) 5 L Abs Lymphs (Manual) 0.4 L PT Chloride Carbon Dioxide BUN Creatinine Est GFR ( Amer) Est GFR (Non-Af Amer) Glucose POC Glucose 127 H Lactic Acid Total Bilirubin Direct Bilirubin AST ALT Alkaline Phosphatase Total Protein Albumin Urine Protein 30 H Urine Urobilinogen 4.0 H Ur Leukocyte Esterase SMALL H Urine Ascorbic Acid 20 H 01/31/19 01/31/19 01/31/19 15:23 15:23 15:23 RBC Hgb Hct MCV MCHC RDW Plt Count Seg Neuts % (Manual) Lymphocytes % (Manual) Abs Lymphs (Manual) PT 23.9 H Chloride 110 H Carbon Dioxide 14 L BUN 103 H Creatinine 2.20 H Est GFR ( Amer) 34 L Est GFR (Non-Af Amer) 28 L Glucose 116 H POC Glucose Lactic Acid 3.4 H Total Bilirubin 2.7 H Direct Bilirubin 2.2 H AST 67 H ALT 74 H Alkaline Phosphatase 138 H Total Protein 6.1 L Albumin 3.1 L Urine Protein Urine Urobilinogen Ur Leukocyte Esterase Urine Ascorbic Acid - Diagnostic Test Radiology results interpreted by me: 01/31/19 18:45 Chest x-ray shows pleural effusion and/or pneumonia. Discharge - Discharge Clinical Impression: Altered mental status, CHF (congestive heart failure) Pneumonia Qualifiers: Pneumonia type: due to unspecified organism Condition: Poor Disposition: ADMITTED INPATIENT Admitting Provider: Barton Unit Admitted: [facility]
--- NOTE | 2019-01-31 19:28 | EKG REPORT ---
SEVERITY:- ABNORMAL ECG - VENTRICULAR-PACED COMPLEXES : Confirmed by: Arpita Cintron MD 31-Jan-2019 19:28:10
[2019-01-31 19:34] LABS: VENOUS BLOOD BASE EXCESS -6.9 mmol/L; VENOUS BLOOD PCO2 45.6 mmHg (35-63); VENOUS BLOOD PH 7.26 (7.30-7.42)
[2019-01-31] MEDS: FAMOTIDINE INJ/PF 20 MG/2 ML SDV IV SCH (22:00)
[2019-01-31] MEDS: CEFEPIME 1 GM/D5W RTU 1 GM/50 ML RTUPB IV SCH (22:00)
[2019-02-01 01:38] LABS: ARTERIAL BLOOD BASE EXCESS -6.1 mmol/L; ARTERIAL BLOOD H2CO3 1.38 mmol/L (1.05-1.35); ARTERIAL BLOOD HCO3 20.7 mmol/L (20-24); ARTERIAL BLOOD O2 SATURATION 49.7 % (94-98); ARTERIAL BLOOD PCO2 45.9 mmHg (35-45); ARTERIAL BLOOD PH 7.27 (7.35-7.45); ARTERIAL BLOOD TOTAL CO2 22.1 mmol/L (23-27)
[2019-02-01 01:43] LABS: ARTERIAL BLOOD FIO2 28
[2019-02-01 01:45] LABS: ARTERIAL BLOOD PO2 30.3 mmHg (80-100)
[2019-02-01] MEDS: LEVOTHYROXINE SODIUM 0.1 MG TABLET PO SCH (05:18)
[2019-02-01] MEDS ORDERED: PANTOPRAZOLE SODIUM 20 MG TABLET.DR PO SCH (06:00)
[2019-02-01 06:42] LABS: HEMATOCRIT 35.6 % (37.9-51.0); HEMOGLOBIN 11.4 g/dL (13.5-17.0); MEAN CORPUSCULAR HEMOGLOBIN 33.8 pg (27.0-33.4); MEAN CORPUSCULAR VOLUME 106 fl (80-97); RED BLOOD COUNT 3.37 10^6/uL (4.35-5.55); RED CELL DISTRIBUTION WIDTH 20.5 % (11.5-14.0); WHITE BLOOD COUNT 8.2 10^3/uL (4.0-10.5)
[2019-02-01 07:08] LABS: ABSOLUTE LYMPHOCYTES# (MANUAL) 0.4 10^3/uL (0.5-4.7); ABSOLUTE MONOCYTES # (MANUAL) 0.6 10^3/uL (0.1-1.4); ABSOLUTE NEUTROPHILS# (MANUAL) 7.2 10^3/uL (1.7-8.2); BAND NEUTROPHILS % (MANUAL) 1 % (3-5); BASOPHILS % (MANUAL) 0 % (0-2); EOSINOPHILS % (MANUAL) 0 % (0-6); LYMPHOCYTES % (MANUAL) 5 % (13-45); MONOCYTES % (MANUAL) 7 % (3-13); NUCLEATED RED BLOOD CELLS 8 /100 WBC (0); SEGMENTED NEUTROPHILS % (MAN) 87 % (42-78); TOTAL CELLS COUNTED 100
[2019-02-01 07:09] LABS: ANISOCYTOSIS 2+; OVALOCYTES SLIGHT; PLATELET COMMENT DECREASED; POIKILOCYTOSIS SLIGHT; TARGET CELLS SLIGHT; TEAR DROP CELLS SLIGHT; TOXIC VACUOLATION PRESENT
[2019-02-01 07:10] LABS: POLYCHROMASIA SLIGHT
[2019-02-01 07:11] LABS: PLATELET COUNT 49 10^3/uL (150-450)
--- NOTE | 2019-02-01 07:17 | RADIOLOGY REPORT (SQ) ---
EXAM DESCRIPTION: US ABDOMEN COMPLETED DATE/TME: 02/01/2019 00:00 CLINICAL HISTORY: 88 years Male, gall stone/fever/abnormal lft Comparison: None. LIMITATIONS: Bowel gas artifact. FINDINGS: Cholelithiasis/gallbladder sludge, 0.3 cm gallbladder wall thickness, sonographic Light's test not performed, liver, a 0.2-cm diameter common bile duct, no intrahepatic ductal dilation, hepatopetal patent flow of the portal vein, 9-cm right kidney, 9 cm left kidney with likely benign 4.9 cm simple cyst not definitively characterized, partially obscured spleen, obscured pancreas, visualized vasculature/abdominal aorta, moderate right pleural effusion, and no significant ascites appear otherwise unremarkable. IMPRESSION: Moderate right pleural effusion. Cholelithiasis/gallbladder sludge. Limitation.
[2019-02-01 08:07] LABS: ALANINE AMINOTRANSFERASE 90 U/L (21-72); ALBUMIN 2.9 g/dL (3.5-5.0); ALKALINE PHOSPHATASE 110 U/L (38-126); ANION GAP 15 (5-19); ASPARTATE AMINO TRANSFERASE 116 U/L (17-59); BILIRUBIN,DIRECT 2.3 mg/dL (0.0-0.4); BILIRUBIN,TOTAL 2.7 mg/dL (0.2-1.3); BLOOD UREA NITROGEN 110 mg/dL (7-20); CALCIUM 9.1 mg/dL (8.4-10.2); CARBON DIOXIDE 18 mmol/L (22-30); CHLORIDE 109 mmol/L (98-107); GLUCOSE 104 mg/dL (75-110); SODIUM 141.5 mmol/L (137-145); TOTAL PROTEIN 5.8 g/dL (6.3-8.2)
[2019-02-01] MEDS: CEFEPIME 1 GM/D5W RTU 1 GM/50 ML RTUPB IV SCH ×2 (09:29→21:04)
[2019-02-01] MEDS: FUROSEMIDE INJ/PF 20 MG/2 ML SDV IV SCH (09:29)
[2019-02-01] MEDS: FAMOTIDINE INJ/PF 20 MG/2 ML SDV IV SCH ×2 (09:29→21:04)
[2019-02-01] MEDS ORDERED: ALLOPURINOL 300 MG TABLET PO SCH (10:00)
--- NOTE | 2019-02-01 10:26 | PDOC PROGRESS REPORT ---
Subjective Progress Note for:: 02/01/19 Subjective:: Patient is currently doing fair Patient was put on a BiPAP last night due to the short of breath Patient's denied any chest pain to than any shortness of the breath this morning Patient still will alter Patient still having poor prognosis Reason For Visit: PNEUMONIA Physical Exam Vital Signs: Temp Pulse Resp BP Pulse Ox 97.4 F 41 L 10 L 130/90 H 74 L 02/01/19 07:19 02/01/19 08:25 02/01/19 08:25 02/01/19 08:25 02/01/19 08:25 Intake & Output 01/31/19 02/01/19 02/02/19 06:59 06:59 06:59 Intake Total 475 Output Total 200 Balance 275 Weight 71.3 kg General appearance: PRESENT: no acute distress Head exam: PRESENT: atraumatic, normocephalic Eye exam: PRESENT: conjunctiva pink, EOMI, PERRLA. ABSENT: scleral icterus Ear exam: PRESENT: normal external ear exam Mouth exam: PRESENT: moist, tongue midline Neck exam: PRESENT: full ROM. ABSENT: carotid bruit, JVD, lymphadenopathy, thyromegaly Respiratory exam: PRESENT: decreased breath sounds Cardiovascular exam: PRESENT: RRR. ABSENT: diastolic murmur, rubs, systolic murmur Pulses: PRESENT: normal dorsalis pedis pul, +2 pedal pulses bilateral Vascular exam: PRESENT: normal capillary refill GI/Abdominal exam: PRESENT: normal bowel sounds, soft. ABSENT: distended, guarding, mass, organolmegaly, rebound, tenderness Rectal exam: PRESENT: deferred Neurological exam: PRESENT: alert, awake, oriented to person, oriented to place. ABSENT: motor sensory deficit Psychiatric exam: PRESENT: appropriate affect, normal mood. ABSENT: homicidal ideation, suicidal ideation Skin exam: PRESENT: dry, intact, warm. ABSENT: cyanosis, rash Results Laboratory Results: 02/01/19 06:13 02/01/19 07:04 01/31/19 01/31/19 01/31/19 14:35 15:23 15:23 WBC 7.0 RBC 3.50 L Hgb 11.7 L Hct 36.8 L MCV 105 H MCH 33.4 MCHC 31.8 L RDW 20.1 H Plt Count 46 L Seg Neutrophils % Not Reportable Lymphocytes % Not Reportable Monocytes % Not Reportable Eosinophils % Not Reportable Basophils % Not Reportable Absolute Neutrophils Not Reportable Absolute Lymphocytes Not Reportable Absolute Monocytes Not Reportable Absolute Eosinophils Not Reportable Absolute Basophils Not Reportable Carbonic Acid HCO3/H2CO3 Ratio ABG pH ABG pCO2 ABG pO2 ABG HCO3 ABG O2 Saturation ABG Base Excess VBG pH VBG pCO2 VBG HCO3 VBG Base Excess FiO2 Sodium 140.6 Potassium 4.8 Chloride 110 H Carbon Dioxide 14 L Anion Gap 17 BUN 103 H Creatinine 2.20 H Est GFR ( Amer) 34 L Est GFR (Non-Af Amer) 28 L Glucose 116 H Lactic Acid Calcium 9.1 Total Bilirubin 2.7 H AST 67 H ALT 74 H Alkaline Phosphatase 138 H Total Protein 6.1 L Albumin 3.1 L Urine Color YELLOW Urine Appearance SLIGHTLY-CLOUDY Urine pH 5.0 Ur Specific [place] 1.016 Urine Protein 30 H Urine Glucose (UA) NEGATIVE Urine Ketones NEGATIVE Urine Blood NEGATIVE Urine Nitrite NEGATIVE Ur Leukocyte Esterase SMALL H Urine WBC (Auto) 17 Urine RBC (Auto) 0 01/31/19 01/31/19 02/01/19 15:23 19:21 01:20 WBC RBC Hgb Hct MCV MCH MCHC RDW Plt Count Seg Neutrophils % Lymphocytes % Monocytes % Eosinophils % Basophils % Absolute Neutrophils Absolute Lymphocytes Absolute Monocytes Absolute Eosinophils Absolute Basophils Carbonic Acid 1.38 H HCO3/H2CO3 Ratio 15:1 ABG pH 7.27 L ABG pCO2 45.9 H ABG pO2 30.3 L* ABG HCO3 20.7 ABG O2 Saturation 49.7 L ABG Base Excess -6.1 VBG pH 7.26 L VBG pCO2 45.6 VBG HCO3 20.0 VBG Base Excess -6.9 FiO2 28 Sodium Potassium Chloride Carbon Dioxide Anion Gap BUN Creatinine Est GFR ( Amer) Est GFR (Non-Af Amer) Glucose Lactic Acid 3.4 H Calcium Total Bilirubin AST ALT Alkaline Phosphatase Total Protein Albumin Urine Color Urine Appearance Urine pH Ur Specific [place] Urine Protein Urine Glucose (UA) Urine Ketones Urine Blood Urine Nitrite Ur Leukocyte Esterase Urine WBC (Auto) Urine RBC (Auto) 02/01/19 02/01/19 02/01/19 06:13 06:13 07:04 WBC 8.2 RBC 3.37 L Hgb 11.4 L Hct 35.6 L MCV 106 H MCH 33.8 H MCHC 32.0 RDW 20.5 H Plt Count 49 L Seg Neutrophils % Not Reportable Lymphocytes % Not Reportable Monocytes % Not Reportable Eosinophils % Not Reportable Basophils % Not Reportable Absolute Neutrophils Not Reportable Absolute Lymphocytes Not Reportable Absolute Monocytes Not Reportable Absolute Eosinophils Not Reportable Absolute Basophils Not Reportable Carbonic Acid HCO3/H2CO3 Ratio ABG pH ABG pCO2 ABG pO2 ABG HCO3 ABG O2 Saturation ABG Base Excess VBG pH VBG pCO2 VBG HCO3 VBG Base Excess FiO2 Sodium Cancelled 141.5 Potassium Cancelled 5.0 Chloride Cancelled 109 H Carbon Dioxide Cancelled 18 L Anion Gap Cancelled 15 BUN Cancelled 110 H Creatinine Cancelled 2.23 H Est GFR ( Amer) Cancelled 34 L Est GFR (Non-Af Amer) Cancelled 28 L Glucose Cancelled 104 Lactic Acid Calcium Cancelled 9.1 Total Bilirubin Cancelled 2.7 H AST Cancelled 116 H ALT Cancelled 90 H Alkaline Phosphatase Cancelled 110 Total Protein Cancelled 5.8 L Albumin Cancelled 2.9 L Urine Color Urine Appearance Urine pH Ur Specific [place] Urine Protein Urine Glucose (UA) Urine Ketones Urine Blood Urine Nitrite Ur Leukocyte Esterase Urine WBC (Auto) Urine RBC (Auto) Impressions: Chest X-Ray 01/31/19 15:02 IMPRESSION: Given reported fever, findings are favored to represent multi lobar pneumonia. Superimposed CHF exacerbation is not excluded. Abdomen/Pelvis CT 01/31/19 17:05 IMPRESSION: Limited examination. Given cardiomegaly and bilateral pleural effusions, favor CHF exacerbation with resultant 3rd spacing to include ascites and subcutaneous fat stranding. Stable chronic and incidental findings as detailed above. Abdomen Ultrasound 02/01/19 00:00 IMPRESSION: Moderate right pleural effusion. Cholelithiasis/gallbladder sludge. Limitation. Assessment & Plan - Diagnosis (1) Pneumonia Qualifiers: Pneumonia type: due to unspecified organism Is this a current diagnosis for this admission?: Yes Plan: Continues to broad-spectrum IV antibiotic Repeat the chest x-ray (2) Altered mental status Is this a current diagnosis for this admission?: Yes Plan: Due to the above conditions and sepsis (3) Acute renal failure Qualifiers: Acute renal failure type: unspecified Qualified Code(s): N17.9 - Acute kidney failure, unspecified Is this a current diagnosis for this admission?: Yes Plan: Continues to monitor (4) Anemia in chronic kidney disease Qualifiers: Chronic kidney disease stage: stage 3 (moderate) Qualified Code(s): N18.3 - Chronic kidney disease, stage 3 (moderate); D63.1 - Anemia in chronic kidney disease Is this a current diagnosis for this admission?: Yes (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 Qualifiers: Heart failure chronicity: acute on chronic Qualified Code(s): I50.43 - Acute on chronic combined systolic (congestive) and diastolic (congestive) heart failure Is this a current diagnosis for this admission?: Yes Plan: We will consult the cardiology (6) Dementia Qualifiers: Dementia behavioral disturbance: without behavioral disturbance Is this a current diagnosis for this admission?: Yes (7) Pacemaker Is this a current diagnosis for this admission?: Yes (8) Prostatic hyperplasia Is this a current diagnosis for this admission?: Yes (9) Thrombocytopenia Is this a current diagnosis for this admission?: Yes Plan: Likely due to the related to the sepsis and with the significant congestive heart failure (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 Is this a current diagnosis for this admission?: Yes Plan: At the CT scan of the abdomen and pelvis and ultrasound (11) Gallstone Qualifiers: Cholecystitis presence: without cholecystitis Is this a current diagnosis for this admission?: Yes Plan: We will get the opinion from the surgery whether patients need any cholecystectomy tubes are not Patient is very high risk for the surgery Patient's overall prognosis is very poor - Time Time Spent with patient: 15-24 minutes Medications reviewed and adjusted accordingly: Yes Anticipated discharge: SNF, Other Within: Other - Plan Summary Plan Summary: Again continues to current medications Consult the general surgery for the gallstone opinion Consult the cardiology As per discussed with the patient's power of attorney lawyer the family regarding the patient's current condition is poor currently DNR/DNI
[2019-02-01] MEDS: DUTASTERIDE 0.5 MG CAPSULE PO SCH (10:49)
[2019-02-01] MEDS: ALLOPURINOL 100 MG TABLET PO SCH (10:49)
[2019-02-01] MEDS: LEVOFLOXACIN 500 MG/D5W RTU 500 MG/100 ML RTUPB IV SCH (10:50)
--- NOTE | 2019-02-01 11:20 | RADIOLOGY REPORT (SQ) ---
EXAM DESCRIPTION: CHEST SINGLE VIEW COMPLETED DATE/TIME: 02/01/2019 10:54 am REASON FOR STUDY: sob/pnemonia COMPARISON: 01/31/2019. FINDINGS: Single-view chest AP portable upright. Bibasilar opacities. Potentially slightly worse on the left but improved on the right. There is a s mall right pleural effusion and likely a small left effusion. No pneumothorax. Stable cardiomediastinal silhouette. Relatively stable appearance of the chest overall. TECHNICAL DOCUMENTATION: JOB ID: [id number] Reading location - IP/workstation name: [email or web address] OF [email or web address]
--- NOTE | 2019-02-01 18:55 | PDOC CONSULTATION ---
Consultation-Blank Consultation: CARDIOLOGY CONSULTATION by Dr. alvarez has been on 02/01/2019. REASON FOR CONSULTATION: Patient with a history of cardiomyopathy and AICD. Assess cardiac status. CONSULT REQUESTING PHYSICIAN: Dr. Almita Barton. HISTORY PRESENT ILLNESS: Patient admitted for altered mental status and increasing confusion. The patient is unable to give any further history. He is also suspected to have a right lower lobe pneumonia and is being treated for antibiotics. He has a history of dementia which is progressively getting worse. The patient is known to have cardiomyopathy with severely reduced LV ejection fraction, history of AICD placement, and history of chronic kidney disease. He has had several episodes of acute on chronic systolic heart failure episodes. No further history is available from the patient due to the patient's altered mental status. He has history of coronary artery disease, but denies any chest pain or discomfort. He has a history of hypotension, and his blood pressure is maintained with Midrin 10 mg p.o. 3 times daily. He also has a history of hypothyroidism and hyperlipidemia. Past Medical History Cardiac Medical History: Reports: Congestive Heart Failure, Coronary Artery Disease, Hyperlipidema, Hypertension Denies: Myocardial Infarction Pulmonary Medical History: Denies: Asthma Neurological Medical History: Denies: Seizures Renal/ Medical History: Reports: Chronic Kidney Disease GI Medical History: Reports: Gastroesophageal Reflux Disease Denies: Hepatitis, Hiatal Hernia Musculoskeltal Medical History: Reports: Arthritis - osteo Psychiatric Medical History: Reports: Dementia Hematology: Reports: Anemia Denies: Sickle Cell Disease Past Surgical History Past Surgical History: The patient has a history of AICD placement. Social History: The patient does not smoke. There is no history of EtOH abuse Family History Family History: Is positive for hypertension and coronary artery disease. There is also a history of congestive heart failure. Medication/Allergy Home Medications: Dutasteride [Avodart Lf 0.5 mg Capsule] 0.5 mg PO DAILY 01/07/19 Ferrous Sulfate [Feosol 325 mg Tablet] 325 mg PO DAILY 01/07/19 Furosemide [Lasix 20 mg Tablet] 20 mg PO 01/07/19 Levothyroxine Sodium [Synthroid 0.1 mg Tablet] 0.1 mg PO Q6AM 01/07/19 Paricalcitol [Zemplar 1 Mcg Capsule] 1 mcg PO MOWEFR@1000 01/07/19 Pravastatin Sodium [Pravachol] 40 mg PO QHS 01/07/19 Allopurinol [Zyloprim 300 mg Tablet] 100 mg PO DAILY #0 01/13/19 Famotidine [Pepcid 20 mg Tablet] 20 mg PO QHS #30 tablet 01/13/19 Valsartan 40 mg PO Q12 01/31/19 Allergies/Adverse Reactions: pseudoephedrine HCl [From Sudafed] Allergy (Severe, Verified 01/07/19 09:09) SWELLING amlodipine besylate [From Lotrel] Allergy (Unknown, Verified 01/07/19 09:09) benazepril HCl [From Lotrel] Allergy (Unknown, Verified 01/07/19 09:09) RESUSCITATION STATUS: The patient is DNR. His nephew is his surrogate healthcare decision maker. Review of Systems not obtainable due to the patient's altered mental status. PHYSICAL EXAMINATION: The patient appears to be chronically ill and malnourished. But he does not seem to be in any acute distress. Selected Entries 02/01/19 11:44 Temperature 98.4 F Temperature Axillary Source Pulse Rate 67 Respiratory 10 L Rate Blood Pressure 129/97 H Blood Pressure 107 Mean BP Location Right Arm BP Position Sitting O2 Sat by Pulse 98 Oximetry Oxygen Flow 4 Rate Oxygen Delivery Nasal Cannula Method HEAD: Is atraumatic normocephalic. EYES: Pupils equal round regular reactive light accommodation. Extraocular movements are normal. There is no conjunctival pallor. There is no scleral icterus. ENT: Is negative. NECK: Is supple. There is no JVD. Carotids are equal there is no bruit. There is no lymphadenopathy. There is no goiter. There is no accessory muscle respiration use. Trachea central. LUNGS: There is a few dry crackles in the right lower lobe. There is no evidence of rales of heart failure. HEART: S1-S2 is heard. There is no S3 gallop. There is no S4 gallop. There is murmur of mild mitral regurgitation and tricuspid regurgitation present. There is no rub. ABDOMEN: Soft. Nontender. There is no hepatospleno megaly bowel sounds well heard. There is no tender areas masses. EXTREMITIES: Femorals are diminished. There is no femoral bruits. There is leg pulses are diminished. There is no pedal edema. There is no DVT or cellulitis. There is no sinus or clubbing. There is no calf tenderness. RN HEDIS: The patient is conscious awake but confused. He is able to move all 4 extremities. PSYCHIATRIC: Not tested in depth due to patient's mental status changes. The patient does not appear to be agitated or anxious. Current Medications Acetaminophen (Tylenol 325 Mg Tablet) 650 mg PO Q4HP PRN PRN Reason: FOR PAIN OR TEMP Stop: 03/02/19 16:53 Albuterol/Ipratropium (Duoneb 3 Ml Ampul) 3 ml NEB RTQ6HP PRN PRN Reason: SHORTNESS OF BREATH Stop: 03/02/19 16:53 Allopurinol (Zyloprim 100 Mg Tablet) 100 mg PO DAILY ELVIN Stop: 03/03/19 09:59 Last Admin: 02/01/19 10:49 Dose: 100 mg Documented by: Dutasteride (Avodart Lf 0.5 Mg Capsule) 0.5 mg PO DAILY ELVIN Stop: 03/03/19 09:59 Last Admin: 02/01/19 10:49 Dose: 0.5 mg Documented by: Famotidine (Pepcid Inj/Pf 20 Mg/2 Ml Sdv) 20 mg IV Q12 ELVIN Stop: 03/02/19 21:59 Last Admin: 02/01/19 09:29 Dose: 20 mg Documented by: Furosemide (Lasix Inj/Pf 20 Mg/2 Ml Sdv) 20 mg IV DAILY ELVIN Stop: 03/03/19 09:59 Last Admin: 02/01/19 09:29 Dose: 20 mg Documented by: Cefepime HCl (Maxipime Rtu 1 Gm/D5w 50 Ml Premix Bag) 1 gm in 50 mls @ 100 mls/hr IV Q12 ELVIN Stop: 02/07/19 21:59 Last Infusion: 02/01/19 10:29 Dose: Infused Documented by: Levofloxacin/Dextrose (Levaquin Rtu 500mg/D5w 100 Ml Premix) 500 mg in 100 mls @ 100 mls/hr IV DAILY ELVIN Stop: 02/08/19 09:59 Last Infusion: 02/01/19 11:50 Dose: Infused Documented by: Levothyroxine Sodium (Synthroid 0.1 Mg Tablet) 0.1 mg PO Q6AM ELVIN Stop: 03/03/19 05:59 Last Admin: 02/01/19 05:18 Dose: 0.1 mg Documented by: Sodium Bicarbonate (Sodium Bicarbonate 650 Mg Tablet) 650 mg PO Q12 ELVIN Stop: 03/03/19 21:59 Labs- All tests 24 hr 01/31/19 02/01/19 02/01/19 19:21 01:20 06:13 WBC 8.2 RBC 3.37 L Hgb 11.4 L Hct 35.6 L MCV 106 H MCH 33.8 H MCHC 32.0 RDW 20.5 H Plt Count 49 L Total Counted 100 Seg Neutrophils % Not Reportable Seg Neuts % (Manual) 87 H Band Neutrophils % 1 L Lymphocytes % Not Reportable Lymphocytes % (Manual) 5 L Monocytes % Not Reportable Monocytes % (Manual) 7 Eosinophils % Not Reportable Eosinophils % (Manual) 0 Basophils % Not Reportable Basophils % (Manual) 0 Absolute Neutrophils Not Reportable Abs Neuts (Manual) 7.2 Absolute Lymphocytes Not Reportable Abs Lymphs (Manual) 0.4 L Absolute Monocytes Not Reportable Abs Monocytes (Manual) 0.6 Absolute Eosinophils Not Reportable Absolute Eos (Manual) 0.0 Absolute Basophils Not Reportable Abs Basophils (Manual) 0.0 Nucleated RBCs 8 Toxic Vacuolation PRESENT Platelet Comment DECREASED Polychromasia SLIGHT Poikilocytosis SLIGHT Anisocytosis 2+ Macrocytosis 2+ Target Cells SLIGHT Tear Drop Cells SLIGHT Ovalocytes SLIGHT Carbonic Acid 1.38 H HCO3/H2CO3 Ratio 15:1 ABG pH:These are Venous gases, 7.27 L ABG pCO2 45.9 H ABG pO2 30.3 L* ABG HCO3 20.7 ABG Total CO2 22.1 L ABG O2 Saturation 49.7 L ABG Base Excess -6.1 VBG pH 7.26 L VBG pCO2 45.6 VBG HCO3 20.0 VBG Base Excess -6.9 FiO2 28 Sodium Potassium Chloride Carbon Dioxide Anion Gap BUN Creatinine Est GFR ( Amer) Est GFR (Non-Af Amer) Glucose Calcium Total Bilirubin Direct Bilirubin Neonat Total Bilirubin Neonat Direct Bilirubin Neonat Indirect Bili AST ALT Alkaline Phosphatase Total Protein Albumin 02/01/19 02/01/19 06:13 07:04 WBC RBC Hgb Hct MCV MCH MCHC RDW Plt Count Total Counted Seg Neutrophils % Seg Neuts % (Manual) Band Neutrophils % Lymphocytes % Lymphocytes % (Manual) Monocytes % Monocytes % (Manual) Eosinophils % Eosinophils % (Manual) Basophils % Basophils % (Manual) Absolute Neutrophils Abs Neuts (Manual) Absolute Lymphocytes Abs Lymphs (Manual) Absolute Monocytes Abs Monocytes (Manual) Absolute Eosinophils Absolute Eos (Manual) Absolute Basophils Abs Basophils (Manual) Nucleated RBCs Toxic Vacuolation Platelet Comment Polychromasia Poikilocytosis Anisocytosis Macrocytosis Target Cells Tear Drop Cells Ovalocytes Carbonic Acid HCO3/H2CO3 Ratio ABG pH ABG pCO2 ABG pO2 ABG HCO3 ABG Total CO2 ABG O2 Saturation ABG Base Excess VBG pH VBG pCO2 VBG HCO3 VBG Base Excess FiO2 Sodium Cancelled 141.5 Potassium Cancelled 5.0 Chloride Cancelled 109 H Carbon Dioxide Cancelled 18 L Anion Gap Cancelled 15 BUN Cancelled 110 H Creatinine Cancelled 2.23 H Est GFR ( Amer) Cancelled 34 L Est GFR (Non-Af Amer) Cancelled 28 L Glucose Cancelled 104 Calcium Cancelled 9.1 Total Bilirubin Cancelled 2.7 H Direct Bilirubin Cancelled 2.3 H Neonat Total Bilirubin Cancelled Not Reportable Neonat Direct Bilirubin Cancelled Not Reportable Neonat Indirect Bili Cancelled Not Reportable AST Cancelled 116 H ALT Cancelled 90 H Alkaline Phosphatase Cancelled 110 Total Protein Cancelled 5.8 L Albumin Cancelled 2.9 L Chest X-Ray 01/31/19 15:02 IMPRESSION: Given reported fever, findings are favored to represent multi lobar pneumonia. Superimposed CHF exacerbation is not excluded. Abdomen/Pelvis CT 01/31/19 17:05 IMPRESSION: Limited examination. Given cardiomegaly and bilateral pleural effusions, favor CHF exacerbation with resultant 3rd spacing to include ascites and subcutaneous fat stranding. Stable chronic and incidental findings as detailed above. Abdomen Ultrasound 02/01/19 00:00 IMPRESSION: Moderate right pleural effusion. Cholelithiasis/gallbladder sludge. Limitation. IMPRESSION/RECOMMENDATION: 1. ALTERED MENTAL STATUS: Most likely this is secondary to progressive dementia in the patient 2. Multilobar pneumonia: Continue antibiotics. 3. Chronic systolic heart failure. At present compensated no evidence of acute heart failure. 4. Dilated cardiomyopathy: Continue current anti-cardia myopathy treatment. The patient stable on this 5. Chronic kidney disease stage III: Avoid nephrotoxic drugs. 6. Past history of hypotension: Blood pressure now stable on midodrine. Continue Midrin 7.AICD placement: No firing of AICD. Later would recommend checking the patient's AICD by interrogation. 8. Hypothyroidism: Continue thyroid replacement. 9. Hyperlipidemia: Continue statin MEDICATIONS: Reviewed. Management plan discussed with attending physician Dr. Barton. Note that the patient's cardiac status is stable. There is no further therapeutic modalities to offer to the patient. Would recommend discussions with the family to explore the possibility of placing the patient on comfort measures. Will sign off. Medical decision making is of moderate complexity. 60 minutes spent on this patient with more than 50% of time spent in direct patient care.
[2019-02-01] MEDS: SODIUM BICARBONATE 650 MG TABLET PO SCH (21:04)
[2019-02-02 04:31] LABS: HEMATOCRIT 34.5 % (37.9-51.0); HEMOGLOBIN 11.2 g/dL (13.5-17.0); MEAN CORPUSCULAR HGB CONC 32.5 g/dL (32.0-36.0); MEAN CORPUSCULAR VOLUME 105 fl (80-97); RED BLOOD COUNT 3.29 10^6/uL (4.35-5.55); RED CELL DISTRIBUTION WIDTH 20.6 % (11.5-14.0); WHITE BLOOD COUNT 8.5 10^3/uL (4.0-10.5)
[2019-02-02 04:48] LABS: ANION GAP 14 (5-19); BLOOD UREA NITROGEN 113 mg/dL (7-20); CALCIUM 9.3 mg/dL (8.4-10.2); CARBON DIOXIDE 20 mmol/L (22-30); CHLORIDE 108 mmol/L (98-107); GLUCOSE 121 mg/dL (75-110); POTASSIUM 4.5 mmol/L (3.6-5.0); SODIUM 141.7 mmol/L (137-145)
[2019-02-02] MEDS: LEVOTHYROXINE SODIUM 0.1 MG TABLET PO SCH (05:09)
[2019-02-02 05:30] LABS: ABSOLUTE LYMPHOCYTES# (MANUAL) 0.3 10^3/uL (0.5-4.7); ABSOLUTE MONOCYTES # (MANUAL) 0.3 10^3/uL (0.1-1.4); ABSOLUTE NEUTROPHILS# (MANUAL) 7.8 10^3/uL (1.7-8.2); BASOPHILS % (MANUAL) 0 % (0-2); EOSINOPHILS % (MANUAL) 0 % (0-6); LYMPHOCYTES % (MANUAL) 4 % (13-45); MONOCYTES % (MANUAL) 4 % (3-13); NUCLEATED RED BLOOD CELLS 7 /100 WBC (0); SEGMENTED NEUTROPHILS % (MAN) 92 % (42-78); TOTAL CELLS COUNTED 100
[2019-02-02 05:31] LABS: PLATELET COMMENT DECREASED
[2019-02-02 05:34] LABS: ANISOCYTOSIS 2+
[2019-02-02 05:35] LABS: BURR CELLS SLIGHT; OVALOCYTES SLIGHT; POIKILOCYTOSIS 1+; POLYCHROMASIA SLIGHT; TARGET CELLS 1+; TEAR DROP CELLS SLIGHT
[2019-02-02 05:37] LABS: PLATELET COUNT 45 10^3/uL (150-450)
[2019-02-02] MEDS: ALLOPURINOL 100 MG TABLET PO SCH (09:07)
[2019-02-02] MEDS: CEFEPIME 1 GM/D5W RTU 1 GM/50 ML RTUPB IV SCH ×2 (09:08→21:33)
[2019-02-02] MEDS: FAMOTIDINE INJ/PF 20 MG/2 ML SDV IV SCH ×2 (09:08→21:33)
[2019-02-02] MEDS: FUROSEMIDE INJ/PF 20 MG/2 ML SDV IV SCH (09:08)
[2019-02-02] MEDS: SODIUM BICARBONATE 650 MG TABLET PO SCH ×2 (09:08→21:33)
[2019-02-02] MEDS: DUTASTERIDE 0.5 MG CAPSULE PO SCH (09:09)
--- NOTE | 2019-02-02 09:27 | PDOC PROGRESS REPORT ---
Subjective Progress Note for:: 02/02/19 Subjective:: Patient is currently doing fair Denied any chest pain to than any shortness of the breath Patient's chest x-ray is also improving No other events happens Reason For Visit: PNEUMONIA Physical Exam Vital Signs: Temp Pulse Resp BP Pulse Ox 98.9 F 65 22 H 98/62 L 100 02/02/19 08:36 02/02/19 08:36 02/02/19 08:36 02/02/19 08:36 02/02/19 08:36 Intake & Output 02/01/19 02/02/19 02/03/19 06:59 06:59 06:59 Intake Total 475 980 Output Total 200 550 Balance 275 430 Weight 71.3 kg 75.9 kg General appearance: PRESENT: no acute distress Head exam: PRESENT: atraumatic, normocephalic Eye exam: PRESENT: conjunctiva pink, EOMI, PERRLA. ABSENT: scleral icterus Ear exam: PRESENT: normal external ear exam Mouth exam: PRESENT: moist, tongue midline Neck exam: PRESENT: full ROM. ABSENT: carotid bruit, JVD, lymphadenopathy, thyromegaly Respiratory exam: PRESENT: clear to auscultation rama Cardiovascular exam: PRESENT: RRR. ABSENT: diastolic murmur, rubs, systolic murmur Pulses: PRESENT: normal dorsalis pedis pul, +2 pedal pulses bilateral Vascular exam: PRESENT: normal capillary refill GI/Abdominal exam: PRESENT: normal bowel sounds, soft. ABSENT: distended, guarding, mass, organolmegaly, rebound, tenderness Rectal exam: PRESENT: deferred Neurological exam: PRESENT: alert, awake. ABSENT: motor sensory deficit Psychiatric exam: PRESENT: appropriate affect, normal mood. ABSENT: homicidal ideation, suicidal ideation Skin exam: PRESENT: dry, intact, warm. ABSENT: cyanosis, rash Results Laboratory Results: 02/02/19 06:00 02/02/19 03:40 02/02/19 02/02/19 03:40 06:00 WBC 8.5 RBC 3.29 L Hgb 11.2 L Hct 34.5 L MCV 105 H MCH 34.0 H MCHC 32.5 RDW 20.6 H Plt Count 45 L Seg Neutrophils % Not Reportable Lymphocytes % Not Reportable Monocytes % Not Reportable Eosinophils % Not Reportable Basophils % Not Reportable Absolute Neutrophils Not Reportable Absolute Lymphocytes Not Reportable Absolute Monocytes Not Reportable Absolute Eosinophils Not Reportable Absolute Basophils Not Reportable Sodium 141.7 Potassium 4.5 Chloride 108 H Carbon Dioxide 20 L Anion Gap 14 BUN 113 H Creatinine 2.57 H Est GFR ( Amer) 29 L Est GFR (Non-Af Amer) 24 L Glucose 121 H Calcium 9.3 Impressions: Abdomen/Pelvis CT 01/31/19 17:05 IMPRESSION: Limited examination. Given cardiomegaly and bilateral pleural effusions, favor CHF exacerbation with resultant 3rd spacing to include ascites and subcutaneous fat stranding. Stable chronic and incidental findings as detailed above. Abdomen Ultrasound 02/01/19 00:00 IMPRESSION: Moderate right pleural effusion. Cholelithiasis/gallbladder sludge. Limitation. Assessment & Plan - Diagnosis (1) Pneumonia Qualifiers: Pneumonia type: due to unspecified organism Is this a current diagnosis for this admission?: Yes Plan: Continues to IV antibiotic (2) Altered mental status Is this a current diagnosis for this admission?: Yes Plan: Due to the above conditions and sepsis (3) Acute renal failure Qualifiers: Acute renal failure type: unspecified Qualified Code(s): N17.9 - Acute kidney failure, unspecified Is this a current diagnosis for this admission?: Yes Plan: Continues to monitor (4) Anemia in chronic kidney disease Qualifiers: Chronic kidney disease stage: stage 3 (moderate) Qualified Code(s): N18.3 - Chronic kidney disease, stage 3 (moderate); D63.1 - Anemia in chronic kidney disease Is this a current diagnosis for this admission?: Yes (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 Qualifiers: Heart failure chronicity: acute on chronic Qualified Code(s): I50.43 - Acute on chronic combined systolic (congestive) and diastolic (congestive) heart failure Is this a current diagnosis for this admission?: Yes Plan: We will consult the cardiology (6) Dementia Qualifiers: Dementia behavioral disturbance: without behavioral disturbance Is this a current diagnosis for this admission?: Yes (7) Pacemaker Is this a current diagnosis for this admission?: Yes (8) Prostatic hyperplasia Is this a current diagnosis for this admission?: Yes (9) Thrombocytopenia Is this a current diagnosis for this admission?: Yes Plan: Likely due to the related to the sepsis and with the significant congestive heart failure (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 Is this a current diagnosis for this admission?: Yes Plan: At the CT scan of the abdomen and pelvis and ultrasound (11) Gallstone Qualifiers: Cholecystitis presence: without cholecystitis Is this a current diagnosis for this admission?: Yes Plan: We will get the opinion from the surgery whether patients need any cholecystectomy tubes are not Patient is very high risk for the surgery Patient's overall prognosis is very poor - Time Time Spent with patient: 15-24 minutes Medications reviewed and adjusted accordingly: Yes Anticipated discharge: Other Within: Other - Plan Summary Plan Summary: Continues to current medications
[2019-02-02] MEDS: LEVOFLOXACIN 500 MG/D5W RTU 500 MG/100 ML RTUPB IV SCH (09:38)
[2019-02-02] MEDS: MIDODRINE HCL 5 MG TABLET PO SCH ×2 (11:59→15:11)
[2019-02-03 05:24] LABS: HEMATOCRIT 33.1 % (37.9-51.0); HEMOGLOBIN 10.8 g/dL (13.5-17.0); MEAN CORPUSCULAR HEMOGLOBIN 33.9 pg (27.0-33.4); MEAN CORPUSCULAR HGB CONC 32.6 g/dL (32.0-36.0); MEAN CORPUSCULAR VOLUME 104 fl (80-97); RED BLOOD COUNT 3.17 10^6/uL (4.35-5.55); RED CELL DISTRIBUTION WIDTH 20.8 % (11.5-14.0); WHITE BLOOD COUNT 9.1 10^3/uL (4.0-10.5)
[2019-02-03 05:56] LABS: ALANINE AMINOTRANSFERASE 98 U/L (21-72); ALBUMIN 2.7 g/dL (3.5-5.0); ALKALINE PHOSPHATASE 99 U/L (38-126); ANION GAP 14 (5-19); ASPARTATE AMINO TRANSFERASE 115 U/L (17-59); BILIRUBIN,DIRECT 2.7 mg/dL (0.0-0.4); BILIRUBIN,TOTAL 3.3 mg/dL (0.2-1.3); CALCIUM 9.1 mg/dL (8.4-10.2); CARBON DIOXIDE 20 mmol/L (22-30); CHLORIDE 108 mmol/L (98-107); GLUCOSE 114 mg/dL (75-110); POTASSIUM 4.3 mmol/L (3.6-5.0); SODIUM 141.5 mmol/L (137-145); TOTAL PROTEIN 5.7 g/dL (6.3-8.2)
[2019-02-03 06:00] LABS: PLATELET COUNT 36 10^3/uL (150-450)
[2019-02-03 06:02] LABS: ABSOLUTE LYMPHOCYTES# (MANUAL) 0.1 10^3/uL (0.5-4.7); ABSOLUTE MONOCYTES # (MANUAL) 0.3 10^3/uL (0.1-1.4); ABSOLUTE NEUTROPHILS# (MANUAL) 8.7 10^3/uL (1.7-8.2); BAND NEUTROPHILS % (MANUAL) 2 % (3-5); BASOPHILS % (MANUAL) 0 % (0-2); EOSINOPHILS % (MANUAL) 0 % (0-6); LYMPHOCYTES % (MANUAL) 1 % (13-45); MONOCYTES % (MANUAL) 3 % (3-13); NUCLEATED RED BLOOD CELLS 1 /100 WBC (0); SEGMENTED NEUTROPHILS % (MAN) 93 % (42-78); TOTAL CELLS COUNTED 100
[2019-02-03 06:03] LABS: PLATELET COMMENT DECREASED
[2019-02-03 06:04] LABS: ANISOCYTOSIS 2+; OVALOCYTES SLIGHT; POLYCHROMASIA SLIGHT; TARGET CELLS 1+; TEAR DROP CELLS SLIGHT
[2019-02-03 06:05] LABS: MYELOCYTES % (MANUAL) 1 % (0)
[2019-02-03 06:07] LABS: BLOOD UREA NITROGEN 120 mg/dL (7-20)
[2019-02-03] MEDS: LEVOTHYROXINE SODIUM 0.1 MG TABLET PO SCH (06:52)
--- NOTE | 2019-02-03 08:24 | PDOC CONSULTATION ---
Consultation Consult Date: 02/03/19 Attending physician:: JULIO GUTIERREZ Provider Consulted: CHELI AKBAR Consult reason:: Thrombocytopenia History of Present Illness Admission Date/PCP: 01/31/19 17:13 MARCOS VANCE MD Patient complains of: Thrombocytopenia History of Present Illness: ITZEL MA is a 88 year old male with known history of CHF, thrombus cytopenia on admission, EF is very poor, patient is confused continually, patient came in with hypotension, tachycardia, upon admission platelet count was 46. It is dropped into the 30s. Coagulation studies were done and INR is 2, but patient is not on any anticoagulation or any medications that should raise the INR. Bilirubin is elevated, mostly direct. Patient is not actively bleeding or oozing from any sites that I can tell. Past Medical History Cardiac Medical History: Reports: Congestive Heart Failure, Coronary Artery Disease, Hyperlipidema, Hypertension Denies: Myocardial Infarction Pulmonary Medical History: Denies: Asthma Neurological Medical History: Denies: Seizures Renal/ Medical History: Reports: Chronic Kidney Disease GI Medical History: Reports: Gastroesophageal Reflux Disease Denies: Hepatitis, Hiatal Hernia Musculoskeltal Medical History: Reports: Arthritis - osteo Psychiatric Medical History: Reports: Dementia Hematology: Reports: Anemia Denies: Sickle Cell Disease Past Surgical History Past Surgical History: Reports: Pacemaker Social History Smoking Status: Unknown if Ever Smoked Frequency of Alcohol Use: None Hx Recreational Drug Use: No Drugs: None - Advance Directive Resuscitation Status: Do Not Resuscitate Family History Family History: None, Reviewed & Not Pertinent Parental Family History Reviewed: Yes Children Family History Reviewed: Yes Sibling(s) Family History Reviewed.: Yes Medication/Allergy Home Medications: Dutasteride [Avodart Lf 0.5 mg Capsule] 0.5 mg PO DAILY 01/07/19 Ferrous Sulfate [Feosol 325 mg Tablet] 325 mg PO DAILY 01/07/19 Furosemide [Lasix 20 mg Tablet] 20 mg PO QPM 01/07/19 Levothyroxine Sodium [Synthroid 0.1 mg Tablet] 0.1 mg PO Q6AM 01/07/19 Paricalcitol [Zemplar 1 Mcg Capsule] 1 mcg PO MOWEFR@1000 01/07/19 Pravastatin Sodium [Pravachol] 40 mg PO QHS 01/07/19 Allopurinol [Zyloprim 300 mg Tablet] 100 mg PO DAILY #0 01/13/19 Famotidine [Pepcid 20 mg Tablet] 20 mg PO QHS #30 tablet 01/13/19 Acetaminophen [Tylenol 325 mg Tablet] 650 mg PO Q4HP PRN 01/31/19 Docusate Sodium [Colace 100 mg Capsule] 100 mg PO BID 01/31/19 Midodrine HCl 10 mg PO TID 01/31/19 Valsartan 40 mg PO Q12 01/31/19 Allergies/Adverse Reactions: pseudoephedrine HCl [From Sudafed] Allergy (Severe, Verified 01/07/19 09:09) SWELLING amlodipine besylate [From Lotrel] Allergy (Unknown, Verified 01/07/19 09:09) benazepril HCl [From Lotrel] Allergy (Unknown, Verified 01/07/19 09:09) Review of Systems ROS unobtainable: Due to mental status Physical Exam Vital Signs: Temp Pulse Resp BP Pulse Ox 98.4 F 54 L 18 92/57 L 97 02/03/19 07:23 02/03/19 07:23 02/03/19 07:23 02/03/19 07:23 02/03/19 07:23 Intake & Output 02/02/19 02/03/19 02/04/19 06:59 06:59 06:59 Intake Total 980 660 Output Total 550 515 Balance 430 145 Weight 75.9 kg 75.9 kg General appearance: PRESENT: no acute distress, well-developed, well-nourished Head exam: PRESENT: atraumatic, normocephalic Eye exam: PRESENT: conjunctiva pink, EOMI, PERRLA. ABSENT: scleral icterus Ear exam: PRESENT: normal external ear exam Mouth exam: PRESENT: moist, tongue midline Neck exam: ABSENT: carotid bruit, JVD, lymphadenopathy, thyromegaly Respiratory exam: PRESENT: clear to auscultation rama. ABSENT: rales, rhonchi, wheezes Cardiovascular exam: PRESENT: RRR. ABSENT: diastolic murmur, rubs, systolic murmur Pulses: PRESENT: normal dorsalis pedis pul Vascular exam: PRESENT: normal capillary refill GI/Abdominal exam: PRESENT: normal bowel sounds, soft. ABSENT: distended, guarding, mass, organolmegaly, rebound, tenderness Rectal exam: PRESENT: deferred Extremities exam: PRESENT: full ROM. ABSENT: calf tenderness, clubbing, pedal edema Neurological exam: PRESENT: alert, awake, oriented to person, oriented to place, oriented to time, oriented to situation, CN II-XII grossly intact. ABSENT: motor sensory deficit Psychiatric exam: PRESENT: appropriate affect, normal mood. ABSENT: homicidal ideation, suicidal ideation Skin exam: PRESENT: dry, intact, warm. ABSENT: cyanosis, rash Results Laboratory Results: 02/03/19 04:31 02/03/19 04:31 02/02/19 02/03/19 02/03/19 09:36 04:31 04:31 WBC 9.1 RBC 3.17 L Hgb 10.8 L Hct 33.1 L MCV 104 H MCH 33.9 H MCHC 32.6 RDW 20.8 H Plt Count 36 L Seg Neutrophils % Not Reportable Lymphocytes % Not Reportable Monocytes % Not Reportable Eosinophils % Not Reportable Basophils % Not Reportable Absolute Neutrophils Not Reportable Absolute Lymphocytes Not Reportable Absolute Monocytes Not Reportable Absolute Eosinophils Not Reportable Absolute Basophils Not Reportable Sodium 141.5 Potassium 4.3 Chloride 108 H Carbon Dioxide 20 L Anion Gap 14 BUN 120 H Creatinine 2.81 H Est GFR ( Amer) 26 L Est GFR (Non-Af Amer) 21 L Glucose 114 H Lactic Acid 1.9 Calcium 9.1 Total Bilirubin 3.3 H AST 115 H ALT 98 H Alkaline Phosphatase 99 Total Protein 5.7 L Albumin 2.7 L 01/31/19 14:35 Catheterized Urine Urine Culture - Final Enterobacter Cloacae Enterobacter Cloacae#2 Impressions: Abdomen/Pelvis CT 01/31/19 17:05 IMPRESSION: Limited examination. Given cardiomegaly and bilateral pleural effusions, favor CHF exacerbation with resultant 3rd spacing to include ascites and subcutaneous fat stranding. Stable chronic and incidental findings as detailed above. Abdomen Ultrasound 02/01/19 00:00 IMPRESSION: Moderate right pleural effusion. Cholelithiasis/gallbladder sludge. Limitation. Status: Image reviewed by me Assessment & Plan - Diagnosis (1) Thrombocytopenia Is this a current diagnosis for this admission?: Yes Plan: Multifactorial, probably both secondary to DIC as well as cardiac cirrhosis. Nothing to do as of now, no further work-up needed, patient looks appropriate for hospice. I will contact my hospice admitting clerk Emelina of [facility], I have given her the number of his nephew Brad Stark. Transfuse if platelet count gets under 10 or if actively bleeding.
--- NOTE | 2019-02-03 08:55 | PDOC PROGRESS REPORT ---
Subjective Progress Note for:: 02/03/19 Subjective:: Patient is currently doing same Patient's blood pressure was low requiring restart the Midrin Patient's liver enzymes still elevated The patient's platelet is also down Patient has multiorgan failures As per discussed with the patient's nephew was taking care of the patient's about the patient's poor prognosis and comfort care Reason For Visit: PNEUMONIA Physical Exam Vital Signs: Temp Pulse Resp BP Pulse Ox 98.4 F 54 L 18 92/57 L 97 02/03/19 07:23 02/03/19 07:23 02/03/19 07:23 02/03/19 07:23 02/03/19 07:23 Intake & Output 02/02/19 02/03/19 02/04/19 06:59 06:59 06:59 Intake Total 980 660 Output Total 550 515 Balance 430 145 Weight 75.9 kg 75.9 kg General appearance: PRESENT: no acute distress, well-developed, well-nourished Head exam: PRESENT: atraumatic, normocephalic Eye exam: PRESENT: conjunctiva pink, EOMI, PERRLA. ABSENT: scleral icterus Ear exam: PRESENT: normal external ear exam Mouth exam: PRESENT: moist, tongue midline Neck exam: PRESENT: full ROM. ABSENT: carotid bruit, JVD, lymphadenopathy, thyromegaly Respiratory exam: PRESENT: clear to auscultation rama Cardiovascular exam: PRESENT: RRR. ABSENT: diastolic murmur, rubs, systolic murmur Pulses: PRESENT: normal dorsalis pedis pul, +2 pedal pulses bilateral Vascular exam: PRESENT: normal capillary refill GI/Abdominal exam: PRESENT: normal bowel sounds, soft. ABSENT: distended, guarding, mass, organolmegaly, rebound, tenderness Rectal exam: PRESENT: deferred Neurological exam: PRESENT: alert, awake. ABSENT: motor sensory deficit Psychiatric exam: PRESENT: appropriate affect, normal mood. ABSENT: homicidal ideation, suicidal ideation Skin exam: PRESENT: dry, intact, warm. ABSENT: cyanosis, rash Results Laboratory Results: 02/03/19 04:31 02/03/19 04:31 02/02/19 02/03/19 02/03/19 09:36 04:31 04:31 WBC 9.1 RBC 3.17 L Hgb 10.8 L Hct 33.1 L MCV 104 H MCH 33.9 H MCHC 32.6 RDW 20.8 H Plt Count 36 L Seg Neutrophils % Not Reportable Lymphocytes % Not Reportable Monocytes % Not Reportable Eosinophils % Not Reportable Basophils % Not Reportable Absolute Neutrophils Not Reportable Absolute Lymphocytes Not Reportable Absolute Monocytes Not Reportable Absolute Eosinophils Not Reportable Absolute Basophils Not Reportable Sodium 141.5 Potassium 4.3 Chloride 108 H Carbon Dioxide 20 L Anion Gap 14 BUN 120 H Creatinine 2.81 H Est GFR ( Amer) 26 L Est GFR (Non-Af Amer) 21 L Glucose 114 H Lactic Acid 1.9 Calcium 9.1 Total Bilirubin 3.3 H AST 115 H ALT 98 H Alkaline Phosphatase 99 Total Protein 5.7 L Albumin 2.7 L 01/31/19 14:35 Catheterized Urine Urine Culture - Final Enterobacter Cloacae Enterobacter Cloacae#2 Impressions: Abdomen/Pelvis CT 01/31/19 17:05 IMPRESSION: Limited examination. Given cardiomegaly and bilateral pleural effusions, favor CHF exacerbation with resultant 3rd spacing to include ascites and subcutaneous fat stranding. Stable chronic and incidental findings as detailed above. Abdomen Ultrasound 02/01/19 00:00 IMPRESSION: Moderate right pleural effusion. Cholelithiasis/gallbladder sludge. Limitation. Assessment & Plan - Diagnosis (1) Pneumonia Qualifiers: Pneumonia type: due to unspecified organism Is this a current diagnosis for this admission?: Yes Plan: Continues to IV antibiotic (2) Altered mental status Is this a current diagnosis for this admission?: Yes Plan: Due to the above conditions and sepsis (3) Acute renal failure Qualifiers: Acute renal failure type: unspecified Qualified Code(s): N17.9 - Acute kidney failure, unspecified Is this a current diagnosis for this admission?: Yes Plan: Continues to monitor (4) Anemia in chronic kidney disease Qualifiers: Chronic kidney disease stage: stage 3 (moderate) Qualified Code(s): N18.3 - Chronic kidney disease, stage 3 (moderate); D63.1 - Anemia in chronic kidney disease Is this a current diagnosis for this admission?: Yes (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 Qualifiers: Heart failure chronicity: acute on chronic Qualified Code(s): I50.43 - Acute on chronic combined systolic (congestive) and diastolic (congestive) heart failure Is this a current diagnosis for this admission?: Yes Plan: We will consult the cardiology (6) Dementia Qualifiers: Dementia behavioral disturbance: without behavioral disturbance Is this a current diagnosis for this admission?: Yes (7) Pacemaker Is this a current diagnosis for this admission?: Yes (8) Prostatic hyperplasia Is this a current diagnosis for this admission?: Yes (9) Thrombocytopenia Is this a current diagnosis for this admission?: Yes Plan: As per discussed with the oncology pretty much DIC with hepatic failure with the cardiac cirrhosis with the overall patient's condition is very poor with the multiple comorbidity no other interventions require hospice is pretty much appropriate (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
[2019-02-03] MEDS: MIDODRINE HCL 5 MG TABLET PO SCH ×3 (09:22→15:59)
[2019-02-03] MEDS: SODIUM BICARBONATE 650 MG TABLET PO SCH ×2 (09:22→21:06)
[2019-02-03] MEDS: ALLOPURINOL 100 MG TABLET PO SCH (09:22)
[2019-02-03] MEDS: FAMOTIDINE INJ/PF 20 MG/2 ML SDV IV SCH ×2 (09:23→21:05)
[2019-02-03] MEDS: CEFEPIME 1 GM/D5W RTU 1 GM/50 ML RTUPB IV SCH ×2 (09:23→21:05)
[2019-02-03] MEDS: FUROSEMIDE INJ/PF 20 MG/2 ML SDV IV SCH (09:24)
[2019-02-03] MEDS: DUTASTERIDE 0.5 MG CAPSULE PO SCH (09:25)
[2019-02-03 13:48] LABS: PATH REVIEW PATHOLOGIST REVIEWED
[2019-02-03 13:51] LABS: PATH REVIEW PATHOLOGIST REVIEWED
[2019-02-04] MEDS: LEVOTHYROXINE SODIUM 0.1 MG TABLET PO SCH (05:06)
[2019-02-04 06:07] LABS: ANION GAP 14 (5-19); CALCIUM 9.4 mg/dL (8.4-10.2); CARBON DIOXIDE 21 mmol/L (22-30); CHLORIDE 109 mmol/L (98-107); GLUCOSE 112 mg/dL (75-110); POTASSIUM 4.2 mmol/L (3.6-5.0); SODIUM 143.7 mmol/L (137-145)
[2019-02-04 06:19] LABS: BLOOD UREA NITROGEN 126 mg/dL (7-20)
[2019-02-04 07:17] LABS: HEMATOCRIT 36.2 % (37.9-51.0); HEMOGLOBIN 11.7 g/dL (13.5-17.0); MEAN CORPUSCULAR HEMOGLOBIN 33.9 pg (27.0-33.4); MEAN CORPUSCULAR HGB CONC 32.2 g/dL (32.0-36.0); MEAN CORPUSCULAR VOLUME 105 fl (80-97); RED BLOOD COUNT 3.44 10^6/uL (4.35-5.55); RED CELL DISTRIBUTION WIDTH 21.2 % (11.5-14.0); WHITE BLOOD COUNT 8.4 10^3/uL (4.0-10.5)
[2019-02-04 07:22] LABS: ABSOLUTE LYMPHOCYTES# (MANUAL) 0.3 10^3/uL (0.5-4.7); ABSOLUTE MONOCYTES # (MANUAL) 0.5 10^3/uL (0.1-1.4); ABSOLUTE NEUTROPHILS# (MANUAL) 7.6 10^3/uL (1.7-8.2); BAND NEUTROPHILS % (MANUAL) 3 % (3-5); BASOPHILS % (MANUAL) 0 % (0-2); EOSINOPHILS % (MANUAL) 0 % (0-6); LYMPHOCYTES % (MANUAL) 4 % (13-45); MONOCYTES % (MANUAL) 6 % (3-13); NUCLEATED RED BLOOD CELLS 1 /100 WBC (0); SEGMENTED NEUTROPHILS % (MAN) 87 % (42-78); TOTAL CELLS COUNTED 100
[2019-02-04 07:24] LABS: PLATELET COMMENT DECREASED
[2019-02-04 07:42] LABS: PLATELET COUNT 34 10^3/uL (150-450)
[2019-02-04 07:43] LABS: PLATELET ESTIMATE 36 10^3/uL (150-450)
[2019-02-04] MEDS: MIDODRINE HCL 5 MG TABLET PO SCH ×3 (08:19→16:46)
--- NOTE | 2019-02-04 09:22 | PDOC PROGRESS REPORT ---
Subjective Progress Note for:: 02/04/19 Subjective:: Patient is currently doing same Alert awake answering the questions but still very poor response sometimes Of no chest pain no short of breath Patient's currently going for palliative care due to the multiorgan issues failure and the end-stage heart failure renal failure and hepatic failure and the sepsis Patient is prognosis is very poor we are and life expectancy is less than 6 months and appropriate for hospice care This with the patient's nephew regarding the hospice care understand Reason For Visit: PNEUMONIA Physical Exam Vital Signs: Temp Pulse Resp BP Pulse Ox 97.5 F 105 H 14 76/33 L 82 L 02/04/19 08:11 02/04/19 08:11 02/04/19 08:11 02/04/19 08:11 02/04/19 08:11 Intake & Output 02/03/19 02/04/19 02/05/19 06:59 06:59 06:59 Intake Total 710 318 Output Total 515 275 Balance 195 43 Weight 75.9 kg 75.6 kg General appearance: PRESENT: no acute distress Head exam: PRESENT: atraumatic, normocephalic Eye exam: PRESENT: conjunctiva pink, EOMI, PERRLA. ABSENT: scleral icterus Ear exam: PRESENT: normal external ear exam Mouth exam: PRESENT: moist, tongue midline Neck exam: PRESENT: full ROM. ABSENT: carotid bruit, JVD, lymphadenopathy, thyromegaly Respiratory exam: PRESENT: decreased breath sounds Cardiovascular exam: PRESENT: RRR. ABSENT: diastolic murmur, rubs, systolic murmur Pulses: PRESENT: normal dorsalis pedis pul, +2 pedal pulses bilateral Vascular exam: PRESENT: normal capillary refill GI/Abdominal exam: PRESENT: normal bowel sounds, soft. ABSENT: distended, guarding, mass, organolmegaly, rebound, tenderness Rectal exam: PRESENT: deferred Neurological exam: PRESENT: alert, awake, oriented to person. ABSENT: motor sensory deficit Psychiatric exam: PRESENT: appropriate affect, normal mood. ABSENT: homicidal ideation, suicidal ideation Skin exam: PRESENT: dry, intact, warm. ABSENT: cyanosis, rash Results Laboratory Results: 02/04/19 04:54 02/04/19 04:54 02/04/19 02/04/19 04:54 04:54 WBC 8.4 RBC 3.44 L Hgb 11.7 L Hct 36.2 L MCV 105 H MCH 33.9 H MCHC 32.2 RDW 21.2 H Plt Count 34 L Seg Neutrophils % Not Reportable Lymphocytes % Not Reportable Monocytes % Not Reportable Eosinophils % Not Reportable Basophils % Not Reportable Absolute Neutrophils Not Reportable Absolute Lymphocytes Not Reportable Absolute Monocytes Not Reportable Absolute Eosinophils Not Reportable Absolute Basophils Not Reportable Sodium 143.7 Potassium 4.2 Chloride 109 H Carbon Dioxide 21 L Anion Gap 14 BUN 126 H Creatinine 2.98 H Est GFR ( Amer) 24 L Est GFR (Non-Af Amer) 20 L Glucose 112 H Calcium 9.4 01/31/19 14:35 Catheterized Urine Urine Culture - Final Enterobacter Cloacae Enterobacter Cloacae#2 Impressions: Abdomen/Pelvis CT 01/31/19 17:05 IMPRESSION: Limited examination. Given cardiomegaly and bilateral pleural effusions, favor CHF exacerbation with resultant 3rd spacing to include ascites and subcutaneous fat stranding. Stable chronic and incidental findings as detailed above. Abdomen Ultrasound 02/01/19 00:00 IMPRESSION: Moderate right pleural effusion. Cholelithiasis/gallbladder sludge. Limitation. Assessment & Plan - Diagnosis (1) Pneumonia Qualifiers: Pneumonia type: due to unspecified organism Is this a current diagnosis for this admission?: Yes (2) Altered mental status Is this a current diagnosis for this admission?: Yes (3) Acute renal failure Qualifiers: Acute renal failure type: unspecified Qualified Code(s): N17.9 - Acute kidney failure, unspecified Is this a current diagnosis for this admission?: Yes (4) Anemia in chronic kidney disease Qualifiers: Chronic kidney disease stage: stage 3 (moderate) Qualified Code(s): N18.3 - Chronic kidney disease, stage 3 (moderate); D63.1 - Anemia in chronic kidney disease Is this a current diagnosis for this admission?: Yes (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 Qualifiers: Heart failure chronicity: acute on chronic Qualified Code(s): I50.43 - Acute on chronic combined systolic (congestive) and diastolic (congestive) heart failure Is this a current diagnosis for this admission?: Yes (6) Dementia Qualifiers: Dementia behavioral disturbance: without behavioral disturbance Is this a current diagnosis for this admission?: Yes (7) Pacemaker Is this a current diagnosis for this admission?: Yes (8) Prostatic hyperplasia Is this a current diagnosis for this admission?: Yes (9) Thrombocytopenia Is this a current diagnosis for this admission?: Yes Plan: As per discussed with the oncology pretty much DIC with hepatic failure with the cardiac cirrhosis with the overall patient's condition is very poor with the multiple comorbidity no other interventions require hospice is pretty much appropriate (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 Fletcher for 3.2 is normal to the normal two-point patient Medications reviewed and adjusted accordingly: Yes - There is no foreign Anticipated discharge: Other Within: Other - Inpatient Certification Based on my medical assessment, after consideration of the patient's comorbidities, presenting symptoms, or acuity I expect that the services needed warrant INPATIENT care.: Yes - Use chest x-ray I certify that my determination is in accordance with my understanding of Medicare's requirements for reasonable and necessary INPATIENT services [42 CFR 412.3e].: Yes - Use chest x-ray is Medical Necessity: Significant Comorbidiites Make Outpatient Treatment Too Risky - Plan Summary Plan Summary: Patient is going for the palliative care hospice care
--- NOTE | 2019-02-04 09:40 | PDOC PROGRESS REPORT ---
Subjective Progress Note for:: 02/04/19 Subjective:: No acute changes, community hospice looked into pt status and since pt at [facility], he will need to have hospice initiated by [facility], they now know about pt and will initiate when he gets back. He should be going soon hopefully per nursing. Reason For Visit: PNEUMONIA Physical Exam Vital Signs: Temp Pulse Resp BP Pulse Ox 97.5 F 105 H 14 76/33 L 82 L 02/04/19 08:11 02/04/19 08:11 02/04/19 08:11 02/04/19 08:11 02/04/19 08:11 Intake & Output 02/03/19 02/04/19 02/05/19 06:59 06:59 06:59 Intake Total 710 318 Output Total 515 275 Balance 195 43 Weight 75.9 kg 75.6 kg General appearance: PRESENT: no acute distress, well-developed, well-nourished Head exam: PRESENT: atraumatic, normocephalic Eye exam: PRESENT: conjunctiva pink, EOMI, PERRLA. ABSENT: scleral icterus Ear exam: PRESENT: normal external ear exam Mouth exam: PRESENT: moist, tongue midline Neck exam: ABSENT: carotid bruit, JVD, lymphadenopathy, thyromegaly Respiratory exam: PRESENT: clear to auscultation rama. ABSENT: rales, rhonchi, wheezes Cardiovascular exam: PRESENT: RRR. ABSENT: diastolic murmur, rubs, systolic murmur Pulses: PRESENT: normal dorsalis pedis pul Vascular exam: PRESENT: normal capillary refill GI/Abdominal exam: PRESENT: normal bowel sounds, soft. ABSENT: distended, guarding, mass, organolmegaly, rebound, tenderness Rectal exam: PRESENT: deferred Extremities exam: PRESENT: full ROM. ABSENT: calf tenderness, clubbing, pedal edema Neurological exam: PRESENT: alert, awake, oriented to person, oriented to place, oriented to time, oriented to situation, CN II-XII grossly intact. ABSENT: motor sensory deficit Psychiatric exam: PRESENT: appropriate affect, normal mood. ABSENT: homicidal ideation, suicidal ideation Skin exam: PRESENT: dry, intact, warm. ABSENT: cyanosis, rash Results Laboratory Results: 02/04/19 04:54 02/04/19 04:54 02/04/19 02/04/19 04:54 04:54 WBC 8.4 RBC 3.44 L Hgb 11.7 L Hct 36.2 L MCV 105 H MCH 33.9 H MCHC 32.2 RDW 21.2 H Plt Count 34 L Seg Neutrophils % Not Reportable Lymphocytes % Not Reportable Monocytes % Not Reportable Eosinophils % Not Reportable Basophils % Not Reportable Absolute Neutrophils Not Reportable Absolute Lymphocytes Not Reportable Absolute Monocytes Not Reportable Absolute Eosinophils Not Reportable Absolute Basophils Not Reportable Sodium 143.7 Potassium 4.2 Chloride 109 H Carbon Dioxide 21 L Anion Gap 14 BUN 126 H Creatinine 2.98 H Est GFR ( Amer) 24 L Est GFR (Non-Af Amer) 20 L Glucose 112 H Calcium 9.4 01/31/19 14:35 Catheterized Urine Urine Culture - Final Enterobacter Cloacae Enterobacter Cloacae#2 Impressions: Abdomen/Pelvis CT 01/31/19 17:05 IMPRESSION: Limited examination. Given cardiomegaly and bilateral pleural effusions, favor CHF exacerbation with resultant 3rd spacing to include ascites and subcutaneous fat stranding. Stable chronic and incidental findings as detailed above. Abdomen Ultrasound 02/01/19 00:00 IMPRESSION: Moderate right pleural effusion. Cholelithiasis/gallbladder sludge. Limitation. Assessment & Plan - Diagnosis (1) Thrombocytopenia Is this a current diagnosis for this admission?: Yes Plan: no further w/u or treatment, pt has end stage liver failure, cardiac cirrhosis and DIC also. may continue to worsen. Will sign off, please call w/ questions
[2019-02-04] MEDS: CEFEPIME 1 GM/D5W RTU 1 GM/50 ML RTUPB IV SCH ×2 (10:35→21:11)
[2019-02-04] MEDS: FAMOTIDINE INJ/PF 20 MG/2 ML SDV IV SCH ×2 (10:36→21:13)
[2019-02-04] MEDS: SODIUM BICARBONATE 650 MG TABLET PO SCH ×2 (10:36→21:13)
[2019-02-04] MEDS: ALLOPURINOL 100 MG TABLET PO SCH (10:36)
[2019-02-04] MEDS: DUTASTERIDE 0.5 MG CAPSULE PO SCH (10:36)
[2019-02-04] MEDS: FUROSEMIDE INJ/PF 20 MG/2 ML SDV IV SCH (10:44)
[2019-02-05] MEDS: LEVOTHYROXINE SODIUM 0.1 MG TABLET PO SCH (05:25)
--- NOTE | 2019-02-05 09:22 | Progress Note ---
Provider Note Provider Note: Consult put in on 02/02/19. Per previous surgicalist, no call was made to notify of the consult and he was unaware of the request. I have seen the pt and discussed his care with the nursing staff. He is being discharged today to hospice. He was found to have gallstones and does not have any abdominal pain, nausea, or vomiting. At this time I would recommend against surgical intervention. If the pt's condition improves and he begins to have symptoms, surgery may be considered. I will see the pt again on an as-needed basis.
--- NOTE | 2019-02-05 09:36 | PDOC TRANSFER SUMMARY ---
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 Is this a current diagnosis for this admission?: Yes Summary: As per clinical veterinarian no cardiac interventions (6) Dementia Is this a current diagnosis for this admission?: Yes (7) Pacemaker Is this a current diagnosis for this admission?: Yes (8) Prostatic hyperplasia Is this a current diagnosis for this admission?: Yes (9) Thrombocytopenia Is this a current diagnosis for this admission?: Yes Summary: Seen by the clinic manager and no interventions due to the multiple comorbidity (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 Is this a current diagnosis for this admission?: Yes (11) Gallstone Is this a current diagnosis for this admission?: Yes - Additional Information Resuscitation Status: Do Not Resuscitate Discharge Diet: As Tolerated Discharge Activity: Activity As Tolerated Prescriptions: Morphine Sulfate [Roxanol] 20 mg PO Q4HP PRN #20 ml PRN Reason: Sodium Bicarbonate [Sodium Bicarbonate 650 mg Tablet] 650 mg PO Q12 #60 tablet Home Medications: Dutasteride [Avodart Lf 0.5 mg Capsule] 0.5 mg PO DAILY 01/07/19 Ferrous Sulfate [Feosol 325 mg Tablet] 325 mg PO DAILY 01/07/19 Furosemide [Lasix 20 mg Tablet] 20 mg PO QPM 01/07/19 Levothyroxine Sodium [Synthroid 0.1 mg Tablet] 0.1 mg PO Q6AM 01/07/19 Paricalcitol [Zemplar 1 Mcg Capsule] 1 mcg PO MOWEFR@1000 01/07/19 Pravastatin Sodium [Pravachol] 40 mg PO QHS 01/07/19 Allopurinol [Zyloprim 300 mg Tablet] 100 mg PO DAILY #0 01/13/19 Famotidine [Pepcid 20 mg Tablet] 20 mg PO QHS #30 tablet 01/13/19 Acetaminophen [Tylenol 325 mg Tablet] 650 mg PO Q4HP PRN 01/31/19 Docusate Sodium [Colace 100 mg Capsule] 100 mg PO BID 01/31/19 Midodrine HCl 10 mg PO TID 01/31/19 Morphine Sulfate [Roxanol] 20 mg PO Q4HP PRN #20 ml 02/05/19 Sodium Bicarbonate [Sodium Bicarbonate 650 mg Tablet] 650 mg PO Q12 #60 tablet 02/05/19 History of Present Illness Admission Date/PCP: 01/31/19 17:13 MARCOS VANCE MD History of Present Illness: ITZEL MA is a 88 year old male This is a 88-year-old male with a history of the congestive heart failure with EF is only 20% with a history of the chronic kidney disease history of the thrombocytopenia most likely due to the cardiac cirrhosis history of the dementia hypertension's hyperlipidemia multiple other comorbidity with extensive admission in the hospital following a couple of weeks back seen by the nephrology cardiology nothing much they can offer Discussed with the patient's nephew who is the patient's caregiver regarding the patient's current conditions patient is a DNR/DNI at the times Patient's was sent to the nursing facility brought to the department because of the altered mental status and the fever and presumed urinary tract infections Patient had a urine culture was done no record at this point in the nursing facilities In emergency department patient's have a questionable multilobar pneumonia and a fever and diagnosed with the sepsis and the patient also have a heart failure and the kidney failure and decided to admit in the hospital Patient's when I saw it basically on a baseline alert awake answer the questions still very weak Hospital Course Hospital Course: This is a 88-year-old male's with a significant history of the congestive heart failure with low EF worsening the kidney functions and also worsening the hepatic failure due to the cardiac cirrhosis hypertension's and multiple other morbidity and top of that the underlying significant dementia's. Patient's son recently admitting in the hospital for extensive evaluations pretty much very poor prognosis per cardiology nephrology. Patient readmitted because of the pneumonia sepsis and found to be heart failure kidney failure and hepatic f ailure and significant worsening interventions and respiratory failure. At this point very extensive discussions with other furniture sales consultant pretty much patients require a hospice and comfort care due to the multiple comorbidities and very poor prognosis for the life expectancy is less than 6-month Discussed with the patient's nephew who was taking care of the patient's and nephew discussed with other family member and decided at this point and explained the patient's probably need a hospice and comfort care and agree patient's discharge back to the nursing facility for hospice and comfort care Physical Exam Vital Signs: Temp Pulse Resp BP Pulse Ox 97.3 F 85 17 97/50 L 100 02/05/19 03:10 02/05/19 07:00 02/05/19 03:10 02/05/19 03:10 02/05/19 03:10 Intake & Output 02/04/19 02/05/19 02/06/19 06:59 06:59 06:59 Intake Total 318 486 Output Total 275 440 Balance 43 46 Weight 75.6 kg 75.4 kg General appearance: PRESENT: no acute distress Head exam: PRESENT: atraumatic, normocephalic Eye exam: PRESENT: conjunctiva pink, EOMI, PERRLA. ABSENT: scleral icterus Ear exam: PRESENT: normal external ear exam Mouth exam: PRESENT: moist, tongue midline Neck exam: ABSENT: carotid bruit, JVD, lymphadenopathy, thyromegaly Respiratory exam: PRESENT: clear to auscultation rama. ABSENT: rales, rhonchi, wheezes Cardiovascular exam: PRESENT: RRR. ABSENT: diastolic murmur, rubs, systolic murmur Pulses: PRESENT: normal dorsalis pedis pul Vascular exam: PRESENT: normal capillary refill GI/Abdominal exam: PRESENT: normal bowel sounds, soft. ABSENT: distended, guarding, mass, organolmegaly, rebound, tenderness Rectal exam: PRESENT: deferred Extremities exam: PRESENT: full ROM. ABSENT: calf tenderness, clubbing, pedal edema Neurological exam: PRESENT: alert, altered, awake. ABSENT: motor sensory deficit Psychiatric exam: PRESENT: appropriate affect, normal mood. ABSENT: homicidal ideation, suicidal ideation Skin exam: PRESENT: dry, intact, warm. ABSENT: cyanosis, rash Results Laboratory Results: 02/04/19 04:54 02/04/19 04:54 Impressions: Abdomen/Pelvis CT 01/31/19 17:05 IMPRESSION: Limited examination. Given cardiomegaly and bilateral pleural effusions, favor CHF exacerbation with resultant 3rd spacing to include ascites and subcutaneous fat stranding. Stable chronic and incidental findings as detailed above. Abdomen Ultrasound 02/01/19 00:00 IMPRESSION: Moderate right pleural effusion. Cholelithiasis/gallbladder sludge. Limitation. Transfer Plan - Time Spent with Patient Time spent with patient: Greater than 30 Minutes Qualifiers - * PATIENT BEING DISCHARGED WITH ANY OF THE FOLLOWING DIAGNOSIS: No VTE patient discharged on overlapping Therapy?: Yes Acute Heart Failure Is this a Heart Failure Patient?: Yes Documentation of LVEF assessment?: Yes LVEF < 40%?: Yes-if yes answer questions a through e a) Discharged on ACEI?: No, document contraindications b) Discharges on ARB?: No-document contraindications c) Discharged on ARNI?: No-Document Contraindications d) Discharged on evidence-based Beta roberto(carvedilol, sustained release metoprolol succinate, or bisoprolol)?: Yes Reason(s) not discharged on Evidence-Based Beta Blockers (carvedilol, sustained released metoprolol succinate, or bisoprolol): Hypotension e) For LVEF <35%, discharged on Aldosterone antagonist?: Yes 3. Anticoagulant therapy for permanect/persistent/paraoxysmal Afib or Aflutter: No, document contraindications Reason(s) not discharged on anticoagulant therapy for permanect/persistent/paraoxysmal Afib or Aflutter: Risk for bleeding Follow-up Appointment scheduled within 7 days?: No, document reason - Patient is discharged with the hospice and comfort care With the multiple organ failure dementia patient's life expectancy is less than 6-month Discussed with all coordinate consultants agree with the comfort care Discussed with the patient's family Plan Time Spent: Greater than 30 Minutes
[2019-02-05] MEDS: DUTASTERIDE 0.5 MG CAPSULE PO SCH (10:22)
[2019-02-05] MEDS: MIDODRINE HCL 5 MG TABLET PO SCH ×3 (10:22→17:29)
[2019-02-05] MEDS: SODIUM BICARBONATE 650 MG TABLET PO SCH (10:23)
[2019-02-05] MEDS: ALLOPURINOL 100 MG TABLET PO SCH (10:23)
[2019-02-05] MEDS: FUROSEMIDE INJ/PF 20 MG/2 ML SDV IV SCH (10:37)
[2019-02-05] MEDS: CEFEPIME 1 GM/D5W RTU 1 GM/50 ML RTUPB IV SCH (10:37)
[2019-02-05] MEDS: FAMOTIDINE INJ/PF 20 MG/2 ML SDV IV SCH (10:37)
[2019-02-05 20:58] VITALS: BP 88/54
== END 2019-02-05 20:56 | DRG 193 ==
LOC: ER 13:12 → EH 17:13 → 3W 20:51
PROVIDERS: ADMIT Family Medicine; ATTEND Family Medicine
PROC: 5A09457 Assistance with Respiratory Ventilation, 24-96 Consecutive Hours, Continuous Positive Airway Pressure (ICD-10-PCS; principal; 2019-02-01)
DX: J18.9 Pneumonia, unspecified organism (principal); I50.43 Acute on chronic combined systolic (congestive) and diastolic (congestive) heart failure; N17.9 Acute kidney failure, unspecified; I13.0 Hypertensive heart and chronic kidney disease with heart failure and stage 1 through stage 4 chronic kidney disease, or unspecified chronic kidney disease; I42.0 Dilated cardiomyopathy; Z66 Do not resuscitate; D63.1 Anemia in chronic kidney disease; F03.90 Unspecified dementia, unspecified severity, without behavioral disturbance, psychotic disturbance, mood disturbance, and anxiety; N40.0 Benign prostatic hyperplasia without lower urinary tract symptoms; D69.6 Thrombocytopenia, unspecified; K76.1 Chronic passive congestion of liver; K80.80 Other cholelithiasis without obstruction; E78.5 Hyperlipidemia, unspecified; I25.10 Atherosclerotic heart disease of native coronary artery without angina pectoris; N18.3 Chronic kidney disease, stage 3 (moderate); K21.9 Gastro-esophageal reflux disease without esophagitis; E03.9 Hypothyroidism, unspecified; I25.2 Old myocardial infarction; Z95.0 Presence of cardiac pacemaker; Z79.899 Other long term (current) drug therapy; Z79.1 Long term (current) use of non-steroidal anti-inflammatories (NSAID); Z88.8 Allergy status to other drugs, medicaments and biological substances; Z82.49 Family history of ischemic heart disease and other diseases of the circulatory system
CPT/HCPCS: 36415; 36600; 51702; 71045; 74176; 76700; 80048; 80053; 80076; 81001; 82803; 82962; 83605; 85025; 85610; 87040; 87086; 87088; 87186; 93005; 93010; 94660; 99285; J0692; J0696; J1940; J1956; S0028